=== PATIENT | female | born 1950 | race Caucasian/White ===

== ENCOUNTER 2020-10-03 07:36 | Outpatient (REF) | payer OTHER, SELFPAY ==
[2020-10-03 10:01] LABS: Free T4 (Free Thyroxine) 1.14 ng/dL (0.71-1.85); Thyroid Stimulating Hormone 9.34 uIU/mL (0.32-4.0)
== END 2020-10-03 07:37 | disposition home or self-care (01) ==
LOC: HO.LAB 07:36
PROVIDERS: PCP Internal Medicine; Visit Provider Internal Medicine Endocrinology, Diabetes & Metabolism
DX: E03.9 Hypothyroidism, unspecified (principal)
CPT/HCPCS: 84439; 84443

== ENCOUNTER → 2020-10-04 07:43 | Outpatient (BNVA) | payer OTHER, SELFPAY | PROVIDERS: PCP Internal Medicine; Referring Provider Internal Medicine; Visit Provider Internal Medicine Endocrinology, Diabetes & Metabolism | DX: Z76.89 Persons encountering health services in other specified circumstances (principal) ==

== ENCOUNTER 2020-12-05 09:28 | Outpatient (REF) | payer MEDICARE, SELFPAY ==
[2020-12-05 10:53] LABS: Free T4 (Free Thyroxine) 1.34 ng/dL (0.71-1.85); Thyroid Stimulating Hormone 0.81 uIU/mL (0.32-4.0)
== END 2020-12-05 09:29 | disposition home or self-care (01) ==
LOC: HO.LAB 09:28
PROVIDERS: PCP Internal Medicine; Visit Provider Internal Medicine Endocrinology, Diabetes & Metabolism
DX: E03.9 Hypothyroidism, unspecified (principal); E78.5 Hyperlipidemia, unspecified
CPT/HCPCS: 36415; 84439; 84443

== ENCOUNTER 2021-01-30 07:22 | Outpatient (REF) | payer MEDICARE, SELFPAY ==
[2021-01-30 09:03] LABS: Thyroid Stimulating Hormone 2.21 uIU/mL (0.32-4.0)
== END 2021-01-30 07:23 | disposition home or self-care (01) ==
LOC: HO.LAB 07:22
PROVIDERS: PCP Internal Medicine; Visit Provider Internal Medicine Endocrinology, Diabetes & Metabolism
DX: E03.9 Hypothyroidism, unspecified (principal)
CPT/HCPCS: 36415; 84439; 84443

== ENCOUNTER → 2021-02-03 07:37 | Outpatient (BNVA) | payer MEDICARE, SELFPAY | PROVIDERS: PCP Internal Medicine; Visit Provider Internal Medicine Endocrinology, Diabetes & Metabolism | DX: Z13.89 Encounter for screening for other disorder (principal) | CPT/HCPCS: Q3014 ==

== ENCOUNTER 2021-04-07 08:09 | Outpatient (REF) | payer MEDICARE, SELFPAY ==
--- NOTE | ~2021-04-07 | MM_ITS ---
EXAMINATION: MM SCREENING DIGITAL BREAST TOMOSYNTHESIS, BILATERAL CLINICAL INFORMATION: Screening. Asymptomatic. The lifetime risk of breast cancer based on the Tyrer-Cuzick Model is 6%. COMPARISON: Mammography: 03/23/2020, 10/06/2018, 09/12/2017, 03/30/2015 TECHNIQUE: Digital breast tomosynthesis is performed in both the craniocaudal and mediolateral oblique views along with computer-aided detection (CAD). Synthesized 2D images are generated from the tomosynthesis. Additional right CC view is provided. FINDINGS: There are scattered areas of fibroglandular density (ACR BI-RADS breast composition Category b). There are no significant masses, abnormal calcifications, or other abnormalities. The axilla are unremarkable. There is chronic bilateral nipple retraction, greater on right. MM/MM tomosynthesis screening BI IMPRESSION: No significant changes from prior exams. ASSESSMENT: BI-RADS 2: Benign RECOMMENDATION: Routine annual mammography screening. This patient's information was entered into a reminder system with a target due date for their next mammogram.
== END 2021-04-07 08:10 | disposition home or self-care (01) ==
LOC: HO.MAMMO 08:09
PROVIDERS: PCP Internal Medicine; Visit Provider Internal Medicine
DX: Z12.31 Encounter for screening mammogram for malignant neoplasm of breast (principal)
CPT/HCPCS: 77063; 77067

== ENCOUNTER → 2021-06-29 09:31 | Outpatient (REF) | payer MEDICARE, SELFPAY ==
--- NOTE | ~2021-06-29 | US_ITS ---
EXAMINATION: US EXTRACRANIAL CAROTID DUPLEX, BILATERAL CLINICAL INFORMATION: Bilateral carotid disease, history of left endarterectomy COMPARISON: Carotid ultrasound on 06/15/2020 TECHNIQUE: Real-time ultrasound and Doppler techniques (integrating B-mode 2-D vascular images, Doppler spectral analysis and color-flow Doppler imaging) were utilized to interrogate the extracranial carotid arteries, the vertebral arteries and proximal subclavian arteries bilaterally. The degree of stenosis is determined by criteria similar to NASCET. FINDINGS: Right Side: 1. There is calcified atherosclerotic plaque seen in the bifurcation/proximal ICA region. 2. The common carotid artery PSV proximally is 63 cm/s and distally 59 cm/s. 3. The proximal internal carotid artery velocities are 128 cm/s systolic and 52 cm/s diastolic. 4. The proximal external carotid artery PSV is 167 cm/s. 5. The vertebral artery shows antegrade flow. 6. The subclavian artery waveforms are normal. Left Side: 1. There is calcified atherosclerotic plaque seen in the bifurcation/proximal ICA region. 2. The common carotid artery PSV proximally is 107 cm/s and distally 85 cm/s. 3. The proximal internal carotid artery velocities are 47 cm/s systolic and 21 cm/s diastolic. 4. The proximal external carotid artery PSV is 105 cm/s. 5. The vertebral artery shows antegrade flow. 6. The subclavian artery waveforms are normal. Incidental note is made of bilateral normal-appearing cervical lymph nodes. US/US carotid duplex BI IMPRESSION: 1. RIGHT: Moderate, hemodynamically significant stenosis of the proximal right internal carotid artery corresponding to a 50-79% stenosis by velocity criteria. 2. LEFT: Minimal, non-hemodynamically significant stenosis of the proximal left internal carotid artery corresponding to a 0-49% stenosis by velocity criteria. 3. Mild progression of disease on the right compared to 06/15/2020.
--- NOTE | 2021-06-29 09:34 | CA_ITS ---
Transthoracic Echocardiogram Patient (Last, First, Middle): Izzy Weller T Gender: Female Date of : 1950 Age: 70 Procedure Date: 06/29/2021 Procedure Type: Transthoracic Echocardiogram Location: OP Height: 162.56 cm Weight: 120.2 kg BSA: 2.20 m2 Heart Rate: bpm BP: 110 / 70 mmHg Veterinarian: OXANA Referring MD: Efren Duggan MD Dye Line Operator: Efren Duggan MD Symptoms: I35.0 - Nonrheumatic aortic (valve) stenosis Study Quality: Fair ECG Rhythm: Sinus Conclusions: - 1. Normal LV systolic function with grade 1 diastolic dysfunction 2. Moderate to severe, more likely moderate aortic stenosis 3. Normal RV systolic pressure 4. No gross pericardial effusion Findings Left Ventricle Normal left ventricular size, thickness, and systolic function. The visually estimated ejection fraction is between 55-60%. There is no evidence of regional wall motion abnormalities. Spectral Doppler is indicative of an impaired relaxation filling pattern. E/E prime ratio is <8, consistent with normal filling pressures. Evidence suggests grade I (mild) diastolic dysfunction. Right Ventricle Normal right ventricular cavity size and systolic function. Atria The left atrium is normal in size. Interatrial shunt cannot be excluded. The right atrium is normal in size. Aortic Valve The aortic valve was not well visualized. There is moderate calcification of the aortic valve. There is moderate to severe aortic valve stenosis. The peak aortic gradient is 61 mmHg.The mean gradient is 29 mmHg. The aortic valve area is 1.00 cm2. There is mild aortic valve regurgitation. Mitral Valve The mitral valve was not well visualized. There is mild anterior mitral leaflet thickening. There is mild mitral annular calcification. There is trace mitral valve regurgitation. There is no mitral valve stenosis. Pulmonic Valve The pulmonic valve was not well visualized. Tricuspid Valve Likely normal tricuspid valve structure and function. There is trace tricuspid valve regurgitation. The right ventricular systolic pressure is normal. The right ventricular systolic pressure is 29 mmHg. Normal right atrial pressure. There is no evidence of pulmonary hypertension. Great Vessels All visible segments of the aorta are normal in size. The pulmonary artery was not well visualized. Venous The inferior vena cava is normal in size and collapses greater than 50% with inspiration. Pericardium/Pleural There is no evidence of pericardial effusion. Prior Study Comparison Changes noted compared to prior study dated: 06/15/2020. Aortic stenosis is more in the range of moderate to severe aortic stenosis, severity of aortic stenosis could be overestimated due to measured LVOT diameter Measurements 2D Linear Measurements IVSd: 1.13 0.6-0.9/0.6-1.0 cm LVIDd: 3.45 3.9-5.3/4.2-5.9 cm LVIDd Index: 1.57 2.4-3.2/2.2-3.1 cm/m2 LVIDs: 2.43 2.0-3.6 cm LVPWd: 1.01 0.7-1.1 cm Ao Root: 3.00 2.1-3.5 cm LA Diam: 3.00 2.7-3.8/3.0-4.0 cm LAIDs Index: 1.36 1.5-2.3 cm/m2 LV Mass: 138.96 67-162/88-224 g LV Mass Index: 63.16 43-95/49-115 g/m2 LVOT Diam: 1.90 3.0+(-)1.3 cm 2D Systolic Function EF 4C: 57.00 >55% EF 2C: 58.40 >55% EF BiP: 57.60 >55% Mitral Valve MV Pk E: 0.75 MV PK A: 0.93 MV Decel Time: 191.00 E/A: 0.80 E'Lateral: 8.49 E'Medial: 8.05 E/E' Med: 9.30 E/E' Lat: 8.80 PHT: 56.00 MVA PHT: 3.93 Decel Magoffin: 3.90 Aortic Valve AoV Pk Kostas: 3.92 AoV Mn Kostas: 2.47 AoV VTI: 0.67 AoV Pk Grad: 61.00 Aov Mn Grad: 29.00 SERGIO Cont.VTI: 1.00 LVOT LVOT Pk Kostas: 1.14 LVOT Mn Kostas: 0.81 LVOT VTI: 0.24 LVOT Pk Grad: 5.00 LVOT Mn Grad: 3.00 LVOT Diam: 1.90 LVOT Area: 2.84 Diastolic Function MV Pk E: 0.75 MV Pk A: 0.93 E/A: 0.80 E'Medial: 8.05 E/E' Med: 9.30 E' Laterial: 8.49 E/E' Lat: 8.80 Right Ventricle TAPSE (mm): 2.26 TVS' Kostas: 16.00 Tricuspid Valve TR Pk Kostas: 2.57 TR Pk Grad: 26.00 RA Press: 3.00 RVSP: 29.00 Great Vessels Aorta Ao Root-2D: 3.00 2.0-3.7 cm Ao Asc: 3.10 2.1-3.4 cm Ao Arch: 2.90 Updated in Other Vendor System with Status of Final Efren Duggan MD electronically signed on 06/30/2021 3:38:24 PM with status of Final
== END ==
LOC: HO.CARD 09:31
PROVIDERS: PCP Internal Medicine; Visit Provider Internal Medicine Cardiovascular Disease
DX: I65.23 Occlusion and stenosis of bilateral carotid arteries (principal); Q25.3 Supravalvular aortic stenosis; Z98.890 Other specified postprocedural states
CPT/HCPCS: 93306; 93880

== ENCOUNTER → 2021-07-03 14:18 | Outpatient (BNVA) | payer MEDICARE, SELFPAY | PROVIDERS: PCP Internal Medicine; Referring Provider Internal Medicine; Visit Provider Internal Medicine Cardiovascular Disease | DX: I35.0 Nonrheumatic aortic (valve) stenosis (principal); I65.23 Occlusion and stenosis of bilateral carotid arteries | CPT/HCPCS: 93005; 99212 ==

== ENCOUNTER 2021-08-14 09:58 | Outpatient (REF) | payer MEDICARE, SELFPAY ==
[2021-08-14 10:59] LABS: Anion Gap 12 (12-20); Blood Urea Nitrogen 14 mg/dL (9-16); Calcium 9.5 mg/dL (8.4-10.2); Carbon Dioxide 28 mmol/L (22-29); Chloride 108 mmol/L (96-108); Cholesterol 118 mg/dL; Estimated Glomerular Filt Rate > 60; Glucose Fasting 112 mg/dL (60-99); HDL Cholesterol 46 mg/dL; LDL Cholesterol Calculated 54 mg/dl; Potassium 4.4 mmol/L (3.3-5.1); Sodium 144 mmol/L (135-145); Triglycerides 91 mg/dL
[2021-08-14 11:22] LABS: Thyroid Stimulating Hormone 0.74 uIU/mL (0.32-4.0)
[2021-08-14 11:23] LABS: Free T4 (Free Thyroxine) 1.31 ng/dL (0.71-1.85)
== END 2021-08-14 09:59 | disposition home or self-care (01) ==
LOC: HO.LAB 09:58
PROVIDERS: Internal Medicine Cardiovascular Disease; Absent Provider Internal Medicine Endocrinology, Diabetes & Metabolism; PCP Internal Medicine; Visit Provider Physician Assistant
DX: I10 Essential (primary) hypertension (principal); Z78.0 Asymptomatic menopausal state; I25.10 Atherosclerotic heart disease of native coronary artery without angina pectoris; I65.23 Occlusion and stenosis of bilateral carotid arteries; E78.5 Hyperlipidemia, unspecified; E03.9 Hypothyroidism, unspecified
CPT/HCPCS: 36415; 80048; 80061; 82306; 84439; 84443; 86141

== ENCOUNTER 2021-12-21 11:00 | Outpatient (RCR) | payer MEDICARE, SELFPAY | END 2022-01-31 15:30 | disposition home or self-care (01) | LOC: HO.OT 11:00 | PROVIDERS: PCP Internal Medicine; Visit Provider Internal Medicine | DX: M25.521 Pain in right elbow (principal) | CPT/HCPCS: 97110; 97140; 97165; 97760 ==

== ENCOUNTER 2022-01-31 08:02 | Outpatient (REF) | payer MEDICARE, SELFPAY ==
--- NOTE | ~2022-01-31 | US_ITS ---
EXAMINATION: US THYROID CLINICAL INFORMATION: Nontoxic multinodular goiter. COMPARISON: Thyroid ultrasound 11/25/2019. TECHNIQUE: Linear transducer grayscale and color Doppler examination with attention to the region of the thyroid. FINDINGS: SIZE: Measurements of the thyroid lobes and nodules are given in sagittal, anteroposterior and transverse dimensions respectively. Right Thyroid Lobe: 2.7 x 0.8 x 1.4 cm, volume 1.6 mL. Previously 3.0 x 0.80 x 1.1 cm, volume 1.4 mL. Parenchyma: The gland echotexture is homogeneous. Thyroid vascularity is normal. Left Thyroid Lobe: 2.2 x 0.8 x 1.1 cm, volume 1.0 mL. Previously 2.8 x 0.90 x 1.0 cm, volume 1.3 mL. Parenchyma: The gland echotexture is homogeneous. Thyroid vascularity is normal. Isthmus: 0.2 cm in maximum AP dimension. Previously 0.20 cm. Estimated total number of nodules greater than or equal to 1 cm: 0. Operations Manager Station nodules are described as follows: 1. Location: Left mid. Size: 0.4 x 0.2 x 0.2 cm, volume 0.007 mL. Previously: 0.8 x 0.2 x 0.4 cm, volume 0.032 mL. Nodule characteristics: Composition: Solid (2). Echogenicity: Hypoechoic (2). Shape: Not taller than wide (0). Margins: Smooth (0). Echogenic Foci: None (0). ACR TI-RADS total points: 4 ACR TI-RADS category: 4 Significant change in size (>/= 20% in 2 dimensions and minimal increase of 2 mm or 50% or greater increase in volume): Change in features: Change in ACR TI-RADS risk category: Not applicable 2. Location: Right inferior. Size: 0.4 x 0.2 x 0.2 cm, volume 0.009 mL. Previously: 0.5 x 0.3 x 0.2 cm, volume 0.015 mL. Nodule characteristics: Composition: Solid (2). Echogenicity: Isoechoic (1). Shape: Not taller than wide (0). Margins: Smooth (0). Echogenic Foci: None (0). ACR TI-RADS total points: 3 ACR TI-RADS category: 3 Significant change in size (>/= 20% in 2 dimensions and minimal increase of 2 mm or 50% or greater increase in volume): Change in features: Change in ACR TI-RADS risk category: Not applicable NODES: There is a lymph node adjacent to the right lobe. This measures 1.4 x 0.8 x 8 cm sagittal AP and transverse dimension. This is normal in size and appears diffusely hypoechoic with loss of fatty hilum. This is similar to November 2019 exam. US/US thyroid IMPRESSION: Small thyroid gland. No significant change in bilateral small nodules. ACR TI-RADS RECOMMENDATION REFERENCE: Ultrasound-guided fine-needle aspiration, followup ultrasound, no further follow up. * TR1 (0 point) and TR 2 (2 points): No FNA or follow up * TR3 (3 points): FNA if more than or equal to 2.5 cm in maximum dimension, followup ultrasound in 1, 3 and 5 years if 1.5 to 2.4 cm in maximum dimension. * TR4 (4-6 points): FNA if more than or equal to 1.5 cm in maximum dimension, followup ultrasound in 1, 2, 3 and 5 years if 1 to 1.4 cm in maximum dimension. * TR5 (more than or equal to 7 points): FNA if more than or equal to 1 cm in maximum dimension, followup ultrasound every year for 5 years if 0.5 to 0.9 cm in maximum dimension. * TR3, TR4 or TR5 nodules that are below the size threshold for follow up receive no follow up.
== END 2022-01-31 08:03 | disposition home or self-care (01) ==
LOC: HO.US 08:02
PROVIDERS: PCP Internal Medicine; Visit Provider Internal Medicine Endocrinology, Diabetes & Metabolism
DX: E04.2 Nontoxic multinodular goiter (principal)
CPT/HCPCS: 76536

== ENCOUNTER → 2022-03-01 08:00 | Outpatient (BNVA) | payer MEDICARE, SELFPAY | PROVIDERS: PCP Internal Medicine; Visit Provider Internal Medicine Endocrinology, Diabetes & Metabolism | DX: E03.9 Hypothyroidism, unspecified (principal); E04.1 Nontoxic single thyroid nodule; Z79.899 Other long term (current) drug therapy | CPT/HCPCS: 99212 ==

== ENCOUNTER 2022-03-12 10:08 | Outpatient (REF) | payer MEDICARE, SELFPAY ==
[2022-03-12 11:44] LABS: C Reactive Protein 0.42 mg/dL (< or = 0.50)
[2022-03-12 12:09] LABS: Free T4 (Free Thyroxine) 1.85 ng/dL (0.71-1.85); Thyroid Stimulating Hormone 0.06 uIU/mL (0.32-4.0)
[2022-03-14 06:32] LABS: Thyroid Peroxidase Antibodies 3 IU/mL (<9)
== END 2022-03-12 10:09 | disposition home or self-care (01) ==
LOC: HO.HMGCLDS 10:08
PROVIDERS: Absent Provider Internal Medicine Cardiovascular Disease; PCP Internal Medicine; Visit Provider Internal Medicine
DX: E03.9 Hypothyroidism, unspecified (principal); R79.82 Elevated C-reactive protein (CRP)
CPT/HCPCS: 36415; 84439; 84443; 86140; 86376

== ENCOUNTER 2022-04-11 07:37 | Outpatient (REF) | payer MEDICARE, SELFPAY ==
--- NOTE | ~2022-04-11 | MM_ITS ---
EXAMINATION: MM SCREENING DIGITAL BREAST TOMOSYNTHESIS, BILATERAL CLINICAL INFORMATION: Screening. Asymptomatic. The lifetime risk of breast cancer based on the Tyrer-Cuzick Model is 18%. COMPARISON: Mammography: 04/07/2021, 01/22/2020, 10/06/2018, 09/12/2017 TECHNIQUE: Digital breast tomosynthesis is performed in both the craniocaudal and mediolateral oblique views along with computer-aided detection (CAD). Synthesized 2D images are generated from the tomosynthesis. Additional bilateral CC views are provided. FINDINGS: There are scattered areas of fibroglandular density (ACR BI-RADS breast composition Category b). There is inhomogeneous parenchymal pattern with shifting fibroglandular densities from year to year related to positioning. There is no developing density or interval significant mass or architectural abnormality. There is chronic bilateral nipple retraction. No skin thickening. Scattered ductal secretory calcifications are present on the right and some isolated scattered punctate round calcifications on left. The axilla are unremarkable. No significant changes. MM/MM tomosynthesis screening BI IMPRESSION: No significant changes from prior studies. ASSESSMENT: BI-RADS 2: Benign RECOMMENDATION: Routine annual mammography screening. This patient's information was entered into a reminder system with a target due date for their next mammogram.
== END 2022-04-11 07:38 | disposition home or self-care (01) ==
LOC: HO.MAMMO 07:37
PROVIDERS: Visit Provider Internal Medicine
DX: Z12.31 Encounter for screening mammogram for malignant neoplasm of breast (principal)
CPT/HCPCS: 77063; 77067

== ENCOUNTER → 2022-06-13 09:29 | Outpatient (REF) | payer MEDICARE, SELFPAY ==
--- NOTE | ~2022-06-13 | US_ITS ---
EXAMINATION: US EXTRACRANIAL CAROTID DUPLEX, BILATERAL CLINICAL INFORMATION: Carotid stenosis, status post left carotid endarterectomy COMPARISON: 06/29/2021 TECHNIQUE: Real-time ultrasound and Doppler techniques (integrating B-mode 2-D vascular images, Doppler spectral analysis and color-flow Doppler imaging) were utilized to interrogate the extracranial carotid arteries, the vertebral arteries and proximal subclavian arteries bilaterally. The degree of stenosis is determined by criteria similar to NASCET. FINDINGS: Right Side: 1. There is mild to moderate atherosclerotic plaque seen in the bifurcation/proximal ICA region. 2. The common carotid artery PSV proximally is 80 cm/s and distally 76 cm/s. 3. The proximal internal carotid artery velocities are 157 cm/s systolic and 39.3 cm/s diastolic. 4. The proximal external carotid artery PSV is 112 cm/s. 5. The vertebral artery shows antegrade flow. 6. The subclavian artery waveforms are normal. Left Side: 1. Postsurgical changes again seen consistent with prior carotid endarterectomy. There is no significant recurrent atherosclerotic plaque seen in the bifurcation/proximal ICA region. 2. The common carotid artery PSV proximally is 92 cm/s and distally 90 cm/s. 3. The proximal internal carotid artery velocities are 61 cm/s systolic and 20 cm/s diastolic. 4. The proximal external carotid artery PSV is 123 cm/s. 5. The vertebral artery shows antegrade flow. 6. The subclavian artery waveforms are normal. US/US carotid duplex BI IMPRESSION: 1. RIGHT: Moderate, hemodynamically significant stenosis of the proximal right internal carotid artery corresponding to a 50-79% stenosis by velocity criteria. 2. LEFT: Status post carotid endarterectomy without significant stenosis of the proximal left internal carotid artery corresponding to a 0-49% stenosis by velocity criteria. 3. There is no change in the category severity of disease when compared to the previous study dated 06/29/2021.
--- NOTE | 2022-06-13 09:32 | CA_ITS ---
Transthoracic Echocardiogram Patient (Last, First, Middle): Izzy Weller T Gender: Female Date of : 1950 Age: 71 Procedure Date: 06/13/2022 Procedure Type: Transthoracic Echocardiogram Location: OP Height: 162.56 cm Weight: 112.04 kg BSA: 2.14 m2 Heart Rate: 91 bpm BP: 120 / 80 mmHg Manager Small Business: ROSALES Referring MD: Efren Duggan MD [facility] [employer] Assembler: Efren Duggan MD Symptoms: I35.0 - Nonrheumatic aortic (valve) stenosis Study Quality: Adequate ECG Rhythm: Sinus Conclusions: - 1. Normal LV systolic function with grade 1 diastolic dysfunction 2. Severe aortic stenosis with mean gradient of 41 mmHg 3. Normal RV systolic pressure 4. No gross pericardial effusion 5. Mildly dilated ascending aorta Findings Left Ventricle Normal left ventricular size and systolic function. There is mildly increased left ventricular wall thickness. The visually estimated ejection fraction is between 55-60%. Spectral Doppler is indicative of an impaired relaxation filling pattern. E/E prime ratio is <8, consistent with normal filling pressures. Evidence suggests grade I (mild) diastolic dysfunction. Right Ventricle Normal right ventricular cavity size and systolic function. Atria The left atrium is normal in size. Interatrial shunt cannot be excluded. The right atrium is normal in size. Aortic Valve There is moderate calcification of the aortic valve. There is moderate thickening of the aortic valve. There is severe aortic valve stenosis. The peak aortic gradient is 66 mmHg.The mean gradient is 41 mmHg. There is no aortic valve regurgitation. Mitral Valve There is mild anterior and posterior mitral leaflet thickening. There is mild mitral annular calcification. There is trace mitral valve regurgitation. There is no mitral valve stenosis. Pulmonic Valve The pulmonic valve was not well visualized. Tricuspid Valve Likely normal tricuspid valve structure and function. There is trace tricuspid valve regurgitation. The right ventricular systolic pressure is normal. The right ventricular systolic pressure is 25 mmHg. Normal right atrial pressure. There is no evidence of pulmonary hypertension. Great Vessels The pulmonary artery was not well visualized. There is mild dilatation of the ascending aorta measuring 3.80 cm. Venous The inferior vena cava is normal in size and collapses greater than 50% with inspiration. Pericardium/Pleural There is no evidence of pericardial effusion. Prior Study Comparison Changes noted compared to prior study dated: 06/29/2021. Aortic stenosis has progressed Measurements 2D Linear Measurements IVSd: 1.27 0.6-0.9/0.6-1.0 cm LVIDd: 3.01 3.9-5.3/4.2-5.9 cm LVIDd Index: 1.41 2.4-3.2/2.2-3.1 cm/m2 LVIDs: 1.96 2.0-3.6 cm LVPWd: 1.13 0.7-1.1 cm LA Diam: 2.70 2.7-3.8/3.0-4.0 cm LAIDs Index: 1.26 1.5-2.3 cm/m2 LV Mass: 136.31 67-162/88-224 g LV Mass Index: 63.70 43-95/49-115 g/m2 LVOT Diam: 1.90 3.0+(-)1.3 cm 2D Systolic Function EF 4C: 53.80 >55% EF 2C: 61.00 >55% EF BiP: 57.30 >55% Mitral Valve MV Pk E: 0.66 MV PK A: 1.03 MV Decel Time: 163.00 E/A: 0.60 E'Lateral: 5.98 E/E' Lat: 11.00 PHT: 48.00 MVA PHT: 4.58 Decel Roberts: 4.02 Aortic Valve AoV Pk Kostas: 4.05 AoV Mn Kostas: 3.09 AoV VTI: 0.94 AoV Pk Grad: 66.00 Aov Mn Grad: 41.00 SERGIO Cont.VTI: 0.57 LVOT LVOT Pk Kostas: 0.96 LVOT Mn Kostas: 0.71 LVOT VTI: 0.19 LVOT Pk Grad: 4.00 LVOT Mn Grad: 3.00 LVOT Diam: 1.90 LVOT Area: 2.84 Diastolic Function MV Pk E: 0.66 MV Pk A: 1.03 E/A: 0.60 E' Laterial: 5.98 E/E' Lat: 11.00 Right Ventricle TAPSE (mm): 18.90 TVS' Kostas: 15.70 Tricuspid Valve TR Pk Kostas: 2.34 TR Pk Grad: 22.00 RA Press: 3.00 RVSP: 25.00 Great Vessels Aorta Sinus of Valsalva: 3.40 2.0-3.5 cm Ao Asc: 3.80 2.1-3.4 cm Pulmonary Valve PV Pk Kostas: 0.77 Peak PV Grad: 2.00 Updated in Other Vendor System with Status of Final Efren Duggan MD electronically signed on 06/14/2022 6:04:35 PM with status of Final
== END ==
LOC: HO.CARD 09:29
PROVIDERS: PCP Internal Medicine; Visit Provider Internal Medicine Cardiovascular Disease
DX: I35.0 Nonrheumatic aortic (valve) stenosis (principal); I65.29 Occlusion and stenosis of unspecified carotid artery
CPT/HCPCS: 93306; 93880

== ENCOUNTER → 2022-07-10 10:47 | Outpatient (BNVA) | payer MEDICARE, SELFPAY | PROVIDERS: PCP Internal Medicine; Referring Provider Internal Medicine; Visit Provider Internal Medicine Cardiovascular Disease | DX: I35.0 Nonrheumatic aortic (valve) stenosis (principal); Z79.899 Other long term (current) drug therapy | CPT/HCPCS: 93005; 99212 ==

== ENCOUNTER → 2022-07-17 09:58 | Outpatient (REF) | payer MEDICARE, SELFPAY ==
--- NOTE | 2022-07-17 10:01 | CA_ITS ---
Acquisition Time: 2022-07-17 10:15:24 Total Exercise Time: 00:02:54 Test Indications: AORTIC STENOSIS Medications: Protocol: JOEY Max HR: 151 BPM 101% of Pred: 149 BPM Max BP: 162/080 mmHG Max Work Load: 4.6 METS Exercise stress test with exercise 2 min 54 sec of Joey protocol, achieving 101% MPHR, with report of moderate shortness of breath and request to stop exercise, without chest discomfort or lightheadedness, with isolated PVC, with normotensive response to exercise, without EKG changes meeting criteria for ischemia. In recovery her sob resolved. Test reviewed with Dr Duggan Referred By: Efren Duggan Overread By: ALEX JUAN
== END ==
LOC: HO.CARD 09:58
PROVIDERS: Visit Provider Internal Medicine Cardiovascular Disease
DX: I35.0 Nonrheumatic aortic (valve) stenosis (principal)
CPT/HCPCS: 93017

== ENCOUNTER 2022-07-25 10:30 | Outpatient (REF) | payer MEDICARE, SELFPAY ==
[2022-07-25 13:53] LABS: MANUAL DIFF FLAG NO
[2022-07-25 14:00] LABS: Basophils Absolute Auto 0.1 X10*3/uL (0.0-0.2); Basophils Percent Auto 0.7 % (0-2); Eosinophils Absolute Auto 0.1 X10*3/uL (0.0-0.4); Eosinophils Percent Auto 1.9 % (0-4); Hematocrit 44.8 % (37.0-47.0); Hemoglobin 14.4 g/dl (12.0-16.0); Imm Gran Abs Auto 0.01 X10*3/uL (0.00-0.03); Imm Gran Pct Auto 0.1 % (0.0-0.4); Lymphocytes Absolute Auto 2.4 X10*3/uL (1.2-4.9); Lymphocytes Percent Auto 35.1 % (20-40); Mean Corpuscular HGB Conc 32.1 g/dl (31.0-35.0); Mean Corpuscular Hemoglobin 30.5 pg (27.0-33.0); Mean Corpuscular Volume 94.9 fL (80.0-98.0); Mean Platelet Volume 9.9 fL (9.4-12.3); Monocytes Absolute Auto 0.7 X10*3/uL (0.1-1.2); Monocytes Percent Auto 9.8 % (2-11); Neutrophils Absolute Auto 3.5 x10*3/uL (2.0-8.3); Neutrophils Percent Auto 52.4 % (45-73); Platelet Count 257 X10*3/uL (160-400); Red Blood Count 4.72 X10*6/uL (4.20-5.50); Red Cell Distribution Width 13.1 % (11.0-16.0); White Blood Count 6.8 X10*3/uL (4.8-10.8)
[2022-07-25 14:05] LABS: INTERNATIONAL NORM RATIO 0.9 (0.9-1.1); Prothrombin Time 10.7 SEC (10.0-13.1)
[2022-07-25 14:19] LABS: Anion Gap 15 (12-20); Blood Urea Nitrogen 16 mg/dL (9-16); Calcium 9.7 mg/dL (8.4-10.2); Carbon Dioxide 27 mmol/L (22-29); Chloride 103 mmol/L (96-108); Cholesterol 180 mg/dL; Estimated Glomerular Filt Rate > 60; Glucose Random 104 mg/dL (60-115); HDL Cholesterol 49 mg/dL; LDL Cholesterol Calculated 110 mg/dl; Potassium 4.2 mmol/L (3.3-5.1); Sodium 141 mmol/L (135-145); Triglycerides 109 mg/dL
== END 2022-07-25 10:31 | disposition home or self-care (01) ==
LOC: HO.HMGCLDS 10:30
PROVIDERS: PCP Internal Medicine; Visit Provider Nurse Practitioner Family
DX: I35.0 Nonrheumatic aortic (valve) stenosis (principal); R94.39 Abnormal result of other cardiovascular function study
CPT/HCPCS: 36415; 80048; 80061; 85025; 85610

== ENCOUNTER 2022-09-11 11:58 | Outpatient (REF) | payer MEDICARE, SELFPAY ==
[2022-09-11 14:55] LABS: Free T4 (Free Thyroxine) 1.73 ng/dL (0.71-1.85); Thyroid Stimulating Hormone 0.02 uIU/mL (0.32-4.0)
== END 2022-09-11 11:59 | disposition home or self-care (01) ==
LOC: HO.HMGCLDS 11:58
PROVIDERS: PCP Internal Medicine; Visit Provider Internal Medicine
DX: E03.9 Hypothyroidism, unspecified (principal)
CPT/HCPCS: 36415; 84439; 84443

== ENCOUNTER → 2022-12-06 12:47 | Outpatient (BNVA) | payer MEDICARE, SELFPAY | PROVIDERS: PCP Internal Medicine; Referring Provider Internal Medicine; Visit Provider Internal Medicine Cardiovascular Disease | DX: I65.23 Occlusion and stenosis of bilateral carotid arteries (principal); Z95.2 Presence of prosthetic heart valve | CPT/HCPCS: 99212 ==

== ENCOUNTER 2023-01-31 08:34 | Outpatient (REF) | payer MEDICARE, SELFPAY ==
--- NOTE | ~2023-01-31 | US_ITS ---
EXAMINATION: US THYROID CLINICAL INFORMATION: Nontoxic single thyroid nodule. COMPARISON: Thyroid ultrasound 01/31/2022 and 11/25/2019. TECHNIQUE: Linear transducer grayscale and color Doppler examination with attention to the region of the thyroid. FINDINGS: SIZE: Measurements of the thyroid lobes and nodules are given in sagittal, anteroposterior and transverse dimensions respectively. Right Thyroid Lobe: 4.6 x 1.1 x 1.0 cm, volume 2.9 mL. Previously 2.7 x 0.8 x 1.4 cm, volume 1.6 mL. Parenchyma: The gland echotexture is homogeneous. Thyroid vascularity is normal. Left Thyroid Lobe: 3.7 x 1.2 x 1.0 cm, volume 2.5 mL. Previously 2.2 x 0.8 x 1.1 cm, volume 1.0 mL. Parenchyma: The gland echotexture is homogeneous. Thyroid vascularity is normal. Isthmus: 0.2 cm in maximum AP dimension. Previously 0.2 cm. Estimated total number of nodules greater than or equal to 1 cm: 0. 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 Location: Left mid pole. Size: 0.6 x 0.3 x 0.4 cm, volume 0.04 mL. Previously: 0.4 x 0.2 x 0.9 cm, volume 0.007 mL. Nodule characteristics: Composition: Cystic(0). ACR TI-RADS total points: 0 ACR TI-RADS category: 1 Significant change in size (>/= 20% in 2 dimensions and minimal increase of 2 mm or 50% or greater increase in volume): None Change in features: None Change in ACR TI-RADS risk category: This nodule was visualized on the previous study but not documented. Hence no TI-RADS comparison. NODES: No lymphadenopathy is seen in the tissue surrounding the thyroid gland. US/US thyroid IMPRESSION: Unremarkable thyroid ultrasound.
== END 2023-01-31 08:35 | disposition home or self-care (01) ==
LOC: HO.HMGCX 08:34
PROVIDERS: PCP Internal Medicine; Visit Provider Internal Medicine
DX: E03.9 Hypothyroidism, unspecified (principal); E04.1 Nontoxic single thyroid nodule
CPT/HCPCS: 76536

== ENCOUNTER 2023-02-11 11:01 | Outpatient (AMB) | payer MEDICARE, SELFPAY ==
[2023-02-11 11:28] VITALS: BP 114/80; PULSE 82; O2SAT 98; BMI 46.5
--- NOTE | 2023-02-11 11:28 | MHC.PC.OV ---
Vital Signs 02/11/23 11:28 Height 5 ft 4 in Weight 271 lb 4 oz BMI 46.5 BP 114/80 Blood Pressure Location Rt brachial Position Sitting Pulse 82 Pulse Source Pulse Oximeter Pulse Oximetry (%) 98 Oxygen Delivery Method Room Air Intake Visit Reasons: PE-insurance pays for PE Intake Note: pt is here today for pe Allergies codeine [Codeine] Allergy (Mild, Verified 02/11/23 11:56) NAUSEA, nausa BANDAIDS Allergy (Mild, Uncoded 02/11/23 11:56) RASH Ibuprofen Allergy (Unknown, Uncoded 02/11/23 11:56) bleeding ulcer Latex tape Allergy (Unknown, Uncoded 02/11/23 11:56) Rash NSAIDS/ASA Allergy (Unknown, Uncoded 02/11/23 11:56) BLEEDING ULCER Medication List - Last Reconciled 02/11/23 by Radha Felix MD acetaminophen (Tylenol Extra Strength) 500 mg PO Q6H PRN alirocumab (Praluent Pen) 75 mg subcut Q2W aspirin (Adult Low Dose Aspirin) 81 mg PO DAILY cholecalciferol (vitamin D3) 2,000 units PO DAILY clopidogrel 75 mg PO DAILY coenzyme Q10 (CoQ-10) 200 mg PO DAILY colesevelam 1,875 mg (3 x 625 mg) PO BID ezetimibe 10 mg PO DAILY metoprolol tartrate 25 mg PO DAILY omeprazole 40 mg PO QAM rosuvastatin 40 mg PO DAILY Tirosint (levothyroxine) 250 mcg (2 x 125 mcg) PO DAILY 90 days NS zinc acetate 25 mg PO DAILY Tobacco use date assessed: 02/11/23 Fall risk assessment: No Falls in past year Last assessed Fall Risk: 02/11/23 HPI PE-insurance pays for PE HPI Details 72-year-old lady here today for her physical exam.She has history hypertensive heart disease, hypercholesterolemia, hypothyroidism, osteoarthritis carotid artery disease and aortic stenosis s/p TAVR 09/24/2022. She has been feeling well, but gets occasional episodes of shortness of breath on exertion. She also has been having pain in her left upper back and pain stiffness in her right elbow, which has been present now for the last several days. Takes Tylenol which does not afford any significant relief. No history of trauma or strenuous exertion. Currently followed by Cardiology for carotid artery stenosis she is continue dual antiplatelet therapy for 6 months after TAVR , and switch to low-dose aspirin therapy for life. She needs SBE prophylaxis as per ACC/[facility] guidelines. [facility] Medical History Atherosclerosis of both carotid arteries Dyslipidemia Hypertension Hypothyroidism Osteoarthritis Right elbow pain Right elbow pain Severe aortic stenosis Thyroid nodule Surgical History S/p TAVR (transcatheter aortic valve replacement), bioprosthetic History of esophagogastroduodenoscopy (EGD) History of left knee replacement Hx of endarterectomy Hx of breast biopsy Hx of tubal ligation Hx of tonsillectomy Hx of cholecystectomy Family History Father Heart valve replaced Abdominal aortic aneurysm Mother Enlarged heart Hodgkins lymphoma Cancer Social History Housing: House Alcohol intake: current Patient Tobacco Use Status: Never used Tobacco e-Cigarette/Vaping Use: Never Used service: No Current occupational status: retired Cognitive needs: No Hearing needs: No Vision needs: No Questionnaire PHQ-9 Over the last 2 weeks, how often have you been bothered by any of the following problems? 1. Little interest or pleasure in doing things: not at all 2. Feeling down, depressed, or hopeless: not at all 3. Trouble falling or staying asleep, or sleeping too much: not at all 4. Feeling tired or having little energy: not at all 5. Poor appetite or overeating: several days 6. Feeling bad about yourself - or that you are a failure or have let yourself or your family down: not at all 7. Trouble concentrating on things, such as reading the newspaper or watching television: not at all 8. Moving or speaking so slowly that other people could have noticed. Or the opposite - being so fidgety or restless that you have been moving around a lot more than usual: not at all 9. Thoughts that you would be better off or of hurting yourself in some way: not at all Total score: 1 Depression Screening Interpretation: Negative 11204 - PHQ-9 Billing: Yes Source: Developed by Drs. Rohan Bernabe, Janet Robledo, Valentin Oliveira and colleagues, with an educational boone from [employer]. Thrive Questionnaire Declines Thrive assessment: No Date Thrive assessed: 02/11/23 I am a: Patient What is your living situation today?: I have a steady place to live Within the past 12 months, did the food you bought not last and you didn't have the money to get more?: Never true Within the past 12 months, did you worry whether your food would run out before you got money to buy more?: Never true Do you have trouble paying for medicines?: No Do you have trouble getting transportation to medical appointments?: No Do you have trouble paying your heating and electricity bill?: No Do you have trouble taking care of your child, family member or friend?: No Do you have trouble with day-to-day activities such as bathing, preparing meals, shopping, managing finances, etc.?: No Are you currently unemployed and looking for a job?: No Are you interested in more education?: No AUDIT C Alcohol Use Questionnaire (AUDIT-C) 1. How often do you have a drink containing alcohol?: Never Total Score: 0 ANISHA-7 AMB Questionnaire ANISHA-7 Date ANISHA - 7 assessed: 02/11/23 Feeling nervous, anxious, or on edge: 0 = Not at all Not being able to stop or control worryin = Not at all Worrying too much about different things: 0 = Not at all Trouble relaxin = Not at all Being so restless that it is hard to sit still: 0 = Not at all Becoming easily annoyed or irritable: 0 = Not at all Feeling afraid as if something awful might happen: 0 = Not at all Total ANISHA-7 score (0-4 normal; 5-9 mild; 10-14 moderate; 15-21 severe): 0 Source: Developed by Drs. Rohan Bernabe, Janet Robledo, Valentin Oliveira and colleagues, with an educational boone from [employer]. ANISHA-7 Assessment Billing ANISHA-7 Assessment Tool: ANISHA-7 Assessment 08776 Review of Systems Const Denies fatigue, Denies fever(s), Denies frequent falls, Denies weakness and Denies weight loss Eyes Denies change in vision ENT Denies dizziness Card Denies chest pain, Denies leg edema, Denies lightheadedness, Denies palpitations and Denies orthopnea Resp Denies cough GI Denies hematochezia and Denies change in stool character Reports no additional complaints Musc Denies abnormal gait, Denies muscle weakness, Denies numbness, Denies radiating pain into limb and Denies tingling Skin/Breast Denies breast pain, Denies breast mass and Denies rash Neuro Denies abnormal gait, Denies dizziness, Denies frequent falls, Denies numbness, Denies tingling and Denies weakness Psych Reports no additional complaints Endo Denies fatigue and Denies palpitations Jesse/Lymph Reports no additional complaints Aller/Immun Reports no additional complaints Physical exam (Primary Care) Vital Signs: Last Vital Signs Pulse 82 02/11/23 11:28 BP 114/80 02/11/23 11:28 Pulse Ox 98 02/11/23 11:28 Oxygen Delivery Method Room Air 02/11/23 11:28 BMI result Body Mass Index 46.5 BMI Assessment/Plan discussion: High BMI High, discussed plan: lifestyle, weight reduction and dietary Tobacco/Smoking Status: Tobacco use Status Tobacco use date assessed 02/11/23 02/11/23 11:40 Patient Tobacco Use Status Never used Tobacco 02/11/23 11:40 e-Cigarette/Vaping Use Never Used 02/11/23 11:40 PHQ-9: PHQ-9 Score PHQ-9: Total score 1 08/04/23 17:10 Depression Screening Interpretation: Negative Thrive Assessment: Date of Thrive Assessment Date Thrive assessed 02/11/23 02/11/23 11:45 Const Other: Alert oriented x3, no acute cardiorespiratory distress noted ambulatory with normal gait Orientation/consciousness: patient oriented x3 [facility] Head: Yes normocephalic and Yes atraumatic Ears: hearing grossly normal bilaterally, TM's normal bilaterally and EAC's normal General nose exam: Normal external nose present and No nasal discharge present Face and sinus: Yes sinuses nontender and Yes face symmetric Mouth: Normal oral and palatal mucosa present and moist mucous membranes Eyes General: appearance normal, both eyes and all related structures Neck Other: Thyroid gland nonpalpable Neck: Yes full ROM, Yes no lymphadenopathy and Yes supple Carotids: bruit on the right Chest Breast/axilla palpation: normal palpation of the breasts Resp Effort & Inspection: normal respiratory effort and able to speak in complete sentences Auscultation: clear to auscultation bilaterally Cardio Other: S S1-S2 present regular rate and rhythm Heart sounds: Murmur heart sound present systolic at the base GI Other: Normal bowel sounds, soft, nontender, no mass palpated Back/Spine/Pelvis Other: Slight tenderness on palpation over right trapezius area, no gross bone deformity or joint swelling seen Skin General skin exam: no rashes or lesions noted Neuro General: patient oriented x3, gait normal, tone normal, moves all extremities, Normal light touch and pain sensation, no focal motor deficits and CN's II-XI intact bilaterally Extrem General: Yes full ROM, Yes no joint enlargement, Yes no clubbing, cyanosis or edema, Yes no calf tenderness and Yes normal gait Psych Appearance: grossly normal and well kempt Mental Status: mental status grossly normal Speech and movement: Normal speech and movement present Affect: normal affect Attitude: cooperative Assessment and Plan Assessment & Plan (1) Annual visit for general adult medical examination with abnormal findings: Code(s): Z00.01 - Encounter for general adult medical examination with abnormal findings Plan: Will check appropriate labs. Continue regular dental visit every 6 months and regular eye exams, at least every 2 years. Take adequate calcium in diet and vitamin-D 3 at 2000 IU per cap once a day, in addition to weight-bearing exercises to help maintain good muscle tone and weight control. Instructed to do self-breast exam, and continue to get yearly mammogram. Has appointment already scheduled for both mammogram and bone density April 2023. She had a normal colonoscopy [place] [address] Meyers, only showing hemorrhoids, will hold off on doing any screening colonoscopy for this year as she just had her recent TAVR and is currently on dual anti-platelet therapy . Up-to-date with her Shingrix vaccination and pneumonia vaccines, reminded to get her flu shot and her COVID booster later this year. (2) Atherosclerosis of both carotid arteries: Code(s): I65.23 - Occlusion and stenosis of bilateral carotid arteries Plan: History of endarterectomy, Continue with clopidogrel and aspirin 81 mg daily another 2, and then switch to low-dose aspirin 81 mg daily for life. Continue with rosuvastatin 40 mg with goal LDL less than 70 mg/dL, and with control of blood pressure less than 130/80, currently followed by cardiology (3) Thyroid nodule: Code(s): E04.1 - Nontoxic single thyroid nodule Plan: She has multiple subcentimeter nodules. They have been stable ultrasounds over several years. Has been evaluated by Dr. Hoffman who recommended thyroid ultrasound every 2-3 years time. (4) Hypothyroidism: Code(s): E03.9 - Hypothyroidism, unspecified Qualifiers: Hypothyroidism type: acquired Qualified Code(s): E03.9 - Hypothyroidism, unspecified Plan: Continue Tirosint 250 mcg daily (5) Strain of left trapezius muscle: Code(s): S46.812A - Strain of other muscles, fascia and tendons at shoulder and upper arm level, left arm, initial encounter Plan: Physical therapy consult obtain (6) Right elbow pain: Code(s): M25.521 - Pain in right elbow Plan: Referred for physical therapy (7) Dyslipidemia: Code(s): E78.5 - Hyperlipidemia, unspecified Plan: Followed by cardiology currently on ezetimibe and praluent with goal LDL less than 70 mg/dL. Stressed importance of adherence to low-cholesterol diet and regular exercise, at least 30 minutes 3 to 4 times a week. Advised patient to make healthy food choices, eat more fruits, vegetables, whole grains, wild caught fish and low-fat dairy. Limit amount of meat and fried or fatty food products, as well as processed foods and fast foods. (8) Hypertension: Code(s): I10 - Essential (primary) hypertension Plan: Followed by cardiology continued on metoprolol tartrate 25 mg daily (9) S/p TAVR (transcatheter aortic valve replacement), bioprosthetic: Code(s): Z95.3 - Presence of xenogenic heart valve Plan: Continued on dual anti-platelet therapy, needs SBE prophylaxis Orders: Orders PT Evaluation and Treatment 02/11/23 S46.812A - Strain of other muscles, fascia and tendons at shoulder and upper arm level, left arm, initial encounter, M25.521 - Pain in right elbow Complete Blood Count Auto Diff 02/11/23 I65.23 - Occlusion and stenosis of bilateral carotid arteries, E04.1 - Nontoxic single thyroid nodule, E03.9 - Hypothyroidism, unspecified, Z78.0 - Asymptomatic menopausal state Basic Metabolic Panel Fasting 04 I65.23 - Occlusion and stenosis of bilateral carotid arteries, E04.1 - Nontoxic single thyroid nodule, E03.9 - Hypothyroidism, unspecified, Z78.0 - Asymptomatic menopausal state Vitamin D 25-OH Total 04 I65.23 - Occlusion and stenosis of bilateral carotid arteries, E04.1 - Nontoxic single thyroid nodule, E03.9 - Hypothyroidism, unspecified, Z78.0 - Asymptomatic menopausal state Coding Level of Care Code Est Pt Prev Care >65y(05686) Diagnoses Annual visit for general adult medical examination with abnormal findings Z00.01 Atherosclerosis of both carotid arteries I65.23 Thyroid nodule E04.1 Acquired hypothyroidism E03.9 Hypothyroidism type: acquired Strain of left trapezius muscle S46.812A Right elbow pain M25.521 Dyslipidemia E78.5 Hypertension I10 S/p TAVR (transcatheter aortic valve replacement), bioprosthetic Z95.3 Additional Codes ANISHA-7 Assessment Billing - ANISHA-7 Assessment Tool: ANISHA-7 Assessment [id number] ([id number])
== END 2023-02-11 12:43 | disposition home or self-care (01) ==
LOC: HO.HMGC 11:01
PROVIDERS: PCP Internal Medicine; Visit Provider Internal Medicine
DX: Z00.01 Encounter for general adult medical examination with abnormal findings (principal); E04.1 Nontoxic single thyroid nodule; I10 Essential (primary) hypertension; E03.9 Hypothyroidism, unspecified; I65.23 Occlusion and stenosis of bilateral carotid arteries; S46.812A Strain of other muscles, fascia and tendons at shoulder and upper arm level, left arm, initial encounter; M25.521 Pain in right elbow; E78.5 Hyperlipidemia, unspecified; Z95.3 Presence of xenogenic heart valve; Z78.0 Asymptomatic menopausal state
CPT/HCPCS: 99397

== ENCOUNTER 2023-03-08 08:50 | Outpatient (REF) | payer MEDICARE, SELFPAY ==
--- NOTE | ~2023-03-08 | US_ITS ---
EXAMINATION: US ABDOMEN COMPLETE CLINICAL INFORMATION: Right upper quadrant and lower rib area pain. COMPARISON: Ultrasound abdomen complete dated 03/09/2013 and 06/19/2012. TECHNIQUE: Real-time imaging of the abdominal viscera. FINDINGS: PANCREAS: Normal. ABDOMINAL AORTA: Mild atherosclerosis. No aneurysm. INFERIOR VENA CAVA: Visualized portions are normal. LIVER: The liver is normal in size. The liver contour is normal. There is diffuse increased liver parenchymal echogenicity, consistent with hepatic steatosis. No focal hepatic lesion. There is no intrahepatic biliary duct dilatation seen. GALLBLADDER: Surgically absent. COMMON BILE DUCT: Normal in caliber measuring 0.73 cm in diameter. RIGHT KIDNEY: Normal. No hydronephrosis. No renal calculi or focal parenchymal lesions. The kidney measures 10.6 cm in maximum dimension. LEFT KIDNEY: Normal. No hydronephrosis. No renal calculi or focal parenchymal lesions. The kidney measures 10.8 cm in maximum dimension. SPLEEN: Normal. The spleen measures 8.7 cm in maximum dimension. FREE FLUID: None. US/US abdomen complete IMPRESSION: Fatty liver.
== END 2023-03-08 08:51 | disposition home or self-care (01) ==
LOC: HO.HMGCX 08:50
PROVIDERS: PCP Internal Medicine; Visit Provider Internal Medicine Gastroenterology
DX: R10.11 Right upper quadrant pain (principal)
CPT/HCPCS: 76700

== ENCOUNTER 2023-04-09 08:57 | Outpatient (RCR) | payer MEDICARE, SELFPAY ==
--- NOTE | 2023-04-09 13:52 | MHC.OT.EP ---
[address] [phone] Occupational Therapy Plan of Care Patient Name: Izzy Weller Date of Evaluation: 04/09/23 Diagnosis: Right elbow pain Pain Location: Right elbow intermittent 4/10 Best: 0/10 Worst: 7/10 stabbing Pain Score: 4 Pain Scale Used: Numeric (0 - 10) Aggravating Factors: Lifting, elbow flexion Alleviating Factors: Stretch, rest Assessment: Pt is a 72 y/o female referred to OT with right elbow pain. Pt reports feeling a sharp pain in her elbow/bicep approx a year and a half ago when she was pushing up from a chair. No x-rays obtained, although she was referred to OT and had successful course of therapy. Several months ago, pt. reports experiencing a similar pain in right forearm/bicep which has not subsided. Presents to OT for management of symptoms. AROM in right shoulder/elbow/wrist and forearm are all WNL's. A 22.7% limitation is noted per the Quick DASH assessment. Due to high co-pay, pt. is requesting to be seen 1x/wk; discussed diligence with exercise program at home. Pt would benefit from skilled OT services for pain management, education on activity modification, and strengthening program to return to pain free PLOF. Frequency and Duration: The patient will be seen 1x/wk for 4 weeks Short Term Goals: IND with joint protection and activity modification IND with thermal modalities for pain mgt Decrease pain <2/10 in right elbow Retirement Goals: IND with progression of HEP Pain free with IADL's and phone use Quick DASH <10% Treatment Plan: Therapeutic Exercise Therapeutic Activity Home Exercise Program Patient Education ADL Training Ultrasound Iontophoresis MHP Soft Tissue Mobilization Kinesiotaping Electronically Signed By: Mariajose Delgado, OTR/L Please Sign and return to therapist. Thank you once again for your referral.
== END 2023-05-08 09:34 | disposition home or self-care (01) ==
LOC: HO.OT 08:57
PROVIDERS: PCP Internal Medicine; Visit Provider Internal Medicine
DX: M25.521 Pain in right elbow (principal)
CPT/HCPCS: 97110; 97140; 97165

== ENCOUNTER 2023-04-16 07:48 | Outpatient (REF) | payer MEDICARE, SELFPAY ==
--- NOTE | ~2023-04-16 | MM_ITS ---
EXAMINATION: MM SCREENING DIGITAL BREAST TOMOSYNTHESIS, BILATERAL CLINICAL INFORMATION: Screening. Asymptomatic. The lifetime risk of breast cancer based on the Tyrer-Cuzick Model is 4%. COMPARISON: Mammography: 04/11/2022, 04/07/2021, 01/22/2020 TECHNIQUE: Digital breast tomosynthesis is performed in both the craniocaudal and mediolateral oblique views along with computer-aided detection (CAD). Synthesized 2D images are generated from the tomosynthesis. FINDINGS: There are scattered areas of fibroglandular density (ACR BI-RADS breast composition Category b). There are no significant masses, abnormal calcifications, or other abnormalities. No developing density or architectural abnormality. There is chronic bilateral nipple retraction. The axilla are unremarkable. No significant changes from prior exams. MM/MM tomosynthesis screening BI IMPRESSION: No mammographic evidence of malignancy. ASSESSMENT: BI-RADS 2: Benign RECOMMENDATION: Routine annual mammography screening. This patient's information was entered into a reminder system with a target due date for their next mammogram.
--- NOTE | ~2023-04-16 | MM_ITS ---
EXAMINATION: BONE DENSITOMETRY CLINICAL INDICATION: Menopause. COMPARISON: Previous BD dated 01/15/2020 and baseline BD dated 12/13/2006. TECHNIQUE: Using a [employer] DXA System (software version: 13.1) manufactured by [employer], dual-energy x-ray absorptiometry was performed of the lumbar spine and left hip. The images are of good technical quality. Summary results are attached. FINDINGS: AP SPINE L1-L2 (excluding L3 and L4): The data of L1-L4 has been changed to exclude the L3 and L4 vertebral bodies, because degenerative changes and curvature at these levels may cause overestimation of lumbar spine density. Current: BMD 1.507 g/cm2, Z-score 3.4, T-score 2.8, normal, 4.1% decrease from previous, 11.7% decrease from baseline (<5% change is not significant). Prior: BMD 1.572 g/cm2. Baseline: BMD 1.349 g/cm2. LEFT FEMUR, NECK: Current: BMD 1.011 g/cm2, Z-score 0.8, T-score -0.2, normal. Prior: BMD 1.152 g/cm2. Baseline: BMD 1.279 g/cm2. LEFT FEMUR, TOTAL: Current: BMD 1.164 g/cm2, Z-score 2.0, T-score 1.2, normal, 4.7% decrease from previous, 15.7% decrease from baseline (<5% change is not significant). Prior: BMD 1.222 g/cm2. Baseline: BMD 1.380 g/cm2. IDENTIFIED RISK FACTORS: Menopause, thiazide. HISTORY OF FRACTURE: None listed. MEDICATIONS: Vitamin D. MM/XR DEXA axial skeleton IMPRESSION: 1. DIAGNOSIS: Normal bone density based on the lowest T-score value of -0.2 in the femoral neck applying World Health Organization criteria. 2. 10-YEAR FRACTURE RISK PREDICTION, FRAX: According to the guidelines, FRAX calculation should only be performed on patients in the osteopenia bone density category. Therefore, FRAX was not performed on this patient. 3. Treatment Recommendations: NOF guidelines recommend consideration for treatment in postmenopausal women and men age 50 and older presenting with the following: -A hip or vertebral (clinical or morphometric) fracture. -T-score less than or equal to -2.5 at the femoral neck or spine after appropriate evaluation to exclude secondary causes. -Low bone mass at the hip or spine and a 10-year fracture probability by FRAX of greater than or equal to 3% for hip fracture or greater than or equal to 20% for major osteoporotic fracture based on the [place] adapted WHO algorithm. 4. Other Recommendations: All treatment decisions require clinical judgment and consideration of individual patient factors, including patient preferences, comorbidities, previous drug use, risk factors not captured in the FRAX model (e.g. frailty, falls, vitamin D deficiency, increased bone turnover, interval significant decline in bone density) and possible under or overestimation of fracture risk by FRAX. FUTURE SCAN RECOMMENDATION: People with diagnosed cases of osteoporosis or at high risk for fracture should have regular bone mineral density tests. For patients eligible for Medicare, routine testing is allowed once every 2 years. The testing frequency can be increased to one year for patients who have rapidly progressing disease, those who are receiving or discontinuing medical therapy to restore bone mass, or have additional risk factors.
== END 2023-04-16 07:49 | disposition home or self-care (01) ==
LOC: HO.MAMMO 07:48
PROVIDERS: PCP Internal Medicine; Visit Provider Internal Medicine
DX: Z12.31 Encounter for screening mammogram for malignant neoplasm of breast (principal); Z13.820 Encounter for screening for osteoporosis; Z78.0 Asymptomatic menopausal state
CPT/HCPCS: 77063; 77067; 77080

== ENCOUNTER 2023-05-08 11:01 | Outpatient (REF) | payer MEDICARE, SELFPAY ==
[2023-05-08 13:55] LABS: MANUAL DIFF FLAG NO
[2023-05-08 14:35] LABS: Basophils Percent Auto 0.5 % (0-2); Eosinophils Absolute Auto 0.1 X10*3/uL (0.0-0.4); Eosinophils Percent Auto 1.9 % (0-4); Hematocrit 46.2 % (37.0-47.0); Hemoglobin 14.4 g/dl (12.0-16.0); Imm Gran Abs Auto 0.01 X10*3/uL (0.00-0.03); Imm Gran Pct Auto 0.1 % (0.0-0.4); Lymphocytes Absolute Auto 2.1 X10*3/uL (1.2-4.9); Lymphocytes Percent Auto 28.6 % (20-40); Mean Corpuscular HGB Conc 31.2 g/dl (31.0-35.0); Mean Corpuscular Hemoglobin 30.1 pg (27.0-33.0); Mean Corpuscular Volume 96.5 fL (80.0-98.0); Mean Platelet Volume 9.8 fL (9.4-12.3); Monocytes Absolute Auto 0.8 X10*3/uL (0.1-1.2); Monocytes Percent Auto 11.2 % (2-11); Neutrophils Absolute Auto 4.2 x10*3/uL (2.0-8.3); Neutrophils Percent Auto 57.7 % (45-73); Platelet Count 229 X10*3/uL (160-400); Red Blood Count 4.79 X10*6/uL (4.20-5.50); Red Cell Distribution Width 13.2 % (11.0-16.0); White Blood Count 7.3 X10*3/uL (4.8-10.8)
[2023-05-08 14:40] LABS: Anion Gap 13 (12-20); Blood Urea Nitrogen 14 mg/dL (9-16); Calcium 10.1 mg/dL (8.4-10.2); Carbon Dioxide 26 mmol/L (22-29); Chloride 106 mmol/L (96-108); Estimated Glomerular Filt Rate > 60; Glucose Fasting 99 mg/dL (60-99); Potassium 4.2 mmol/L (3.3-5.1); Sodium 141 mmol/L (135-145)
[2023-05-08 14:50] LABS: Vitamin D 25-OH Total 49.8 ng/mL (>30)
== END 2023-05-08 11:02 | disposition home or self-care (01) ==
LOC: HO.HMGCLDS 11:01
PROVIDERS: PCP Internal Medicine; Visit Provider Internal Medicine
DX: I65.23 Occlusion and stenosis of bilateral carotid arteries (principal); E04.1 Nontoxic single thyroid nodule; E03.9 Hypothyroidism, unspecified; Z78.0 Asymptomatic menopausal state
CPT/HCPCS: 36415; 80048; 82306; 85025

== ENCOUNTER 2023-05-16 10:24 | Outpatient (REF) | payer MEDICARE, SELFPAY ==
--- NOTE | ~2023-05-16 | US_ITS ---
EXAMINATION: US EXTRACRANIAL CAROTID DUPLEX, BILATERAL CLINICAL INFORMATION: Extreme endarterectomy with bilateral carotid stenoses. COMPARISON: 06/13/2022. TECHNIQUE: Real-time ultrasound and Doppler techniques (integrating B-mode 2-D vascular images, Doppler spectral analysis and color-flow Doppler imaging) were utilized to interrogate the extracranial carotid arteries, the vertebral arteries and proximal subclavian arteries bilaterally. The degree of stenosis is determined by criteria similar to NASCET. The study is limited secondary to patient habitus, vessel depth and tortuosity as well as inability to follow breathing instructions. FINDINGS: Right Side: 1. There is [id number] atherosclerotic plaque seen in the bifurcation/proximal ICA region. 2. The common carotid artery PSV proximally is 99 cm/s and distally 13 cm/s. 3. The proximal internal carotid artery velocities are 179 cm/s systolic and 50 cm/s diastolic. 4. The proximal external carotid artery PSV is 135 cm/s. 5. The vertebral artery shows antegrade flow. 6. The subclavian artery waveforms are normal. Left Side: 1. There is no atherosclerotic plaque seen in the bifurcation/proximal ICA region but the ICA appears narrowed although visualization was extremely difficult. 2. The common carotid artery PSV proximally is 98 cm/s and distally 95 cm/s. 3. The proximal internal carotid artery velocities are 138 cm/s systolic and 55 cm/s diastolic. These have increased when compared to the 06/13/2020 study when velocity in the proximal ICA was 61/20 cm/s. 4. The proximal external carotid artery PSV is 116 cm/s. 5. The vertebral artery shows antegrade flow. 6. The subclavian artery waveforms are normal. US/US carotid duplex BI IMPRESSION: 1. RIGHT: Moderate, hemodynamically significant stenosis of the proximal right internal carotid artery corresponding to a 50-79% stenosis by velocity criteria. 2. LEFT: Moderate, hemodynamically significant stenosis of the proximal left internal carotid artery corresponding to a 50-79% stenosis by velocity criteria. 3. Compared with the prior study, velocities in the proximal ICA have increased from 61/20 to 138/55, increasing disease category from 0-49% to 50-79%. The ICA was extremely deep and the technologist felt that imaging was inadequate. If necessary, a CT angiogram could always be performed for evaluation.
== END 2023-05-16 10:25 | disposition home or self-care (01) ==
LOC: HO.US 10:24
PROVIDERS: PCP Internal Medicine; Visit Provider Internal Medicine Cardiovascular Disease
DX: I65.23 Occlusion and stenosis of bilateral carotid arteries (principal); Z98.890 Other specified postprocedural states
CPT/HCPCS: 93880

== ENCOUNTER 2023-06-18 10:47 | Outpatient (REF) | payer MEDICARE, SELFPAY ==
[2023-06-18 14:31] LABS: Anion Gap 10 (12-20); Blood Urea Nitrogen 15 mg/dL (9-16); Calcium 9.5 mg/dL (8.4-10.2); Carbon Dioxide 25 mmol/L (22-29); Chloride 108 mmol/L (96-108); Cholesterol 148 mg/dL; Estimated Glomerular Filt Rate > 60; Glucose Random 110 mg/dL (60-115); HDL Cholesterol 44 mg/dL; LDL Cholesterol Calculated 78 mg/dl; Potassium 4.1 mmol/L (3.3-5.1); Sodium 139 mmol/L (135-145); Triglycerides 133 mg/dL
[2023-06-18 14:51] LABS: Free T4 (Free Thyroxine) 1.48 ng/dL (0.71-1.85); Thyroid Stimulating Hormone 0.01 uIU/mL (0.32-4.0)
== END 2023-06-18 10:48 | disposition home or self-care (01) ==
LOC: HO.HMGCLDS 10:47
PROVIDERS: Absent Provider Internal Medicine Cardiovascular Disease; PCP Internal Medicine; Visit Provider Internal Medicine
DX: E03.9 Hypothyroidism, unspecified (principal); E04.1 Nontoxic single thyroid nodule; I10 Essential (primary) hypertension; E78.5 Hyperlipidemia, unspecified
CPT/HCPCS: 36415; 80048; 80061; 84439; 84443

== ENCOUNTER 2023-06-19 10:12 | Outpatient (AMB) | payer MEDICARE, SELFPAY ==
--- NOTE | 2023-06-19 10:17 | A.OFFVIS_ITS ---
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 Chief Of Field Operations: Chief Of Field Operations Present Accompanied by: Daughter Allergies codeine [Codeine] Allergy (Mild, Verified 02/11/23 11:56) NAUSEA, nausa BANDAIDS Allergy (Mild, Uncoded 02/11/23 11:56) RASH Ibuprofen Allergy (Unknown, Uncoded 02/11/23 11:56) bleeding ulcer Latex tape Allergy (Unknown, Uncoded 02/11/23 11:56) Rash NSAIDS/ASA Allergy (Unknown, Uncoded 02/11/23 11:56) BLEEDING ULCER Medication List - Last Reconciled 06/19/23 by Efren Duggan MD acetaminophen (Tylenol Extra Strength) 500 mg PO Q6H PRN alirocumab (Praluent Pen) 75 mg subcut Q2W aspirin (Adult Low Dose Aspirin) 81 mg PO DAILY cholecalciferol (vitamin D3) 2,000 units PO DAILY clopidogrel 75 mg PO DAILY coenzyme Q10 (CoQ-10) 200 mg PO DAILY colesevelam 1,875 mg (3 x 625 mg) PO BID ezetimibe 10 mg PO DAILY metoprolol tartrate 25 mg PO DAILY omeprazole 40 mg PO QAM rosuvastatin 40 mg PO DAILY Tirosint (levothyroxine) 250 mcg (2 x 125 mcg) PO DAILY 90 days NS zinc acetate 25 mg PO DAILY HPI HPI Comments History of Present Illness Details Izzy comes for follow-up. Recent LDL cholesterol is increases 78 mg/dL. She has not been able to lose much weight. Does not exercise except for supine bike. She says heart rate goes above 105 beats per minute at that time does not have any symptoms of shortness of breath or chest discomfort. With exertion she is worried about knee issues with walking. Denies any orthostatic lightheadedness or syncope. Does get intermittent feeling foggy with no clear drop in blood pressure. No prolonged palpitations irregular heartbeat. Recent carotid duplex suggest progressive disease but study was somewhat technically difficult. [facility] Medical History Atherosclerosis of both carotid arteries Dyslipidemia Hypertension Hypothyroidism Osteoarthritis Right elbow pain Right elbow pain Severe aortic stenosis Thyroid nodule Surgical History History of esophagogastroduodenoscopy (EGD) History of left knee replacement Hx of breast biopsy Hx of cholecystectomy Hx of endarterectomy Hx of tonsillectomy Hx of tubal ligation S/p TAVR (transcatheter aortic valve replacement), bioprosthetic Family History Father Heart valve replaced Abdominal aortic aneurysm Mother Enlarged heart Hodgkins lymphoma Cancer Social History Housing: House Alcohol intake: current Patient Tobacco Use Status: Never used Tobacco e-Cigarette/Vaping Use: Never Used service: No Current occupational status: retired Cognitive needs: No Hearing needs: No Vision needs: No Physical Exam Vital Signs: Last Vital Signs Pulse 93 06/19/23 10:18 BP 126/82 06/19/23 10:18 BMI result Body Mass Index 45.4 Const General: cooperative, comfortable, no acute distress, alert, awake and well groomed Nutritional Appearance: obese morbidly obese Orientation/consciousness: patient oriented x3 Limitations: no limitations Neck Neck: Yes trachea midline and Yes JVD Carotids: bruit on the right Resp Effort & Inspection: normal respiratory effort Auscultation: clear to auscultation bilaterally Cardio Jugular venous distension: no JVD Rate: regular rate Rhythm: regular rhythm Heart sounds: S1 normal heart sound present, no click, no gallops and Murmur heart sound present systolic early Peripheral pulses: Peripheral pulses 2+ throughout GI Auscultation: normal bowel sounds Skin General skin exam: no rashes or lesions noted Neuro General: patient oriented x3 and no focal motor deficits Extrem General: Yes no clubbing, cyanosis or edema Office Procedures EKG Details: EKG shows normal sinus rhythm normal EKG at 93 beats per minute [id number], Complete Assessment & Plan Assessment & Plan (1) S/p TAVR (transcatheter aortic valve replacement), bioprosthetic: Code(s): Z95.3 - Presence of xenogenic heart valve Plan: Status post transcatheter aortic valve replacement which is working well clinically. Early murmur which may suggest slightly increased gradient across aortic valve. Follow-up echocardiogram 6 months time. Continue low-dose aspirin therapy for life. Importance of aspirin therapy was discussed. SBE prophylaxis as per ACC/[facility] guidelines. Continue aggressive vascular risk factor (2) Atherosclerosis of both carotid arteries: Code(s): I65.23 - Occlusion and stenosis of bilateral carotid arteries Plan: Bilateral carotid atherosclerosis with progression noted on recent duplex. Recommendation is to follow-up with the neck CTA. Would do the same to evaluate for presence of significant stenosis that may require evaluation by vascular surgery. She requires more aggressive vascular risk factor modification. Goal LDL less than 60 mg/dL. Advised to increase Praluent and follow-up lipid panel in 3 months. There was concern about liver abnormalities with so much medications. We discussed about atherosclerotic risk events horses aggressive lipid modification, more state as suggested better risk benefit ratio with reduction LDL cholesterol. Follow-up liver panel in 3 months. Continue participate in intense lifestyle modification. Aggressive weight loss. Continue current aggressive blood pressure control which is well optimized low- salt diet was discussed. Increase activity will was recommended. Follow up in the clinic in 6 months time, sooner p.r.n.. Thank you for allowing me to partake in her care Orders: Orders CT angio neck Today I65.23 - Occlusion and stenosis of bilateral carotid arteries CA echo transthoracic complete Today Z95.3 - Presence of xenogenic heart valve Coding Level of Care Code Est Pt Level 4 (68851) Diagnoses S/p TAVR (transcatheter aortic valve replacement), bioprosthetic Z95.3 Atherosclerosis of both carotid arteries I65.23 CPT Codes EKG - CPT: 89018-[id number], Complete ([id number])
[2023-06-19 10:18] VITALS: BP 126/82; PULSE 93; BMI 45.4
== END 2023-06-19 10:55 | disposition home or self-care (01) ==
PROVIDERS: PCP Internal Medicine; Referring Provider Internal Medicine; Visit Provider Internal Medicine Cardiovascular Disease
DX: Z95.3 Presence of xenogenic heart valve (principal); I65.23 Occlusion and stenosis of bilateral carotid arteries
CPT/HCPCS: 93010; 99214

== ENCOUNTER → 2023-06-19 10:12 | Outpatient (BNVA) | payer MEDICARE, SELFPAY | PROVIDERS: PCP Internal Medicine; Referring Provider Internal Medicine; Visit Provider Internal Medicine Cardiovascular Disease | DX: I65.23 Occlusion and stenosis of bilateral carotid arteries (principal); Z95.3 Presence of xenogenic heart valve | CPT/HCPCS: 93005; 99212 ==

== ENCOUNTER 2023-06-27 13:54 | Outpatient (REF) | payer MEDICARE, SELFPAY ==
--- NOTE | ~2023-06-27 | CT_ITS ---
EXAMINATION: CT ANGIOGRAM NECK CLINICAL INFORMATION: Occlusion/stenosis of the bilateral carotid arteries. COMPARISON: Carotid ultrasound from 05/16/2023. TECHNIQUE: Initial noncontrast crop scout imaging of the neck was performed. Test bolus sequences followed by intravenous administration 70 mL of Omnipaque 350. Helical imaging was performed in the axial plane from the aortic arch to the skull base. The data was processed at the computed tomography technologist's workstation for generation of MIP sequences. Angled MIPs and volume rendered reformatted images were also generated at an offline 3D workstation. Stenoses are assessed in accordance with NASCET criteria unless otherwise indicated. This CT examination was performed using dose optimization techniques as appropriate, variously including the following: *Automated exposure control. *Adjustment of mA and/or kV according to patient size (this includes techniques or standardized protocols for targeted exams where dose is matched to indication/reason for exam; i.e. extremities or head). *Use of iterative reconstruction technique. DLP: 424 mGy-cm FINDINGS: CT Neck: Changes of prior left-sided endarterectomy. The thyroid gland and remaining cervical soft tissues are within normal limits. Reversal the normal cervical lordosis centered on C4-C5. Advanced degenerative disc disease from C3-C7. Facet and uncovertebral joint arthropathy leads to osseous encroachment on the neural foramina from C3-T3. CT Upper Chest: The visualized lung apices and upper mediastinum are within normal limits. Neck CTA: Aortic Arch: Normal contour and caliber with mild calcific atherosclerotic disease. Classic 3 vessel branching pattern of the aortic arch. Great Vessel Origins: No significant stenosis of the branch origins. Right Common Carotid Artery: Normal opacification without focal stenosis or occlusion. Cervical Right Internal Carotid Artery: Retropharyngeal course. Mixed calcific and fibrofatty atherosclerotic disease of the carotid bulb and proximal internal carotid artery causes 60% stenosis of the origin of the ICA. Left Common Carotid Artery: Normal opacification without focal stenosis or occlusion. Cervical Left Internal Carotid Artery: Changes of prior endarterectomy. Retropharyngeal course. Normal opacification without focal stenosis or occlusion. Cervical Right Vertebral Artery: Co-dominant. Normal opacification without focal stenosis or occlusion. Cervical Left Vertebral Artery: Co-dominant. Normal opacification without focal stenosis or occlusion. Limited Evaluation Of The Intracranial Arteries: Moderate calcific atherosclerotic disease of the intracranial internal carotid arteries bilaterally without flow-limiting stenosis or occlusion. CT/CT angio neck IMPRESSION: 1. Changes of prior left-sided endarterectomy. 2. Atherosclerotic disease causes 60% stenosis of the origin of the right ICA. 3. Otherwise, CTA of the neck without proximal occlusion or flow-limiting stenosis.
[2023-06-27] MEDS: iohexoL 350 MG/ML 100 ML INFUS..BTL IV (14:54)
== END 2023-06-27 13:55 | disposition home or self-care (01) ==
LOC: HO.CT 13:54
PROVIDERS: PCP Internal Medicine; Visit Provider Internal Medicine Cardiovascular Disease
DX: I65.23 Occlusion and stenosis of bilateral carotid arteries (principal)
CPT/HCPCS: 70498; Q9967

== ENCOUNTER → 2023-07-23 09:52 | Outpatient (REF) | payer MEDICARE, SELFPAY ==
--- NOTE | 2023-07-23 09:54 | CA_ITS ---
Transthoracic Echocardiogram Patient (Last, First, Middle): Izzy Weller T Gender: Female Date of : 1950 Age: 72 Procedure Date: 07/23/2023 Procedure Type: Transthoracic Echocardiogram Location: OP Height: 165.1 cm Weight: 117.94 kg BSA: 2.21 m2 Heart Rate: 85 bpm BP: 115 / 80 mmHg Dividend Deposit Entry Clerk: MARISA Referring MD: Efren Duggan MD Symptoms: Z95.3 - Presence of xenogenic heart valve Study Quality: Fair ECG Rhythm: Sinus Conclusions: - The left ventricular systolic function is normal. The calculated ejection fraction is 65% by biplane method. - There is moderate septal asymmetric hypertrophy. - A bioprosthetic aortic valve is present. The prosthetic aortic valve appears to be functioning normally. Findings Left Ventricle Normal left ventricular cavity size. The left ventricular systolic function is normal. The calculated ejection fraction is 65% by biplane method. There is no evidence of regional wall motion abnormalities. Diastolic function is normal for age. There is moderate septal asymmetric hypertrophy. Right Ventricle Normal right ventricular cavity size. There is normal right ventricular systolic function. Atria Both atria are normal in size. Aortic Valve A bioprosthetic aortic valve is present. The prosthetic aortic valve appears to be functioning normally. There is no aortic valve regurgitation. Mitral Valve There is mild anterior mitral leaflet thickening. There is no mitral valve regurgitation. There is no mitral valve stenosis. Pulmonic Valve The pulmonic valve is likely normal. Tricuspid Valve There is trace tricuspid valve regurgitation. There is no evidence of pulmonary hypertension. Great Vessels The asc aorta is normal in size. Venous The inferior vena cava is normal in size and collapses less than 50% with inspiration. Pericardium/Pleural There is no evidence of pericardial effusion. Prior Study Comparison Changes noted compared to prior study dated: 06/13/2022. s/p TAVR. Measurements 2D Linear Measurements IVSd: 1.50 0.6-0.9/0.6-1.0 cm LVIDd: 2.90 3.9-5.3/4.2-5.9 cm LVIDd Index: 1.31 2.4-3.2/2.2-3.1 cm/m2 LVIDs: 1.90 2.0-3.6 cm LVPWd: 1.00 0.7-1.1 cm LA Diam: 3.10 2.7-3.8/3.0-4.0 cm LAIDs Index: 1.40 1.5-2.3 cm/m2 LV Mass: 138.40 67-162/88-224 g LV Mass Index: 62.62 43-95/49-115 g/m2 LVOT Diam: 1.90 3.0+(-)1.3 cm 2D Systolic Function EF 4C: 68.00 >55% EF 2C: 60.00 >55% EF BiP: 64.70 >55% Mitral Valve MV Pk E: 0.66 MV PK A: 0.97 MV Decel Time: 224.00 E/A: 0.70 E'Lateral: 7.62 E'Medial: 7.18 E/E' Med: 9.20 E/E' Lat: 8.70 PHT: 66.00 MVA PHT: 3.33 Decel [place]: 2.96 Aortic Valve AoV Pk Kostas: 2.27 AoV Mn Kostas: 1.65 AoV VTI: 0.44 AoV Pk Grad: 21.00 Aov Mn Grad: 12.00 SERGIO Cont.VTI: 1.25 LVOT LVOT Pk Kostas: 0.91 LVOT Mn Kostas: 0.70 LVOT VTI: 0.20 LVOT Pk Grad: 3.00 LVOT Mn Grad: 2.00 LVOT Diam: 1.90 LVOT Area: 2.84 Diastolic Function MV Pk E: 0.66 MV Pk A: 0.97 E/A: 0.70 E'Medial: 7.18 E/E' Med: 9.20 E' Laterial: 7.62 E/E' Lat: 8.70 Right Ventricle TAPSE (mm): 17.00 TVS' Kostas: 14.10 Tricuspid Valve TR Pk Kostas: 2.25 TR Pk Grad: 20.00 Great Vessels Aorta Sinus of Valsalva: 3.10 2.0-3.5 cm Ao Asc: 3.80 2.1-3.4 cm Pulmonary Valve PV Pk Kostas: 1.03 Peak PV Grad: 4.00 Updated in Other Vendor System with Status of Final Justin Teran MD electronically signed on 07/24/2023 11:42:02 AM with status of Final
== END ==
LOC: HO.CARD 09:52
PROVIDERS: PCP Internal Medicine; Visit Provider Internal Medicine Cardiovascular Disease
DX: Z95.3 Presence of xenogenic heart valve (principal)
CPT/HCPCS: 93306

== ENCOUNTER → 2023-07-23 09:54 | Outpatient (BNV) | payer MEDICARE, SELFPAY | PROVIDERS: PCP Internal Medicine; Visit Provider Internal Medicine | DX: Z95.3 Presence of xenogenic heart valve (principal); I65.23 Occlusion and stenosis of bilateral carotid arteries | CPT/HCPCS: 93306 ==

== ENCOUNTER 2023-08-14 10:43 | Outpatient (AMB) | payer MEDICARE, SELFPAY ==
--- NOTE | 2023-08-14 11:33 | A.OFFPC_ITS ---
Vital Signs 08/14/23 11:41 Height 5 ft 4 in Weight 264 lb BMI 45.3 BP 100/70 Blood Pressure Location Lt brachial Position Sitting Pulse 92 Pulse Source Pulse Oximeter Pulse Oximetry (%) 97 Oxygen Delivery Method Room Air Intake Visit Reasons: 6m follow up thyroid Intake Note: Pt is here today for her 6mo. f/u thyroid Allergies codeine [Codeine] Allergy (Mild, Verified 08/14/23 11:50) NAUSEA, nausa BANDAIDS Allergy (Mild, Uncoded 08/14/23 11:50) RASH Ibuprofen Allergy (Unknown, Uncoded 08/14/23 11:50) bleeding ulcer Latex tape Allergy (Unknown, Uncoded 08/14/23 11:50) Rash NSAIDS/ASA Allergy (Unknown, Uncoded 08/14/23 11:50) BLEEDING ULCER Medication List - Last Reconciled 08/14/23 by Radha Felix MD acetaminophen (Tylenol Extra Strength) 500 mg PO Q6H PRN alirocumab 150 mg subcut Q2W aspirin (Adult Low Dose Aspirin) 81 mg PO DAILY cholecalciferol (vitamin D3) 2,000 units PO DAILY coenzyme Q10 (CoQ-10) 200 mg PO DAILY colesevelam 1,875 mg (3 x 625 mg) PO BID ezetimibe 10 mg PO DAILY furosemide 40 mg PO DAILY metoprolol tartrate 25 mg PO DAILY omeprazole 40 mg PO QAM rosuvastatin 40 mg PO DAILY Tirosint (levothyroxine) 250 mcg (2 x 125 mcg) PO DAILY 90 days NS zinc acetate 25 mg PO DAILY Tobacco use date assessed: 08/14/23 Fall risk assessment: No Falls in past year Last assessed Fall Risk: 08/14/23 Dental Screening Dental Screen Date: 08/14/23 Did you have a dental visit in the last 12 months?: Yes Did you have a dental problem in the last 6 months where you did not have access to dental care?: Yes Was dental information given to patient?: Patient has dentist HPI 6m follow up thyroid HPI Details 72-year-old lady with hypothyroidism cur rently on Tirosint to 50 mcg taken daily, here today for follow-up. has been complaining of feeling tired still on current dose. Has some swelling around finger nail , no discharge, slightly sensitive to palpation PFSH Medical History Right elbow pain Severe aortic stenosis Right elbow pain Atherosclerosis of both carotid arteries Osteoarthritis Dyslipidemia Hypertension Thyroid nodule Hypothyroidism Surgical History S/p TAVR (transcatheter aortic valve replacement), bioprosthetic History of esophagogastroduodenoscopy (EGD) History of left knee replacement Hx of endarterectomy Hx of breast biopsy Hx of tubal ligation Hx of tonsillectomy Hx of cholecystectomy Family History Father Heart valve replaced Abdominal aortic aneurysm Mother Enlarged heart Hodgkins lymphoma Cancer Social History Housing: House Alcohol intake: current Patient Tobacco Use Status: Never used Tobacco e-Cigarette/Vaping Use: Never Used service: No Current occupational status: retired Cognitive needs: No Hearing needs: No Vision needs: No Questionnaire Thrive Questionnaire Date Thrive assessed: 02/11/23 ANISHA-7 AMB Questionnaire ANISHA-7 Date ANISHA - 7 assessed: 02/11/23 Source: Developed by Drs. Rohan Bernabe, Janet Robledo, Valentin Oliveira and colleagues, with an educational boone from [employer]. Review of Systems Const Denies fatigue, Denies fever(s), Denies frequent falls, Denies weakness and Denies weight loss Eyes Denies change in vision ENT Denies dizziness Card Denies chest pain, Denies leg edema, Denies lightheadedness, Denies palpitations and Denies orthopnea Resp Denies cough GI Denies hematochezia and Denies change in stool character Reports no additional complaints Musc Denies abnormal gait, Denies muscle weakness, Denies numbness and Denies tingling Skin/Breast Reports as per HPI, Denies breast pain, Denies breast mass and Denies rash Neuro Denies abnormal gait, Denies dizziness, Denies frequent falls, Denies numbness, Denies tingling and Denies weakness Psych Reports no additional complaints Endo Denies fatigue and Denies palpitations Jesse/Lymph Reports no additional complaints Aller/Immun Reports no additional complaints Physical exam (Primary Care) Vital Signs: Last Vital Signs Pulse 92 08/14/23 11:41 BP 100/70 08/14/23 11:41 Pulse Ox 97 08/14/23 11:41 Oxygen Delivery Method Room Air 08/14/23 11:41 BMI result Body Mass Index 45.3 BMI Assessment/Plan discussion: High BMI High, discussed plan: lifestyle, weight reduction and dietary Tobacco/Smoking Status: Tobacco use Status Tobacco use date assessed 08/14/23 08/14/23 11:39 Patient Tobacco Use Status Never used Tobacco 08/14/23 11:39 e-Cigarette/Vaping Use Never Used 08/14/23 11:39 Thrive Assessment: Date of Thrive Assessment Date Thrive assessed 02/11/23 08/14/23 11:39 Const Other: Alert oriented x3, no acute cardiorespiratory distress noted ambulatory with normal gait Orientation/consciousness: patient oriented x3 HENMT Head: Yes normocephalic Ears: hearing grossly normal bilaterally, TM's normal bilaterally and EAC's normal General nose exam: Normal external nose present and No nasal discharge present Face and sinus: Yes face symmetric Mouth: Normal oral and palatal mucosa present and moist mucous membranes Eyes General: appearance normal, both eyes and all related structures Neck Other: Thyroid gland nonpalpable Neck: Yes full ROM, Yes no lymphadenopathy and Yes supple Carotids: bruit on the right Chest Breast/axilla palpation: normal palpation of the breasts Resp Effort & Inspection: normal respiratory effort and able to speak in complete sentences Auscultation: clear to auscultation bilaterally Cardio Other: S S1-S2 present regular rate and rhythm Heart sounds: Murmur heart sound present systolic at the base GI Other: Normal bowel sounds, soft, nontender, no mass palpated Skin Other: Slight swelling and erythema noted around finger nail -right 4th digit, area is slightly tender to palpation with no active drainage Neuro General: patient oriented x3, gait normal, tone normal, moves all extremities, Normal light touch and pain sensation, no focal motor deficits and CN's II-XI intact bilaterally Extrem General: Yes full ROM, Yes no joint enlargement, Yes no clubbing, cyanosis or edema, Yes no calf tenderness and Yes normal gait Psych Appearance: grossly normal and well kempt Mental Status: mental status grossly normal Speech and movement: Normal speech and movement present Affect: normal affect Attitude: cooperative Assessment and Plan Assessment & Plan (1) Hypothyroidism: Code(s): E03.9 - Hypothyroidism, unspecified Qualifiers: Hypothyroidism type: acquired Qualified Code(s): E03.9 - Hypothyroidism, unspecified Plan: Change Tirosintdosing to 250 mcg alternating with 125 mcg dose every other day. To repeat another TSH, free T4 and thyroid peroxidase antibody in 6 weeks. Schedule telehealth after labs done for follow-up (2) Infected nailbed of finger: Code(s): L03.019 - Cellulitis of unspecified finger Qualifiers: Laterality: right Qualified Code(s): L03.011 - Cellulitis of right finger Plan: Prescription sent for mupirocin ointment 2%, apply to affected area twice a day for 7 days. Call if after 7 days no improvement of symptoms noted Orders: Orders Thyroid Stimulating Hormone 6 Weeks E03.9 - Hypothyroidism, unspecified Free T4 (Free Thyroxine) 6 Weeks E03.9 - Hypothyroidism, unspecified Thyroid Peroxidase Antibodies 6 Weeks E03.9 - Hypothyroidism, unspecified Medications: New mupirocin 2% right ring finger 1 appl topical BID 15 grams 0RF 7 days L03.019 - Cellulitis of unspecified finger Coding Level of Care Code Est Pt Level 3 (98447) Diagnoses Acquired hypothyroidism E03.9 Hypothyroidism type: acquired Infection of nail bed of finger of right hand L03.011 Laterality: right
[2023-08-14 11:41] VITALS: BP 100/70; PULSE 92; O2SAT 97; BMI 45.3
== END 2023-08-14 12:35 | disposition home or self-care (01) ==
PROVIDERS: Visit Provider Internal Medicine
DX: E03.9 Hypothyroidism, unspecified (principal); L03.011 Cellulitis of right finger
CPT/HCPCS: 99213

== ENCOUNTER 2023-09-30 10:37 | Outpatient (REF) | payer MEDICARE, SELFPAY ==
[2023-09-30 14:12] LABS: Cholesterol 115 mg/dL (<200); HDL Cholesterol 55 mg/dL (>40); LDL Cholesterol Calculated 39 mg/dL (<100); Triglycerides 106 mg/dL (<150)
[2023-09-30 14:39] LABS: Free T4 (Free Thyroxine) 1.33 ng/dL (0.71-1.85); Thyroid Stimulating Hormone 0.14 uIU/mL (0.32-4.0)
[2023-10-01 09:04] LABS: Thyroid Peroxidase Antibodies 3 IU/mL (<9)
== END 2023-09-30 10:38 | disposition home or self-care (01) ==
LOC: HO.HMGCLDS 10:37
PROVIDERS: Absent Provider Internal Medicine Cardiovascular Disease; PCP Internal Medicine; Visit Provider Internal Medicine
DX: E03.9 Hypothyroidism, unspecified (principal); E78.5 Hyperlipidemia, unspecified; I65.23 Occlusion and stenosis of bilateral carotid arteries
CPT/HCPCS: 36415; 80061; 84439; 84443; 86376

== ENCOUNTER 2023-10-07 13:50 | Outpatient (AMB) | payer MEDICARE, SELFPAY ==
--- NOTE | 2023-10-07 13:45 | MHC.PC.OV ---
Intake Visit Reasons: 6 week fu (iphone [phone]) Intake Note: pt is following for her thyroid results Allergies codeine [Codeine] Allergy (Mild, Verified 10/07/23 14:00) NAUSEA, nausa BANDAIDS Allergy (Mild, Uncoded 10/07/23 14:00) RASH Ibuprofen Allergy (Unknown, Uncoded 10/07/23 14:00) bleeding ulcer Latex tape Allergy (Unknown, Uncoded 10/07/23 14:00) Rash NSAIDS/ASA Allergy (Unknown, Uncoded 10/07/23 14:00) BLEEDING ULCER Medication List - Last Reconciled 10/07/23 by Radha Felix MD acetaminophen (Tylenol Extra Strength) 500 mg PO Q6H PRN alirocumab 150 mg subcut Q2W aspirin (Adult Low Dose Aspirin) 81 mg PO DAILY cholecalciferol (vitamin D3) 2,000 units PO DAILY coenzyme Q10 (CoQ-10) 200 mg PO DAILY colesevelam 1,875 mg (3 x 625 mg) PO BID ezetimibe 10 mg PO DAILY furosemide 40 mg PO DAILY levothyroxine (Tirosint) Takes 250 mL mcg alternating with 125 mcg every other day Do not substitute. metoprolol tartrate 25 mg PO DAILY omeprazole 40 mg PO QAM rosuvastatin 40 mg PO DAILY zinc acetate 25 mg PO DAILY Tobacco use date assessed: 10/07/23 Fall risk assessment: No Falls in past year Last assessed Fall Risk: 10/07/23 Dental Screening Dental Screen Date: 10/07/23 Did you have a dental visit in the last 12 months?: Yes Did you have a dental problem in the last 6 months where you did not have access to dental care?: No Was dental information given to patient?: Patient has dentist HPI 6 week fu (iphone [phone]) HPI Details 72-year-old lady with hypothyroidism, here for follow-up via telehealth. She is currently taking Tirosint 250 mcg alternating with 125 mcg every other day, currently feeling well on this dose. She however saw her recent labs which showed TSH still suppressed but better than last check and free T4 now within normal limits. She also had a normal fasting lipid panel, better than last check. [facility] Medical History Right elbow pain Severe aortic stenosis Right elbow pain Atherosclerosis of both carotid arteries Osteoarthritis Dyslipidemia Hypertension Thyroid nodule Hypothyroidism Surgical History S/p TAVR (transcatheter aortic valve replacement), bioprosthetic History of esophagogastroduodenoscopy (EGD) History of left knee replacement Hx of endarterectomy Hx of breast biopsy Hx of tubal ligation Hx of tonsillectomy Hx of cholecystectomy Family History Father Heart valve replaced Abdominal aortic aneurysm Mother Enlarged heart Hodgkins lymphoma Cancer Housing: House Alcohol intake: current Patient Tobacco Use Status: Never used Tobacco e-Cigarette/Vaping Use: Never Used service: No Current occupational status: retired Cognitive needs: No Hearing needs: No Vision needs: No Questionnaire Thrive Questionnaire Date Thrive assessed: 02/11/23 ANISHA-7 AMB Questionnaire ANISHA-7 Date ANISHA - 7 assessed: 02/11/23 Source: Developed by Drs. Rohan Bernabe, Janet Robledo, Valentin Oliveira and colleagues, with an educational boone from [employer]. Review of Systems Const Denies fatigue and Denies weakness Eyes Denies change in vision ENT Denies dizziness Card Denies chest pain, Denies leg edema, Denies lightheadedness, Denies palpitations and Denies orthopnea Resp Denies cough GI Denies hematochezia and Denies change in stool character Reports no additional complaints Musc Denies abnormal gait, Denies muscle weakness, Denies numbness and Denies tingling Skin/Breast Denies rash Neuro Denies abnormal gait, Denies dizziness, Denies numbness, Denies tingling and Denies weakness Psych Reports no additional complaints Endo Denies fatigue and Denies palpitations Jesse/Lymph Reports no additional complaints Aller/Immun Reports no additional complaints Physical exam (Primary Care) Tobacco/Smoking Status: Tobacco use Status Tobacco use date assessed 10/07/23 10/07/23 13:48 Patient Tobacco Use Status Never used Tobacco 10/07/23 13:45 e-Cigarette/Vaping Use Never Used 10/07/23 13:45 Thrive Assessment: Date of Thrive Assessment Date Thrive assessed 02/11/23 10/07/23 13:45 Telehealth Telehealth Location of provider rendering services: practice address Location of patient: address on file Patient Identification confirmed using: Name, : Yes Telehealth method: video Patient verbally consented to treatment: Yes Patient verbally consented to billing insurance company: Yes Patient informed of any privacy concerns related to visit: Yes Minutes spent on Phone/Video with Pt.: 15 Results Reviewed Results Reviewed: ENTERED: 09/30/23-[address]: Efren Duggan MD ORDERED: Lipid Panel, Free T4, TSH Test Result Flag Reference Site Triglyceride 106 <150 mg/dL Desirable Triglyceride: less than 150 mg/dL Borderline High Triglyceride 150-199 mg/dL High Triglyceride: 200-499 mg/dL Very High Triglyceride: greater than or equal to 5OO mg/dL Cholesterol 115 <200 mg/dL Desirable Cholesterol: less than 200 mg/dL Borderline High Cholesterol: 200-239 mg/dL High Cholesterol: greater than 239 mg/dL LDL Calculated 39 <100 mg/dL Desirable LDL: less than 100 mg/dL Near Optimal/Above Optimal LDL: 110-129 mg/dL Borderline High LDL: 130-159 mg/dL High LDL: 160-189 mg/dL Very High LDL: greater than or equal to 190 mg/dL HDL 55 >40 mg/dL Desirable HDL: greater than 40 mg/dL Note: This HDL assay may give artificially low results in patients with liver disease. Free T4 1.33 0.71-1.85 ng/dL TSH 3rd Gen. 0.14 L 0.32-4.0 uIU/mL TSH 3rd Generation ([facility]) Assessment and Plan Assessment & Plan (1) Hypothyroidism: Code(s): E03.9 - Hypothyroidism, unspecified Qualifiers: Hypothyroidism type: acquired Qualified Code(s): E03.9 - Hypothyroidism, unspecified Plan: Decreased dose of Tirosint to 125 mcg per tablet to take once a day in a.m. an hour before breakfast, and only take with glass of water. Repeat another TSH and free T4 in 6 weeks. Orders: Orders Thyroid Stimulating Hormone 6 Weeks E03.9 - Hypothyroidism, unspecified Free T4 (Free Thyroxine) 6 Weeks E03.9 - Hypothyroidism, unspecified Medications: Changed From Tirosint (levothyroxine) Dispense as written, brand medically necessary. Do not substitute. 250 mcg (2 x 125 mcg) PO DAILY 90 days 180 caps 0RF NS E03.9 - Hypothyroidism, unspecified To levothyroxine (Tirosint) Takes 250 mL mcg alternating with 125 mcg every other day Do not substitute. E03.9 - Hypothyroidism, unspecified Coding Level of Care Code Tele Est Pt Level 3 (79738) Diagnoses Acquired hypothyroidism E03.9 Hypothyroidism type: acquired
== END 2023-10-07 15:17 | disposition home or self-care (01) ==
LOC: HO.HMGC 13:50
PROVIDERS: PCP Internal Medicine; Visit Provider Internal Medicine
DX: E03.9 Hypothyroidism, unspecified (principal)
CPT/HCPCS: 99213

== ENCOUNTER 2023-12-03 09:04 | Outpatient (AMB) | payer MEDICARE, SELFPAY ==
[2023-12-03 09:04] VITALS: BP 116/78; PULSE 95; O2SAT 98; BMI 45.7
--- NOTE | 2023-12-03 09:04 | MHC.OFFWIV ---
Intake Vital Signs 12/03/23 09:04 Height 5 ft 4 in Weight 266 lb BMI 45.7 BP 116/78 Blood Pressure Location Rt brachial Position Sitting Pulse 95 Pulse Source Pulse Oximeter Pulse Oximetry (%) 98 Oxygen Delivery Method Room Air Intake Visit Reasons: EP ?Infection ears from piercing Intake Note: patient here because she believes right ear id infected, she recently got her ears pierced and thinks it may be related. she has a hx of valve replacement and doesnt want to take any chances Patient Tobacco Use Status: Never used Tobacco Allergies codeine [Codeine] Allergy (Mild, Verified 12/03/23 09:08) NAUSEA, nausa BANDAIDS Allergy (Mild, Uncoded 12/03/23 09:08) RASH Ibuprofen Allergy (Unknown, Uncoded 12/03/23 09:08) bleeding ulcer Latex tape Allergy (Unknown, Uncoded 12/03/23 09:08) Rash NSAIDS/ASA Allergy (Unknown, Uncoded 12/03/23 09:08) BLEEDING ULCER Medication List - Last Reconciled 12/03/23 by Jose F Kay MD acetaminophen (Tylenol Extra Strength) 500 mg PO Q6H PRN alirocumab 150 mg subcut Q2W aspirin (Adult Low Dose Aspirin) 81 mg PO DAILY cholecalciferol (vitamin D3) 2,000 units PO DAILY coenzyme Q10 (CoQ-10) 200 mg PO DAILY colesevelam 1,875 mg (3 x 625 mg) PO BID ezetimibe 10 mg PO DAILY furosemide 40 mg PO DAILY levothyroxine (Tirosint) Takes 250 mL mcg alternating with 125 mcg every other day Do not substitute. metoprolol tartrate 25 mg PO DAILY omeprazole 40 mg PO QAM rosuvastatin 40 mg PO DAILY zinc acetate 25 mg PO DAILY Do you need a note to return to daycare/school/sports/work: No HPI EP ?Infection ears from piercing HPI Details Patient is a 73-year-old female who had ear piercing 2 weeks ago Noticed puffiness of her right ear 2 days ago, she has been cleaning with saline Patient says that she was told to start using hydrogen peroxide after 2 weeks and she has started using it by dipping a Q-tip and cleaning around the piercing On examination her right ear is puffy compared to left 1, I did not see any active discharge There is no redness I am treating her with Augmentin for 5 days, patient need to be re-evaluated after finishing antibiotic If she continued to have worsening of puffiness or discharge starts patient is to take the piercing out. [facility] Medical History Right elbow pain Severe aortic stenosis Right elbow pain Atherosclerosis of both carotid arteries Osteoarthritis Dyslipidemia Hypertension Thyroid nodule Hypothyroidism Surgical History S/p TAVR (transcatheter aortic valve replacement), bioprosthetic History of esophagogastroduodenoscopy (EGD) History of left knee replacement Hx of endarterectomy Hx of breast biopsy Hx of tubal ligation Hx of tonsillectomy Hx of cholecystectomy Family History Father Heart valve replaced Abdominal aortic aneurysm Mother Enlarged heart Hodgkins lymphoma Cancer Social History Housing: House Alcohol intake: current Patient Tobacco Use Status: Never used Tobacco e-Cigarette/Vaping Use: Never Used service: No Current occupational status: retired Cognitive needs: No Hearing needs: No Vision needs: No Review of Systems Const All systems reviewed & are unremarkable except as noted in HPI and below Physical Exam Vital Signs: Last Vital Signs Pulse 95 12/03/23 09:04 BP 116/78 12/03/23 09:04 Pulse Ox 98 12/03/23 09:04 Oxygen Delivery Method Room Air 12/03/23 09:04 BMI result Body Mass Index 45.7 Const General: no acute distress Orientation/consciousness: patient oriented x3 Eyes General: appearance normal, both eyes and all related structures Resp Effort & Inspection: normal respiratory effort and able to speak in complete sentences Auscultation: clear to auscultation bilaterally Cardio Other: S1 S2 Skin Other: Right ear but fewer than left 1, no active discharge noticed no erythema noticed Neuro General: patient oriented x3 Psych Mental Status: mental status grossly normal Assessment & Plan Assessment & Plan (1) Acute ear infection: Code(s): H66.90 - Otitis media, unspecified, unspecified ear Qualifiers: Laterality: right Qualified Code(s): H66.91 - Otitis media, unspecified, right ear Plan Patient is a 73-year-old female who had ear piercing 2 weeks ago Noticed puffiness of her right ear 2 days ago, she has been cleaning with saline Patient says that she was told to start using hydrogen peroxide after 2 weeks and she has started using it by dipping a Q-tip and cleaning around the piercing On examination her right ear is puffy compared to left 1, I did not see any active discharge There is no redness I am treating her with Augmentin for 5 days, patient need to be re-evaluated after finishing antibiotic If she continued to have worsening of puffiness or discharge starts patient is to take the piercing out. Medications: New amoxicillin-pot clavulanate 875-125 mg 1 tab PO BID 5 days 10 tabs 0RF Coding Level of Care Code Est Pt Level 3 (78495) Diagnoses Acute infection of right ear H66.91 Laterality: right
== END 2023-12-03 10:31 | disposition home or self-care (01) ==
PROVIDERS: PCP Internal Medicine; Visit Provider Internal Medicine
DX: H66.91 Otitis media, unspecified, right ear (principal)
CPT/HCPCS: 99213

== ENCOUNTER 2023-12-09 08:38 | Outpatient (REF) | payer MEDICARE, SELFPAY ==
[2023-12-09 12:28] LABS: Anion Gap 12 (12-20); Blood Urea Nitrogen 15 mg/dL (9-16); Calcium 9.6 mg/dL (8.4-10.2); Carbon Dioxide 27 mmol/L (22-29); Chloride 106 mmol/L (96-108); Estimated Glomerular Filt Rate > 60; Glucose Random 116 mg/dL (60-115); Sodium 141 mmol/L (135-145)
[2023-12-09 13:11] LABS: Free T4 (Free Thyroxine) 0.84 ng/dL (0.71-1.85); Thyroid Stimulating Hormone 30.58 uIU/mL (0.32-4.0)
== END 2023-12-09 08:39 | disposition home or self-care (01) ==
LOC: HO.HMGCLDS 08:38
PROVIDERS: PCP Internal Medicine; Referring Provider Internal Medicine Cardiovascular Disease; Visit Provider Internal Medicine
DX: I10 Essential (primary) hypertension (principal); E03.9 Hypothyroidism, unspecified
CPT/HCPCS: 36415; 80048; 84439; 84443

== ENCOUNTER 2023-12-10 14:38 | Outpatient (AMB) | payer MEDICARE, SELFPAY ==
--- NOTE | 2023-12-10 14:33 | A.OFFPC_ITS ---
Intake Visit Reasons: [facility] week [phone] Intake Note: Pt is having a telehealth visit 6 wks f/u to discuss lab results thyroid Allergies codeine [Codeine] Allergy (Mild, Verified 12/10/23 16:34) NAUSEA, nausa BANDAIDS Allergy (Mild, Uncoded 12/10/23 16:34) RASH Ibuprofen Allergy (Unknown, Uncoded 12/10/23 16:34) bleeding ulcer Latex tape Allergy (Unknown, Uncoded 12/10/23 16:34) Rash NSAIDS/ASA Allergy (Unknown, Uncoded 12/10/23 16:34) BLEEDING ULCER Medication List - Last Reconciled 12/10/23 by Radha Felix MD acetaminophen (Tylenol Extra Strength) 500 mg PO Q6H PRN alirocumab 150 mg subcut Q2W amoxicillin-pot clavulanate 875-125 mg 1 tab PO BID 5 days aspirin (Adult Low Dose Aspirin) 81 mg PO DAILY cholecalciferol (vitamin D3) 2,000 units PO DAILY coenzyme Q10 (CoQ-10) 200 mg PO DAILY colesevelam 1,875 mg (3 x 625 mg) PO BID ezetimibe 10 mg PO DAILY furosemide 40 mg PO DAILY levothyroxine (Tirosint) 125 mcg orally metoprolol tartrate 25 mg PO DAILY omeprazole 40 mg PO QAM rosuvastatin 40 mg PO DAILY zinc acetate 25 mg PO DAILY Tobacco use date assessed: 12/10/23 Fall risk assessment: No Falls in past year Last assessed Fall Risk: 12/10/23 Dental Screening Dental Screen Date: 12/10/23 Did you have a dental visit in the last 12 months?: Yes Did you have a dental problem in the last 6 months where you did not have access to dental care?: Yes Was dental information given to patient?: Patient has dentist H[phone] HPI Details 73 year old Lady with history [place] C ity stenosis status post TAVR year ago, dyslipidemia, hypertension, osteoarthritis here today for follow-up on her hypothyroidism. She is currently taking Tirosint 125 mcg capsules once a day. States that she feels fine on current dose, denies any fatigue, no swelling in lower extremities, no change in bowel movements. Latest TSH was elevated but free T4 was in the low normal.range. [facility] Medical History Right elbow pain Severe aortic stenosis Right elbow pain Atherosclerosis of both carotid arteries Osteoarthritis Dyslipidemia Hypertension Thyroid nodule Hypothyroidism Surgical History S/p TAVR (transcatheter aortic valve replacement), bioprosthetic History of esophagogastroduodenoscopy (EGD) History of left knee replacement Hx of endarterectomy Hx of breast biopsy Hx of tubal ligation Hx of tonsillectomy Hx of cholecystectomy Family History Father Heart valve replaced Abdominal aortic aneurysm Mother Enlarged heart Hodgkins lymphoma Cancer Social History Housing: House Alcohol intake: current Patient Tobacco Use Status: Never used Tobacco e-Cigarette/Vaping Use: Never Used service: No Current occupational status: retired Cognitive needs: No Hearing needs: No Vision needs: No Questionnaire PHQ-9 Over the last 2 weeks, how often have you been bothered by any of the following problems? 1. Little interest or pleasure in doing things: not at all 2. Feeling down, depressed, or hopeless: not at all 3. Trouble falling or staying asleep, or sleeping too much: not at all 4. Feeling tired or having little energy: not at all 5. Poor appetite or overeating: not at all 6. Feeling bad about yourself - or that you are a failure or have let yourself or your family down: not at all 7. Trouble concentrating on things, such as reading the newspaper or watching television: not at all 8. Moving or speaking so slowly that other people could have noticed. Or the opposite - being so fidgety or restless that you have been moving around a lot more than usual: not at all 9. Thoughts that you would be better off or of hurting yourself in some way: not at all Total score: 0 Depression Screening Interpretation: Negative Depression Screening Done: Yes 30334 - PHQ-9 Billing: Yes Source: Developed by Drs. Rohan Bernabe, B.WValentin Gonzalez and colleagues, with an educational boone from [employer] Thrive Questionnaire Date Thrive assessed: 12/10/23 I am a: Patient What is your living situation today?: I have a steady place to live Within the past 12 months, did the food you bought not last and you didn't have the money to get more?: Never true Within the past 12 months, did you worry whether your food would run out before you got money to buy more?: Never true Do you have trouble paying for medicines?: No Do you have trouble getting transportation to medical appointments?: No Do you have trouble paying your heating and electricity bill?: No Do you have trouble taking care of your child, family member or friend?: No Do you have trouble with day-to-day activities such as bathing, preparing meals, shopping, managing finances, etc.?: No Are you currently unemployed and looking for a job?: No Are you interested in more education?: No THRIVE Score: 0 AUDIT C Alcohol Use Questionnaire (AUDIT-C) 1. How often do you have a drink containing alcohol?: Never Total Score: 0 ANISHA-7 AMB Questionnaire ANISHA-7 Date ANISHA - 7 assessed: 12/10/23 Feeling nervous, anxious, or on edge: 0 = Not at all Not being able to stop or control worryin = Not at all Worrying too much about different things: 0 = Not at all Trouble relaxin = Not at all Being so restless that it is hard to sit still: 0 = Not at all Becoming easily annoyed or irritable: 0 = Not at all Feeling afraid as if something awful might happen: 0 = Not at all Total ANISHA-7 score (0-4 normal; 5-9 mild; 10-14 moderate; 15-21 severe): 0 Source: Developed by Drs. Rohan Bernabe, Valentin Li and colleagues, with an educational boone from [employer] ANISHA-7 Assessment Billing ANISHA-7 Assessment Tool: ANISHA-7 Assessment 08497 Review of Systems Const Denies fatigue and Denies weakness Eyes Denies change in vision ENT Denies dizziness Card Denies chest pain, Denies leg edema, Denies lightheadedness, Denies palpitations and Denies orthopnea Resp Denies cough GI Denies change in stool character Reports no additional complaints Musc Denies abnormal gait, Denies muscle weakness, Denies numbness and Denies tingling Skin/Breast Denies dry skin and Denies rash Neuro Denies abnormal gait, Denies dizziness, Denies numbness, Denies tingling and Denies weakness Psych Reports no additional complaints Endo Denies fatigue and Denies palpitations Jesse/Lymph Reports no additional complaints Aller/Immun Reports no additional complaints Physical exam (Primary Care) Tobacco/Smoking Status: Tobacco use Status Tobacco use date assessed 12/10/23 12/10/23 14:38 Patient Tobacco Use Status Never used Tobacco 12/10/23 14:38 e-Cigarette/Vaping Use Never Used 12/10/23 14:38 PHQ-9: PHQ-9 Score PHQ-9: Total score 0 12/10/23 15:19 Depression Screening Interpretation: Negative Thrive Assessment: Date of Thrive Assessment Date Thrive assessed 12/10/23 12/10/23 14:38 Telehealth Telehealth Location of provider rendering services: practice address Location of patient: address on file Patient Identification confirmed using: Name, : Yes Telehealth method: video Patient verbally consented to treatment: Yes Patient verbally consented to billing insurance company: Yes Patient informed of any privacy concerns related to visit: Yes Minutes spent on Phone/Video with Pt.: 15 Results Reviewed Results Reviewed: ENTERED: 12/09/[address]: Efren Duggan MD ORDERED: BMP, Free T4, TSH Test Result Flag Reference Sodium 141 135-145 mmol/L Potassium 4.0 3.3-5.1 mmol/L CL 106 96-108 mmol/L CO2 27 22-29 mmol/L Gap 12 12-20 BUN 15 9-16 mg/dL Creat 0.80 0.5-1.4 mg/dL EGFR > 60 NOTE: For -Burm[place] individuals, multiply the result by 1.210. Chronic Kidney Disease: Estimated GFR < 60 mL/min/1.73m2 Severe Kidney Disease: Estimated GFR < 15 mL/min/1.73m2 Glucose, Random 116 H 60-115 mg/dL CA 9.6 8.4-10.2 mg/dL Free T4 0.84 0.71-1.85 ng/dL TSH 3rd Gen. 30.58 H 0.32-4.0 uIU/mL Note: A sustained TSH level above 2.5 uIU/mL may warrant further investigation. TSH 3rd Generation ([facility]) Assessment and Plan Assessment & Plan (1) Hypothyroidism: Code(s): E03.9 - Hypothyroidism, unspecified Qualifiers: Hypothyroidism type: acquired Qualified Code(s): E03.9 - Hypothyroidism, unspecified Plan: Discussed results of recent fasting labs with patient. Has been feeling well on present dose of levothyroxine at 125 mcg daily. Will repeat another TSH and free T4 in 6 weeks and see her back for a telehealth visit after labs done Orders: Orders Free T4 (Free Thyroxine) 6 Weeks E03.9 - Hypothyroidism, unspecified Thyroid Stimulating Hormone 6 Weeks E03.9 - Hypothyroidism, unspecified Coding Level of Care Code Tele Est Pt Level 3 (89000) Diagnoses Acquired hypothyroidism E03.9 Hypothyroidism type: acquired Additional Codes ANISHA-7 Assessment Billing - ANISHA-7 Assessment Tool: ANISHA-7 Assessment 64735 ([id number])
== END 2023-12-10 17:25 | disposition home or self-care (01) ==
LOC: HO.HMGC 14:38
PROVIDERS: PCP Internal Medicine; Visit Provider Internal Medicine
DX: E03.9 Hypothyroidism, unspecified (principal)
CPT/HCPCS: 99213

== ENCOUNTER 2023-12-23 10:44 | Outpatient (AMB) | payer MEDICARE, SELFPAY ==
[2023-12-23 10:47] VITALS: BP 130/68; PULSE 85; BMI 44.6
--- NOTE | 2023-12-23 10:47 | MHC.OFFVIS ---
Intake Vital Signs 12/23/23 10:47 Height 5 ft 4 in Weight 260 lb 2.327 oz BMI 44.6 BP 130/68 Blood Pressure Location Lt brachial Position Sitting Pulse 85 Intake Visit Reasons: 6 mth s/p echo Intake Note: 6 month follow-up with echo feeling good Glass Blower Helper Required: No Allergies codeine [Codeine] Allergy (Mild, Verified 12/10/23 16:34) NAUSEA, nausa BANDAIDS Allergy (Mild, Uncoded 12/10/23 16:34) RASH Ibuprofen Allergy (Unknown, Uncoded 12/10/23 16:34) bleeding ulcer Latex tape Allergy (Unknown, Uncoded 12/10/23 16:34) Rash NSAIDS/ASA Allergy (Unknown, Uncoded 12/10/23 16:34) BLEEDING ULCER Medication List - Last Reconciled 12/23/23 by Efren Duggan MD acetaminophen (Tylenol Extra Strength) 500 mg PO Q6H PRN alirocumab (Praluent Pen) 150 mg subcut Q2W aspirin (Adult Low Dose Aspirin) 81 mg PO DAILY cholecalciferol (vitamin D3) 2,000 units PO DAILY coenzyme Q10 (CoQ-10) 200 mg PO DAILY colesevelam 1,875 mg (3 x 625 mg) PO BID ezetimibe 10 mg PO DAILY furosemide 40 mg PO DAILY levothyroxine (Tirosint) 125 mcg orally metoprolol tartrate 25 mg PO DAILY omeprazole 40 mg PO QAM rosuvastatin 40 mg PO DAILY zinc acetate 25 mg PO DAILY HPI HPI Comments History of Present Illness Details Izzy comes for follow-up. She has been doing very well from cardiac perspective. She has recently started exercising gently and is doing well. No exertional chest pain or shortness of breath. Recent echocardiogram done at [facility], 1 year post TAVR follow-up showed normally functioning aortic valve with mean gradient of 10 mm Hg with normal LV systolic function. She denies any shortness of breath, chest pain. Neck CTA showed 60% stenosis in the right internal carotid artery. Her LDL was 39 mg/dL. She denies any prolonged palpitation irregular heartbeat. Blood pressure is generally been well controlled. [facility] Medical History Right elbow pain Severe aortic stenosis Right elbow pain Atherosclerosis of both carotid arteries Osteoarthritis Dyslipidemia Hypertension Thyroid nodule Hypothyroidism Surgical History S/p TAVR (transcatheter aortic valve replacement), bioprosthetic History of esophagogastroduodenoscopy (EGD) History of left knee replacement Hx of endarterectomy Hx of breast biopsy Hx of tubal ligation Hx of tonsillectomy Hx of cholecystectomy Family History Father Heart valve replaced Abdominal aortic aneurysm Mother Enlarged heart Hodgkins lymphoma Cancer Social History Housing: House Alcohol intake: current Patient Tobacco Use Status: Never used Tobacco e-Cigarette/Vaping Use: Never Used service: No Current occupational status: retired Cognitive needs: No Hearing needs: No Vision needs: No Review of Systems Const Denies chills, Denies fatigue, Denies fever(s), Denies frequent falls, Denies weakness, Denies weight gain and Denies weight loss ENT Denies dizziness Card Denies chest pain, Denies leg edema, Denies lightheadedness, Denies palpitations, Denies dyspnea, Denies dyspnea on exertion, Denies orthopnea and Denies other (loss of consciousness) Resp Denies cough, Denies dyspnea and Denies dyspnea on exertion GI Denies hematochezia and Denies change in stool character Musc Denies abnormal gait, Denies muscle weakness, Denies numbness, Denies radiating pain into limb and Denies tingling Neuro Denies abnormal gait, Denies dizziness, Denies frequent falls, Denies numbness, Denies tingling and Denies weakness Endo Denies fatigue and Denies palpitations Physical Exam Vital Signs: Last Vital Signs Pulse 85 12/23/23 10:47 BP 130/68 12/23/23 10:47 BMI result Body Mass Index 44.6 Const General: cooperative, comfortable, no acute distress, alert, awake and well groomed Nutritional Appearance: obese morbidly obese Orientation/consciousness: patient oriented x3 Limitations: no limitations Neck Neck: Yes trachea midline and Yes JVD Carotids: bruit on the right Resp Effort & Inspection: normal respiratory effort Auscultation: clear to auscultation bilaterally Cardio Jugular venous distension: no JVD Rate: regular rate Rhythm: regular rhythm Heart sounds: S1 normal heart sound present, no click, no gallops and Murmur heart sound present systolic early Peripheral pulses: Peripheral pulses 2+ throughout GI Auscultation: normal bowel sounds Skin General skin exam: no rashes or lesions noted Neuro General: patient oriented x3 and no focal motor deficits Extrem General: Yes no clubbing, cyanosis or edema Assessment & Plan Assessment & Plan (1) S/p TAVR (transcatheter aortic valve replacement), bioprosthetic: Code(s): Z95.3 - Presence of xenogenic heart valve Plan: Status post aortic valve replacement with bioprosthetic aortic valve for severe aortic stenosis with symptoms. Doing well from that perspective. Mean gradient of 10 mm Hg which is within normal limits. Follow-up echocardiogram in 1 year's time. Continue low-dose aspirin therapy. Continue aggressive vascular risk factor modification, see below. SBE prophylaxis as per ACC/aha guidelines. (2) Atherosclerosis of both carotid arteries: Code(s): I65.23 - Occlusion and stenosis of bilateral carotid arteries Plan: Bilateral carotid artery disease status post left carotid endarterectomy. Last neck CTA showed 60% stenosis in the right internal carotid artery. Continue aggressive medical therapy. LDL is extremely well optimized on current therapy. Continue low-dose aspirin therapy for life. Continue aggressive blood pressure control which is currently well optimized. Target goal blood pressure less than 130/84. Encouraged to continue to participate in heart healthy lifestyle with aggressive weight loss program as regular physical activity. Follow up in the clinic in 1 year's time, sooner p.r.n.. Thank you for allowing me to partake in her care Coding Level of Care Code Est Pt Level 4 (02076) Diagnoses S/p TAVR (transcatheter aortic valve replacement), bioprosthetic Z95.3 Atherosclerosis of both carotid arteries I65.23
== END 2023-12-23 11:07 | disposition home or self-care (01) ==
PROVIDERS: PCP Internal Medicine; Visit Provider Internal Medicine Cardiovascular Disease
DX: Z95.3 Presence of xenogenic heart valve (principal); I65.23 Occlusion and stenosis of bilateral carotid arteries
CPT/HCPCS: 99214

== ENCOUNTER → 2023-12-23 10:44 | Outpatient (BNVA) | payer MEDICARE, SELFPAY | PROVIDERS: PCP Internal Medicine; Visit Provider Internal Medicine Cardiovascular Disease | DX: I65.23 Occlusion and stenosis of bilateral carotid arteries (principal); Z95.3 Presence of xenogenic heart valve | CPT/HCPCS: 99212 ==

== ENCOUNTER 2024-02-11 10:35 | Outpatient (REF) | payer MEDICARE, SELFPAY ==
[2024-02-11 13:52] LABS: Cholesterol 138 mg/dL (<200); HDL Cholesterol 56 mg/dL (>40); LDL Cholesterol Calculated 57 mg/dL (<100); Triglycerides 126 mg/dL (<150)
[2024-02-11 13:55] LABS: Free T4 (Free Thyroxine) 0.88 ng/dL (0.71-1.85); Thyroid Stimulating Hormone 25.27 uIU/mL (0.32-4.0)
== END 2024-02-11 10:36 | disposition home or self-care (01) ==
LOC: HO.HMGCLDS 10:35
PROVIDERS: PCP Internal Medicine; Referring Provider Internal Medicine Cardiovascular Disease; Visit Provider Internal Medicine
DX: E03.9 Hypothyroidism, unspecified (principal); I25.10 Atherosclerotic heart disease of native coronary artery without angina pectoris; I10 Essential (primary) hypertension; Z95.3 Presence of xenogenic heart valve
CPT/HCPCS: 36415; 80061; 84439; 84443

== ENCOUNTER 2024-02-12 10:59 | Outpatient (AMB) | payer MEDICARE, SELFPAY ==
--- NOTE | 2024-02-12 11:15 | A.OFFPC_ITS ---
Vital Signs 02/12/24 11:19 Height 5 ft 4 in Weight 273 lb BMI 46.9 BP 124/68 Blood Pressure Location Rt brachial Position Sitting Pulse 80 Pulse Source Pulse Oximeter Pulse Oximetry (%) 98 Oxygen Delivery Method Room Air Intake Visit Reasons: PE Intake Note: Pt is here today forher PE: last mammogram 04/16/23, bone density scan 04/16/23, colonoscopy 09/14/11 Allergies codeine [Codeine] Allergy (Mild, Verified 02/12/24 14:11) NAUSEA, nausa BANDAIDS Allergy (Mild, Uncoded 02/12/24 14:11) RASH Ibuprofen Allergy (Unknown, Uncoded 02/12/24 14:11) bleeding ulcer Latex tape Allergy (Unknown, Uncoded 02/12/24 14:11) Rash NSAIDS/ASA Allergy (Unknown, Uncoded 02/12/24 14:11) BLEEDING ULCER Medication List - Last Reconciled 02/12/24 by Radha Felix MD acetaminophen (Tylenol Extra Strength) 500 mg PO Q6H PRN alirocumab (Praluent Pen) 150 mg subcut Q2W aspirin (Adult Low Dose Aspirin) 81 mg PO DAILY cholecalciferol (vitamin D3) 2,000 units PO DAILY coenzyme Q10 (CoQ-10) 200 mg PO DAILY colesevelam 1,875 mg (3 x 625 mg) PO BID ezetimibe 10 mg PO DAILY furosemide 40 mg PO DAILY levothyroxine (Tirosint) 137 mcg PO DAILY metoprolol tartrate 25 mg PO DAILY omeprazole 40 mg PO QAM rosuvastatin 40 mg PO DAILY zinc acetate 25 mg PO DAILY Tobacco use date assessed: 02/12/24 Fall risk assessment: No Falls in past year Last assessed Fall Risk: 02/12/24 Dental Screening Dental Screen Date: 12/18/23 Did you have a dental visit in the last 12 months?: Yes Did you have a dental problem in the last 6 months where you did not have access to dental care?: Yes Was dental information given to patient?: Patient has dentist HPI PE HPI Details 73-year-old lady here today for her phys ical exam. She is up-to-date with her screening mammogram , last done 04/16/23; a bone density scan 04/16/23 showed normal bone density in lumbar spine and left hip and femur; up-to-date with her colon cancer screening, had a Cologuard test done in 2021 came back with negative results, due again in 2024. She is up-to-date with all her vaccines She has hypothyroidism, with latest TSH markedly elevated and free T4 at 0.88. Patient has been complaining of feeling more tired than usual and noticing that her skin is getting more dry and hair is starting to thin out a lot. She is currently taking Tirosint 125 mcg daily. She has history of severe aortic stenosis with symptoms, s/p aortic valve replacement with bioprosthetic aortic valve, doing well she is currently being followed by cardiology, with a follow-up echocardiogram to be done in 1 year's time. Continued on low-dose aspirin therapy. Needs SBE prophylaxis as per ACC/aha guidelines. She has also bilateral carotid artery stenosis, s/p left carotid endarterectomy. Last neck CTA showed 60% stenosis in the right internal carotid artery. Continued with aggressive medical therapy. Recent labs showed LDL cholesterol and blood pressure is at goal on current therapy. Encouraged to continue to participate in heart healthy lifestyle with aggressive weight loss program as regular physical activity. [facility] Medical History Annual visit for general adult medical examination with abnormal findings Right elbow pain Severe aortic stenosis Right elbow pain Atherosclerosis of both carotid arteries Osteoarthritis Dyslipidemia Hypertension Thyroid nodule Hypothyroidism Surgical History S/p TAVR (transcatheter aortic valve replacement), bioprosthetic History of esophagogastroduodenoscopy (EGD) History of left knee replacement Hx of endarterectomy Hx of breast biopsy Hx of tubal ligation Hx of tonsillectomy Hx of cholecystectomy Family History Father Heart valve replaced Abdominal aortic aneurysm Mother Enlarged heart Hodgkins lymphoma Cancer Social History Housing: House Alcohol intake: current Patient Tobacco Use Status: Never used Tobacco e-Cigarette/Vaping Use: Never Used service: No Current occupational status: retired Cognitive needs: No Hearing needs: No Vision needs: No Questionnaire PHQ-9 Over the last 2 weeks, how often have you been bothered by any of the following problems? 1. Little interest or pleasure in doing things: not at all 2. Feeling down, depressed, or hopeless: not at all 3. Trouble falling or staying asleep, or sleeping too much: not at all 4. Feeling tired or having little energy: not at all 5. Poor appetite or overeating: several days 6. Feeling bad about yourself - or that you are a failure or have let yourself or your family down: not at all 7. Trouble concentrating on things, such as reading the newspaper or watching television: not at all 8. Moving or speaking so slowly that other people could have noticed. Or the opposite - being so fidgety or restless that you have been moving around a lot more than usual: not at all 9. Thoughts that you would be better off or of hurting yourself in some way: not at all Total score: 1 Depression Screening Interpretation: Negative Depression Screening Done: Yes 72136 - PHQ-9 Billing: Yes Source: Developed by Drs. Rohan Bernabe, Janet Robledo, Valentni Oliveira and colleagues, with an educational boone from [employer]. Thrive Questionnaire Date Thrive assessed: 02/12/24 I am a: Patient What is your living situation today?: I have a steady place to live Within the past 12 months, did the food you bought not last and you didn't have the money to get more?: Never true Within the past 12 months, did you worry whether your food would run out before you got money to buy more?: Never true Do you have trouble paying for medicines?: No Do you have trouble getting transportation to medical appointments?: No Do you have trouble paying your heating and electricity bill?: No Do you have trouble taking care of your child, family member or friend?: No Do you have trouble with day-to-day activities such as bathing, preparing meals, shopping, managing finances, etc.?: No Are you currently unemployed and looking for a job?: No Are you interested in more education?: No THRIVE Score: 0 AUDIT C Alcohol Use Questionnaire (AUDIT-C) 1. How often do you have a drink containing alcohol?: Monthly or less 2. How many drinks containing alcohol do you have on a typical day when you are drinking?: 1 or 2 3. How often do you have six or more drinks on one occasion?: Never Total Score: 1 ANISHA-7 AMB Questionnaire ANISHA-7 Date ANISHA - 7 assessed: 02/12/24 Feeling nervous, anxious, or on edge: 0 = Not at all Not being able to stop or control worryin = Not at all Worrying too much about different things: 0 = Not at all Trouble relaxin = Not at all Being so restless that it is hard to sit still: 0 = Not at all Becoming easily annoyed or irritable: 0 = Not at all Feeling afraid as if something awful might happen: 0 = Not at all Total ANISHA-7 score (0-4 normal; 5-9 mild; 10-14 moderate; 15-21 severe): 0 Source: Developed by Drs. Rohan Bernabe, Janet Robledo, Valentin Oliveira and colleagues, with an educational boone from [employer]. ANISHA-7 Assessment Billing ANISHA-7 Assessment Tool: ANISHA-7 Assessment 07519 Review of Systems Const Reports fatigue, Denies headache(s), Denies weakness and Reports weight gain Eyes Denies change in vision ENT Denies change in voice, Denies dizziness, Denies dry mouth, Denies headache(s), Denies hoarseness, Denies nasal congestion, Denies disequilibrium, Denies post nasal drip, Denies tinnitus and Denies sore throat Card Denies chest pain, Denies leg edema, Denies lightheadedness, Denies palpitations and Denies orthopnea Resp Denies cough GI Denies abdominal pain, Denies melena, Denies hematochezia, Denies change in bowel habits, Denies change in stool character and Denies heartburn Reports no additional complaints Musc Denies abnormal gait, Denies muscle weakness, Denies numbness and Denies tingling Skin/Breast Reports as per HPI, Denies breast pain, Denies breast mass and Denies rash Neuro Denies abnormal gait, Denies dizziness, Denies headache(s), Denies numbness, Denies tingling, Denies disequilibrium and Denies weakness Psych Reports no additional complaints Endo Reports fatigue and Denies palpitations Jesse/Lymph Reports no additional complaints Aller/Immun Reports no additional complaints Physical exam (Primary Care) Vital Signs: Last Vital Signs Pulse 80 02/12/24 11:19 BP 124/68 02/12/24 11:19 Pulse Ox 98 02/12/24 11:19 Oxygen Delivery Method Room Air 02/12/24 11:19 BMI result Body Mass Index 46.9 BMI Assessment/Plan discussion: High BMI High, discussed plan: lifestyle, weight reduction and dietary Tobacco/Smoking Status: Tobacco use Status Tobacco use date assessed 02/12/24 02/12/24 11:22 Patient Tobacco Use Status Never used Tobacco 02/12/24 11:22 e-Cigarette/Vaping Use Never Used 02/12/24 11:22 PHQ-9: PHQ-9 Score PHQ-9: Total score 1 02/12/24 14:14 Depression Screening Interpretation: Negative Thrive Assessment: Date of Thrive Assessment Date Thrive assessed 02/12/24 02/12/24 11:22 Const Other: Alert oriented x3, no acute cardiorespiratory distress noted ambulatory with normal gait Orientation/consciousness: patient oriented x3 HENMT Head: Yes normocephalic Ears: hearing grossly normal bilaterally, TM's normal bilaterally and EAC's normal General nose exam: Normal external nose present and No nasal discharge present Face and sinus: Yes face symmetric Mouth: Normal oral and palatal mucosa present and moist mucous membranes Eyes General: appearance normal, both eyes and all related structures Neck Other: Thyroid gland nonpalpable Neck: Yes full ROM, Yes no lymphadenopathy and Yes supple Carotids: bruit on the right Chest Breast/axilla palpation: normal palpation of the breasts Resp Effort & Inspection: normal respiratory effort and able to speak in complete sentences Auscultation: clear to auscultation bilaterally Cardio Other: S S1-S2 present regular rate and rhythm Heart sounds: Murmur heart sound present systolic at the base GI Other: Normal bowel sounds, soft, nontender, no mass palpated General: Yes no CVA tenderness Back/Spine/Pelvis Back: no CVA tenderness and No back tenderness Skin General skin exam: no rashes or lesions noted and dry skin Neuro General: patient oriented x3, gait normal, tone normal, moves all extremities, Normal light touch and pain sensation, no focal motor deficits and CN's II-XI intact bilaterally Extrem General: Yes full ROM, Yes no joint enlargement, Yes no clubbing, cyanosis or edema, Yes no calf tenderness and Yes normal gait Psych Appearance: grossly normal and well kempt Mental Status: mental status grossly normal Speech and movement: Normal speech and movement present Affect: normal affect Attitude: cooperative Results Reviewed Results Reviewed: Name: Izzy Weller Age/Sex: 73/F : 1950 Unit#: [id number] Attend Dr: Radha Felix MD Re02/11/24 Status: DEP [facility] Dis[facility]: SPEC : [id number] ELIJAH: 02/11/24-1040 STATUS: COMP REQ : [id number] RECD: 02/11/24-[address]: Radha Felix MD COMP: 02/11/24-1354 ENTERED: 02/11/24-[address]: Efren Duggan MD ORDERED: Lipid Panel, Free T4, TSH Test Result Flag Reference Triglyceride 126 <150 mg/dL Desirable Triglyceride: less than 150 mg/dL Borderline High Triglyceride 150-199 mg/dL High Triglyceride: 200-499 mg/dL Very High Triglyceride: greater than or equal to 5OO mg/dL Cholesterol 138 <200 mg/dL Desirable Cholesterol: less than 200 mg/dL Borderline High Cholesterol: 200-239 mg/dL High Cholesterol: greater than 239 mg/dL LDL Calculated 57 <100 mg/dL Desirable LDL: less than 100 mg/dL Near Optimal/Above Optimal LDL: 110-129 mg/dL Borderline High LDL: 130-159 mg/dL High LDL: 160-189 mg/dL Very High LDL: greater than or equal to 190 mg/dL HDL 56 >40 mg/dL Desirable HDL: greater than 40 mg/dL Note: This HDL assay may give artificially low results in patients with liver disease. Free T4 0.88 0.71-1.85 ng/dL TSH 3rd Gen. 25.27 H 0.32-4.0 uIU/mL Note: A sustained TSH level above 2.5 uIU/mL may warrant further investigation. TSH 3rd Generation ([facility]) Assessment and Plan Assessment & Plan (1) Annual visit for general adult medical examination with abnormal findings: Code(s): Z00.01 - Encounter for general adult medical examination with abnormal findings Plan: Reviewed recent fasting labs with patient. continue with regular dental exam every 6 months and regular eye exams, at least every 2 years. Take adequate calcium in diet and vitamin-D 3 at 2000 IU per cap once a day, in addition to weight-bearing exercises to help maintain good muscle tone and weight control. Instructed to do self-breast exam, and continue with yearly mammogram, s up-to-date with her bone density scan, which came back within normal limits. She is up-to-date with all her vaccinations, Cologuard testing was done in 2021, came back negative repeat again in 2024 (2) Hypothyroidism: Code(s): E03.9 - Hypothyroidism, unspecified Qualifiers: Hypothyroidism type: acquired Qualified Code(s): E03.9 - Hypothyroidism, unspecified Plan: Currently with low free T4 and elevated TSH, with patient experiencing more fatigue, dry skin. Ordered thyroid peroxidase antibody check. Will increase dose of Tirosint to 137 mcg daily to take 1 hour before breakfast. Repeat another TSH, free T4, free T3 and reverse T3 as well as thyroid peroxidase antibodies in 6 weeks (3) Atherosclerosis of both carotid arteries: Code(s): I65.23 - Occlusion and stenosis of bilateral carotid arteries Plan: Continue aspirin 81 mg daily, Encouraged to continue to participate in heart healthy lifestyle with aggressive weight loss program as regular physical activity. Goal blood pressure is less than 130/80 and goal LDL is less than 70 mg per dL (4) Hypertension: Code(s): I10 - Essential (primary) hypertension Plan: Blood pressure at goal of less than 130/80. Continue with current medication. Reinforced importance of following a low sodium diet, getting regular exercise, and lowering stress levels. (5) S/p TAVR (transcatheter aortic valve replacement), bioprosthetic: Code(s): Z95.3 - Presence of xenogenic heart valve Plan: Needs SBE prophylaxis, continue aspirin 81 mg daily, followed by cardiology (6) Dyslipidemia: Code(s): E78.5 - Hyperlipidemia, unspecified Plan: Reviewed recent fasting lipid profile with patient with levels at goal . Continue with rosuvastatin 40 mg daily and ezetimibe 10 mg daily , and Praluent. Advised strict adherence to low-cholesterol diet and regular exercise, at least 30 minutes 3 to 4 times a week. Advised patient to make healthy food choices, eat more fruits, vegetables, whole grains, wild caught fish and low- fat dairy. Limit amount of meat and fried or fatty food products, as well as processed foods and fast foods. Orders: Orders Thyroid Peroxidase Antibodies 03/30/24 E03.9 - Hypothyroidism, unspecified Thyroid Stimulating Hormone 03/30/24 E03.9 - Hypothyroidism, unspecified Free T4 (Free Thyroxine) 03/30/24 E03.9 - Hypothyroidism, unspecified Triiodothyronine T3 Free 03/30/24 E03.9 - Hypothyroidism, unspecified Thyroid Peroxidase Antibodies Today E03.9 - Hypothyroidism, unspecified Triiodothyronine T3 Reverse 03/30/24 E03.9 - Hypothyroidism, unspecified Medications: New levothyroxine (Tirosint) 137 mcg PO DAILY 30 caps 1RF Coding Level of Care Code Est Pt Prev Care >65y(38819) Diagnoses Annual visit for general adult medical examination with abnormal findings Z00.01 Acquired hypothyroidism E03.9 Hypothyroidism type: acquired Atherosclerosis of both carotid arteries I65.23 Hypertension I10 S/p TAVR (transcatheter aortic valve replacement), bioprosthetic Z95.3 Dyslipidemia E78.5 Additional Codes ANISHA-7 Assessment Billing - ANISHA-7 Assessment Tool: ANISHA-7 Assessment [id number] ([id number])
[2024-02-12 11:19] VITALS: BP 124/68; PULSE 80; O2SAT 98; BMI 46.9
== END 2024-02-12 12:44 | disposition home or self-care (01) ==
PROVIDERS: Visit Provider Internal Medicine
DX: Z00.00 Encounter for general adult medical examination without abnormal findings (principal); E03.9 Hypothyroidism, unspecified; I65.23 Occlusion and stenosis of bilateral carotid arteries; I10 Essential (primary) hypertension; Z95.3 Presence of xenogenic heart valve; E78.5 Hyperlipidemia, unspecified
CPT/HCPCS: 99397

== ENCOUNTER 2024-02-12 12:20 | Outpatient (REF) | payer MEDICARE, SELFPAY ==
[2024-02-13 11:53] LABS: Thyroid Peroxidase Antibodies 4 IU/mL (<9)
== END 2024-02-12 12:21 | disposition home or self-care (01) ==
LOC: HO.HMGCLDS 12:20
PROVIDERS: PCP Internal Medicine; Visit Provider Internal Medicine
DX: E03.9 Hypothyroidism, unspecified (principal)
CPT/HCPCS: 36415; 86376

== ENCOUNTER 2024-02-25 11:32 | Outpatient (REF) | payer MEDICARE, SELFPAY ==
--- NOTE | ~2024-02-25 | US_ITS ---
EXAMINATION: US THYROID CLINICAL INFORMATION: Nontoxic single thyroid nodule. COMPARISON: Thyroid ultrasound 01/31/2023 and 01/31/2022. TECHNIQUE: Linear transducer don-scale and color Doppler examination with attention to the region of the thyroid. FINDINGS: SIZE: Measurements of the thyroid lobes and nodules are given in sagittal, anteroposterior and transverse dimensions respectively. Thyroid gland is markedly atrophic and barely discernible. No focal thyroid nodule is seen. NODES: No lymphadenopathy is seen in the tissue surrounding the thyroid gland. US/US thyroid IMPRESSION: Thyroid gland is markedly atrophic and barely discernible. No focal thyroid nodule is seen. ACR TI-RADS RECOMMENDATION REFERENCE: Ultrasound-guided fine-needle aspiration, follow up ultrasound, no further followup. * TR1 (0 point) and TR2 (2 points): No FNA or followup * TR3 (3 points): FNA if more than or equal to 2.5 cm in maximum dimension, follow up ultrasound in 1, 3 and 5 years if 1.5 to 2.4 cm in maximum dimension. * TR4 (4-6 points): FNA if more than or equal to 1.5 cm in maximum dimension, follow up ultrasound in 1, 2, 3 and 5 years if 1 to 1.4 cm in maximum dimension. * TR5 (more than or equal to 7 points): FNA if more than or equal to 1 cm in maximum dimension, follow up ultrasound every year for 5 years if 0.5 to 0.9 cm in maximum dimension. * TR3, TR4 or TR5 nodules that are below the size threshold for follow up receive no followup.
== END 2024-02-25 11:33 | disposition home or self-care (01) ==
LOC: HO.HMGCX 11:32
PROVIDERS: PCP Internal Medicine; Visit Provider Internal Medicine
DX: E04.1 Nontoxic single thyroid nodule (principal); E03.9 Hypothyroidism, unspecified
CPT/HCPCS: 76536

== ENCOUNTER 2024-03-03 09:55 | Outpatient (AMB) | payer MEDICARE, SELFPAY ==
[2024-03-03 09:55] VITALS: BP 112/84; PULSE 100; BMI 46.7
--- NOTE | 2024-03-03 09:55 | MHC.OFFVIS ---
Vital Signs 03/03/24 09:55 Height 5 ft 4 in Weight 271 lb 13.279 oz BMI 46.7 BP 112/84 Blood Pressure Location Lt brachial Position Sitting Pulse 100 Pulse Source Pulse Oximeter Intake Visit Reasons: hypothyroidism and thyroid nodules Intake Note: Patient presents today for Hypothyroidism and Thyroid Nodules. Hospice Administrator Required: No Accompanied by: Self / Same As Patient Allergies codeine [Codeine] Allergy (Mild, Verified 03/03/24 09:59) NAUSEA, nausa BANDAIDS Allergy (Mild, Uncoded 03/03/24 09:59) RASH Ibuprofen Allergy (Unknown, Uncoded 03/03/24 09:59) bleeding ulcer Latex tape Allergy (Unknown, Uncoded 03/03/24 09:59) Rash NSAIDS/ASA Allergy (Unknown, Uncoded 03/03/24 09:59) BLEEDING ULCER Medication List - Last Reconciled 03/03/24 by Rohan Hoffman MD acetaminophen (Tylenol Extra Strength) 500 mg PO Q6H PRN alirocumab (Praluent Pen) 150 mg subcut Q2W aspirin (Adult Low Dose Aspirin) 81 mg PO DAILY cholecalciferol (vitamin D3) 2,000 units PO DAILY coenzyme Q10 (CoQ-10) 200 mg PO DAILY colesevelam 1,875 mg (3 x 625 mg) PO BID ezetimibe 10 mg PO DAILY furosemide 40 mg PO DAILY metoprolol tartrate 25 mg PO DAILY omeprazole 40 mg PO QAM rosuvastatin 40 mg PO DAILY Tirosint (levothyroxine) 175 mcg PO DAILY NS zinc acetate 25 mg PO DAILY HPI Comments Details: 73 yo female today for follow-up visit, she was last seen on 02/03/21 for hypothyroidism management by Dr. Rosa . Previously, she was seen by me many years ago She is feeling well. Patient reports that after was changed the preparation to Tirosint 250 mcg daily she is doing very well. She notes that she has more energy, she is sleeping better. Her skin feels better. Patient was diagnosed with hypothyroidism and 1996. She does have extensive family history of thyroid disease her mother has hypothyroidism in her daughter has Graves disease. She has had fluctuation in thyroid hormones level. She denies cold or heat intolerance, she has gained some weight in the last 3 months. She denies diarrhea, constipation, imsomnia, fatigue, dry skin, dysphagia, dyspnea, dysphonia, palpitations, irritability, anxiety. She denies recent excess iodine or IV contrast exposure, denies radiation to head or neck, denies thyroid surgery or biopsy, denies herbal or OTC medications. 11/25/2019 Right Thyroid Lobe: 3.0 x 0.8 x 1.1 cm, volume 1.4 mL. Parenchyma: The gland echotexture is homogeneous. Thyroid vascularity is normal. Left Thyroid Lobe: 2.8 x 0.9 x 1.0 cm, volume 1.3 mL. Parenchyma: The gland echotexture is homogeneous. Thyroid vascularity is normal. Isthmus: 0.2 cm in maximum AP dimension. RIGHT THYROID LOBE: There is 1 nodule seen. 1. Location: Inferior. Size: 0.5 x 0.3 x 0.2 cm. Nodule characteristics: Hypoechoic, smoothly marginated with no intranodular flow. ISTHMUS: No nodules. LEFT THYROID LOBE: There is 1 nodule seen. 1. Location: Middle. Size: 0.8 x 0.2 x 0.4 cm. Nodule characteristics: Hypoechoic, smoothly marginated with no intranodular flow. Likely simple cyst. NODES: A 1.1 cm largest lymph node in transverse axis, right neck. It appears benign. Laboratory Tests 01/19/20 08/02/20 01/30/21 08:30 08:00 07:33 Free T3 3.3 TSH 2.21 Free T4 1.20 TSH 3rd Generation 3.76 Laboratory Tests 01/19/20 05/31/20 08/02/20 08:30 08:41 08:00 25-OH Vitamin D Total 32.0 TSH Free T4 Free T3 3.3 TSH 3rd Generation 3.76 IgA Endomysial IgA Ab Titer Endomysial IgA Ab Tiss Transglutamin IgG Tiss Transglutamin IgA Thyroid Peroxidase Ab 6 Anti-Gliadin IgG Ab Anti-Gliadin IgA Ab 08/02/20 10/03/20 08:00 07:44 25-OH Vitamin D Total TSH 9.34 H Free T4 1.14 Free T3 TSH 3rd Generation IgA 417 H Endomysial IgA Ab Titer TNP Endomysial IgA Ab Negative Tiss Transglutamin IgG 3 Tiss Transglutamin IgA 1 Thyroid Peroxidase Ab Anti-Gliadin IgG Ab 7 Anti-Gliadin IgA Ab 13 Currently on Tirosint 137 ug . [facility] Medical History Annual visit for general adult medical examination with abnormal findings Right elbow pain Severe aortic stenosis Right elbow pain Atherosclerosis of both carotid arteries Osteoarthritis Dyslipidemia Hypertension Thyroid nodule Hypothyroidism Surgical History S/p TAVR (transcatheter aortic valve replacement), bioprosthetic History of esophagogastroduodenoscopy (EGD) History of left knee replacement Hx of endarterectomy Hx of breast biopsy Hx of tubal ligation Hx of tonsillectomy Hx of cholecystectomy Family History Father Heart valve replaced Abdominal aortic aneurysm Mother Enlarged heart Hodgkins lymphoma Cancer Social History Housing: House Alcohol intake: current Patient Tobacco Use Status: Never used Tobacco e-Cigarette/Vaping Use: Never Used service: No Current occupational status: retired Cognitive needs: No Hearing needs: No Vision needs: No Physical Exam Vital Signs: Last Vital Signs Pulse 100 03/03/24 09:55 BP 112/84 03/03/24 09:55 BMI result Body Mass Index 46.7 Const Other: Thyroid gland is of normal size weighs by 15 g . There are no thyroid nodules palpated. Reflexes 2+ DTR. Assessment & Plan Assessment & Plan (1) Hypothyroidism: Code(s): E03.9 - Hypothyroidism, unspecified Category: Medical Qualifiers: Hypothyroidism type: acquired Qualified Code(s): E03.9 - Hypothyroidism, unspecified Plan: This 71-year-old white female with a history of longstanding hypothyroidism being replaced with Tirosint 137 ug . She appears to be clinically and biochemically hypothyroid with elevated TSH Plan is to c increase the Tirosint to 175 mcg and recheck TSH and free T4 in 6 weeks time. Further titration will take place at that point Orders: Orders Free T4 (Free Thyroxine) 6 Weeks E03.9 - Hypothyroidism, unspecified Thyroid Stimulating Hormone 6 Weeks E03.9 - Hypothyroidism, unspecified Medications: New Tirosint (levothyroxine) 175 mcg PO DAILY 30 caps 5RF NS Discontinued levothyroxine (Tirosint) Discontinued Reason: Doctor's Order 137 mcg PO DAILY 30 caps 1RF
== END 2024-03-03 10:26 | disposition home or self-care (01) ==
PROVIDERS: PCP Internal Medicine; Visit Provider Internal Medicine Endocrinology, Diabetes & Metabolism
DX: E03.9 Hypothyroidism, unspecified (principal)
CPT/HCPCS: 99213

== ENCOUNTER → 2024-03-03 09:55 | Outpatient (BNVA) | payer MEDICARE, SELFPAY | PROVIDERS: PCP Internal Medicine; Visit Provider Internal Medicine Endocrinology, Diabetes & Metabolism | DX: E03.9 Hypothyroidism, unspecified (principal) | CPT/HCPCS: 99212 ==

== ENCOUNTER 2024-04-01 10:35 | Outpatient (REF) | payer MEDICARE, SELFPAY ==
[2024-04-02 14:44] LABS: CRP High Sensitivity 1.2 mg/L
== END 2024-04-01 10:36 | disposition home or self-care (01) ==
LOC: HO.HMGCLDS 10:35
PROVIDERS: PCP Internal Medicine; Visit Provider Internal Medicine Cardiovascular Disease
DX: E03.9 Hypothyroidism, unspecified (principal); I65.23 Occlusion and stenosis of bilateral carotid arteries
CPT/HCPCS: 36415; 86141

== ENCOUNTER 2024-04-14 10:12 | Outpatient (REF) | payer MEDICARE, SELFPAY ==
[2024-04-14 14:17] LABS: Free T4 (Free Thyroxine) 1.09 ng/dL (0.71-1.85); Thyroid Stimulating Hormone 2.76 uIU/mL (0.32-4.0)
== END 2024-04-14 10:13 | disposition home or self-care (01) ==
LOC: HO.HMGCLDS 10:12
PROVIDERS: PCP Internal Medicine; Visit Provider Internal Medicine Endocrinology, Diabetes & Metabolism
DX: E03.9 Hypothyroidism, unspecified (principal)
CPT/HCPCS: 36415; 84439; 84443

== ENCOUNTER 2024-04-21 07:43 | Outpatient (REF) | payer MEDICARE, SELFPAY | END 2024-04-21 07:44 | disposition home or self-care (01) | LOC: HO.MAMMO 07:43 | PROVIDERS: PCP Internal Medicine; Visit Provider Internal Medicine | DX: Z12.31 Encounter for screening mammogram for malignant neoplasm of breast (principal) | CPT/HCPCS: 77063; 77067 ==

== ENCOUNTER → 2024-04-21 07:45 | Outpatient (BNV) | payer MEDICARE, SELFPAY | PROVIDERS: PCP Internal Medicine; Visit Provider Radiology Diagnostic Radiology | DX: Z12.31 Encounter for screening mammogram for malignant neoplasm of breast (principal) | CPT/HCPCS: 77063; 77067 ==

== ENCOUNTER 2024-06-02 09:48 | Outpatient (AMB) | payer MEDICARE, SELFPAY ==
[2024-06-02 09:56] VITALS: BP 108/76; PULSE 85; BMI 46.8
--- NOTE | 2024-06-02 09:56 | A.OFFVIS_ITS ---
Vital Signs 06/02/24 09:56 Height 5 ft 4 in Weight 272 lb 7.861 oz BMI 46.8 BP 108/76 Blood Pressure Location Rt brachial Position Sitting Pulse 85 Pulse Source Pulse Oximeter Intake Visit Reasons: f/u hypothyroidism-confirmed Intake Note: Patient present today for Hypothyroidism follow up visit. Silk Weaver Required: No Accompanied by: Self / Same As Patient Allergies codeine [Codeine] Allergy (Mild, Verified 06/02/24 10:01) NAUSEA, nausa BANDAIDS Allergy (Mild, Uncoded 06/02/24 10:01) RASH Ibuprofen Allergy (Unknown, Uncoded 06/02/24 10:01) bleeding ulcer Latex tape Allergy (Unknown, Uncoded 06/02/24 10:01) Rash NSAIDS/ASA Allergy (Unknown, Uncoded 06/02/24 10:01) BLEEDING ULCER HPI Comments Details: 73 yo female today for follow-up visit, she was last seen on 02/03/21 for hypothyroidism management by Dr. Rosa . Previously, she was seen by me many years ago She is feeling well. Patient reports that after was changed the preparation to Tirosint 250 mcg daily she is doing very well. She notes that she has more energy, she is sleeping better. Her skin feels better. Patient was diagnosed with hypothyroidism and 1995. She does have extensive family history of thyroid disease her mother has hypothyroidism in her daughter has Graves disease. She has had fluctuation in thyroid hormones level. She denies cold or heat intolerance, she has gained some weight in the last 3 months. She denies diarrhea, constipation, imsomnia, fatigue, dry skin, dysphagia, dyspnea, dysphonia, palpitations, irritability, anxiety. She denies recent excess iodine or IV contrast exposure, denies radiation to head or neck, denies thyroid surgery or biopsy, denies herbal or OTC medications. 11/25/2019 Right Thyroid Lobe: 3.0 x 0.8 x 1.1 cm, volume 1.4 mL. Parenchyma: The gland echotexture is homogeneous. Thyroid vascularity is normal. Left Thyroid Lobe: 2.8 x 0.9 x 1.0 cm, volume 1.3 mL. Parenchyma: The gland echotexture is homogeneous. Thyroid vascularity is normal. Isthmus: 0.2 cm in maximum AP dimension. RIGHT THYROID LOBE: There is 1 nodule seen. 1. Location: Inferior. Size: 0.5 x 0.3 x 0.2 cm. Nodule characteristics: Hypoechoic, smoothly marginated with no intranodular flow. ISTHMUS: No nodules. LEFT THYROID LOBE: There is 1 nodule seen. 1. Location: Middle. Size: 0.8 x 0.2 x 0.4 cm. Nodule characteristics: Hypoechoic, smoothly marginated with no intranodular flow. Likely simple cyst. NODES: A 1.1 cm largest lymph node in transverse axis, right neck. It appears benign. Laboratory Tests 01/19/20 08/02/20 01/30/21 08:30 08:00 07:33 Free T3 3.3 TSH 2.21 Free T4 1.20 TSH 3rd Generation 3.76 Laboratory Tests 01/19/20 05/31/20 08/02/20 08:30 08:41 08:00 25-OH Vitamin D Total 32.0 TSH Free T4 Free T3 3.3 TSH 3rd Generation 3.76 IgA Endomysial IgA Ab Titer Endomysial IgA Ab Tiss Transglutamin IgG Tiss Transglutamin IgA Thyroid Peroxidase Ab 6 Anti-Gliadin IgG Ab Anti-Gliadin IgA Ab 08/02/20 10/03/20 08:00 07:44 25-OH Vitamin D Total TSH 9.34 H Free T4 1.14 Free T3 TSH 3rd Generation IgA 417 H Endomysial IgA Ab Titer TNP Endomysial IgA Ab Negative Tiss Transglutamin IgG 3 Tiss Transglutamin IgA 1 Thyroid Peroxidase Ab Anti-Gliadin IgG Ab 7 Anti-Gliadin IgA Ab 13 Currently on Tirosint 175 ug . [facility] Medical History (Updated 05/08/24 @ 03:54 by Radha Felix MD) Morbid obesity with BMI of 45.0-49.9, adult Annual visit for general adult medical examination with abnormal findings Right elbow pain Severe aortic stenosis Right elbow pain Atherosclerosis of both carotid arteries Osteoarthritis Dyslipidemia Hypertension Thyroid nodule Hypothyroidism Surgical History S/p TAVR (transcatheter aortic valve replacement), bioprosthetic History of esophagogastroduodenoscopy (EGD) History of left knee replacement Hx of endarterectomy Hx of breast biopsy Hx of tubal ligation Hx of tonsillectomy Hx of cholecystectomy Family History Father Heart valve replaced Abdominal aortic aneurysm Mother Enlarged heart Hodgkins lymphoma Cancer Social History Housing: House Alcohol intake: current Patient Tobacco Use Status: Never used Tobacco e-Cigarette/Vaping Use: Never Used service: No Current occupational status: retired Cognitive needs: No Hearing needs: No Vision needs: No Physical Exam Const Other: Thyroid gland is of normal size weighs by 15 g . There are no thyroid nodules palpated. Reflexes 2+ DTR. Assessment & Plan Assessment & Plan (1) Hypothyroidism: Code(s): E03.9 - Hypothyroidism, unspecified Category: Medical Qualifiers: Hypothyroidism type: acquired Qualified Code(s): E03.9 - Hypothyroidism, unspecified Plan: This 71-year-old white female with a history of longstanding hypothyroidism being replaced with Tirosint 137 ug . She appears to be clinically and biochemically euthyroid Plan is to continue the current therapy Coding Level of Care Code Est Pt Level 3 (45339) Diagnoses Acquired hypothyroidism E03.9 Hypothyroidism type: acquired
== END 2024-06-02 10:35 | disposition home or self-care (01) ==
PROVIDERS: PCP Internal Medicine; Visit Provider Internal Medicine Endocrinology, Diabetes & Metabolism
DX: E03.9 Hypothyroidism, unspecified (principal)
CPT/HCPCS: 99213

== ENCOUNTER → 2024-06-02 09:48 | Outpatient (BNVA) | payer MEDICARE, SELFPAY | PROVIDERS: PCP Internal Medicine; Visit Provider Internal Medicine Endocrinology, Diabetes & Metabolism | DX: E03.9 Hypothyroidism, unspecified (principal) | CPT/HCPCS: 99212 ==

== ENCOUNTER 2024-10-05 08:59 | Outpatient (REF) | payer MEDICARE, SELFPAY ==
--- NOTE | ~2024-10-05 | US_ITS ---
EXAMINATION: US EXTRACRANIAL CAROTID DUPLEX, BILATERAL CLINICAL INFORMATION: Occlusion and stenosis of bilateral carotid arteries. COMPARISON: 05/16/2023 TECHNIQUE: Real-time ultrasound and Doppler techniques (integrating B-mode 2-D vascular images, Doppler spectral analysis and color-flow Doppler imaging) were utilized to interrogate the extracranial carotid arteries, the vertebral arteries and proximal subclavian arteries bilaterally. The degree of stenosis is determined by criteria similar to NASCET. FINDINGS: Right Side: 1. There is moderate atherosclerotic plaque seen in the bifurcation/proximal ICA region. 2. The common carotid artery PSV proximally is 121 cm/s and distally 75 cm/s. 3. The proximal internal carotid artery velocities are 172 cm/s systolic and 53 cm/s diastolic. 4. The proximal external carotid artery PSV is 141 cm/s. 5. The vertebral artery shows antegrade flow. 6. The subclavian artery waveforms are normal. Left Side: 1. There is minimal atherosclerotic plaque seen in the bifurcation/proximal ICA region. 2. The common carotid artery PSV proximally is 111 cm/s and distally 93 cm/s. This has decreased when compared to the prior study from 05/16/2023 when peak systolic velocity was 138 which had placed that in the 50-79% category previously. There is a history of left carotid endarterectomy. 3. The proximal internal carotid artery velocities are 70 cm/s systolic and 32 cm/s diastolic. 4. The proximal external carotid artery PSV is 94 cm/s. 5. The vertebral artery shows antegrade flow. 6. The subclavian artery waveforms are normal. US/US carotid duplex BI IMPRESSION: 1. Right: Moderate, hemodynamically significant stenosis of the proximal right internal carotid artery corresponding to a 50-79% stenosis by velocity criteria. 2. Left: Minimal, non-hemodynamically significant stenosis of the proximal left internal carotid artery corresponding to a 0-49% stenosis by velocity criteria, improved since prior. 3. Compared with 05/16/2023, velocities on the left have improved but findings on the right remain similar. Electronically signed by: Chris Karimi MD 10/08/2024 11:53 AM EST
== END 2024-10-05 09:00 | disposition home or self-care (01) ==
LOC: HO.US 08:59
PROVIDERS: PCP Internal Medicine; Visit Provider Internal Medicine Cardiovascular Disease
DX: I65.23 Occlusion and stenosis of bilateral carotid arteries (principal)
CPT/HCPCS: 93880

== ENCOUNTER → 2024-12-09 08:58 | Outpatient (REF) | payer MEDICARE, SELFPAY ==
--- OUTSIDE RECORDS SUMMARY | 2024-12-09 10:10 | XMS_ITS ---
Author Organization [facility] Address [address] [place] [address] Care Team Providers Care Assistant Fitness Manager Name Role Phone Isidro ANDRADE, Radha Primary Care Provider Romeo Broussard Jr Unavailable [phone] ALLERGIES Allergen (clinical drug ingredient) Drug/Non Drug Allergy documented on EMR Reaction Allergy Type Onset Date Status ibuprofen Ibuprofen sesitivity to stomach Drug Allergy Active REASON FOR VISIT Patient presents today for abdominal pain. MEDICATIONS Medication SIG (Take, Route, Frequency, Duration) Notes Start Date End Date Status Ezetimibe 10 MG TAKE 1 TABLET BY AUSTEN TH DAILY Oral for 90 Active Zinc Active Vitamin D3 Active Tylenol Arthritis Pain Active Omeprazole 40 MG 1 capsule 30 minutes before morning meal Orally Once a day for 90 days 02/28/2023 Active Tirosint 125 MCG Oral for 60 A ctive Colesevelam HCl 625 MG TAKE 3 TABLETS BY MOUTH TWICE DAILY Oral for 90 Active Rosuvastatin Calcium 40 MG TAKE 1 TABLET BY MOUTH DAILY Oral for 90 Active Clopidogrel Bisulfate 75 MG Oral for 90 Active Metoprolol Tartrate 25 MG Oral for 90 Active Welchol 625mg Active Aspirin 81mg Active Zetia 10mg Active Omeprazole 40 MG TAKE 1 CAPSULE BY MO UTH EVERY DAY 30 MINUTES BEFORE BREAKFAST for 90 days Active Praluent 75 MG/ML INJECT 75MG SUBCUTAN EOUSLY EVERY 2 WEEKS Subcutaneous for 28 Active Hydralazine-HCTZ 25 mg Active IMMUNIZATIONS Vaccine Route Administration Date Status Comme nts Influenza Unknown 09/28/2024 Refused PROBLEMS Problem Type ICD Code Onset Dates Problem Status W/U Status Risk SNOMED Code Notes Problem Fatty liver (K76.0) Active confirmed 19 [id number] Problem Gastroesophageal reflux disease without esophagitis (K21.9) Active confirmed 030644873 VITAL SIGNS BMI 45.69 kg/m2 09/28/2024 Blood pressure systolic 000 mm Hg 09/28/20 24 Blood pressure diastolic 00 mm Hg 024 Height 64.5 in 09/28/2024 Temperature 97.3 degrees Fahrenheit 09/28/20 24 Weight 270 lb 6 oz lbs 09/28/2024 Encounters Encounter Location Date Provider Diagnosis [facility] [address] [place] [address] 09/28/2024 Romeo Meyers Jr Fatty liver K76.0 and Gastroesophageal reflux disease without esophagitis K21.9 ASSESSMENTS Encounter Date Diagnosis Assessment Notes Treatment Notes Treatment Clinical Notes 09/28/2024 Fatty liver (ICD-10 - K76.0) Fatty liver - nonalcoholic material was printed 09/28/2024 Gastroesophageal reflux disease without esophagitis (ICD-10 - K21.9) PLAN OF TREATMENT Treatment Notes Assessment Notes Fatty liver Fatty liver - nonalc oholic material was printed Pending Test Test Name Order Date LIVER PROFILE 09/28/2024 CBC w/o DIFF 09/28/2024 Liver Fibrosis Pnl 09/28/2024 Next Appt Details Follow Up: 1 Year, Reason: Provider Name:Romeo cooper Jr, 09/29/2025 09:20:00 AM, [address], [address], [place], [address],
--- OUTSIDE RECORDS SUMMARY | 2024-12-09 10:10 | XMS_ITS ---
Author Organization [facility] Address [address] [place] [address] Care Team Providers Care Customer Account Executive Name Role Phone Isidro ANDRADE, Radha Primary Care Provider Paul Meyers Jr, Romeo Meade REASON FOR VISIT Patient presents today for abdominal pain Encounters Encounter Location Date Provider Diagnosis [facility] [address] [place] [address] 03/04/2024 Romeo Meyers Jr PLAN OF TREATMENT Next Appt Details Provider Name:Romeo cooper Jr, 09/29/2025 09:20:00 AM, [address] [place] [address], [address], [place], [address],
--- OUTSIDE RECORDS SUMMARY | 2024-12-09 10:10 | XMS_ITS | Patient Health Record ---
Author Organization [facility] Address [address] [place] [address] Care Team Providers Care Life Cycle Assessment Analyst Name Role Phone Isidro ANDRADE, Radha Primary Care Provider Romeo Broussard Jr ALLERGIES Allergen (clinical drug ingredient) Drug/Non Drug Allergy documented on EMR Reaction Allergy Type Onset Date Status ibuprofen Ibuprofen sesitivity to stomach Drug Allergy Active REASON FOR REFERRAL No Information MEDICATIONS Medication SIG (Take, Route, Frequency, Duration) Notes Start Date End Date Status Rosuvastatin Calcium 40 MG TAKE 1 TABLET BY MOUTH DAILY Oral for 90 Active Ezetimibe 10 MG TAKE 1 TABLET BY AUSTEN TH DAILY Oral for 90 Active Zinc Active Clopidogrel Bisulfate 75 MG Oral for 90 Active Metoprolol Tartrate 25 MG Oral for 90 Active Omeprazole 40 MG 1 capsule 30 minutes before morning meal Orally Once a day for 90 days 02/28/2023 Active Welchol 625mg Active Aspirin 81mg Active Hydralazine-HCTZ 25 mg Active Zetia 10mg Active Tirosint 125 MCG Oral for 60 A ctive Colesevelam HCl 625 MG TAKE 3 TABLETS BY MOUTH TWICE DAILY Oral for 90 Active Omeprazole 40 MG TAKE 1 CAPSULE BY MO UTH EVERY DAY 30 MINUTES BEFORE BREAKFAST for 90 days Active Praluent 75 MG/ML INJECT 75MG SUBCUTAN EOUSLY EVERY 2 WEEKS Subcutaneous for 28 Active Vitamin D3 Active Tylenol Arthritis Pain Active IMMUNIZATIONS Vaccine Route Administration Date Status Comme nts Influenza Unknown 09/28/2024 Refused SOCIAL HISTORY Sex Assigned At : Social History Observation Description Sex Assigned At Unknown PROBLEMS Problem Type ICD Code Onset Dates Problem Status W/U Status Risk SNOMED Code Notes Problem Colon cancer screening (Z12.11) Active confirmed 852688836 Problem Gastroesophageal reflux disease without esophagitis (K21.9) Active confirmed 747684977 Problem Fatty liver (K76.0) Active confirmed 19 4037751 Problem Peptic ulcer disease (K27.9) Active confirmed 86962708 Problem RUQ pain (R10.11) Active confirmed 3017 35994 VITAL SIGNS Temperature 97.3 degrees Fahrenheit 09/28/2024 Blood pressure diastolic 00 mm Hg 09/28/2024 Height 64.5 in 09/28/2024 Blood pressure systolic 000 mm Hg 09/28/2024 Weight 270 lb 6 oz lbs 09/28/2024 BMI 45.69 kg/m2 09/28/2024 Encounters Encounter Location Date Provider Diagnosis [facility] [address] [place] [address] 03/04/2024 Romeo Meyers Jr [facility] [address] [place] [address] 05/29/2024 Romeo Meyers Jr [facility] [address] [place] [address] 09/28/2024 Romeo Meyers Jr Fatty liver K76.0 and Gastroesophageal reflux disease without esophagitis K21.9 [facility] [address] [place] [phone] 02/28/2024 Romeo Meyers Jr ASSESSMENTS Encounter Date Diagnosis Assessment Notes Treatment Notes Treatment Clinical Notes 09/28/2024 Gastroesophageal reflux disease without esophagitis (ICD-10 - K21.9) 09/28/2024 Fatty liver (ICD-10 - K76.0) Fatty liver - nonalcoholic material was printed PLAN OF TREATMENT Pending Test Test Name Order Date LIVER PROFILE 09/28/2024 CBC w/o DIFF 09/28/2024 CBC w/o DIFF 09/03/2019 US ABD 02/28/2023 TSH REFLEX FREE T4 09/03/2019 Liver Fibrosis Pnl 09/28/2024 Future Test Test Name Order Date COLONOSCOPY VIA STOMA CONTROL OF BLEEDIN G ANY METHOD 09/11/2011 Next Appt Details Provider Name:Romeo cooper Jr, 09/29/2025 09:20:00 AM, [address], [address], [place], [address], Insurance Providers Payer Name Payer Address Payer Phone Subscriber Number Group Number Insured Name Patient Relationship to Insured Coverage Start Date Coverage End Date [facility] [address] [facility] [place]ES [phone] [id number] MANDY VERONICA Self - patient is the insured MEDICAL (GENERAL) HISTORY Medical History History ICD Code hypercholesterolemia hypertension degenerative joint disease Hypothyroidism Aortic stenosis Thyroid nodule Peptic ulcer disease, EGD antral and duodenal ulcers, followup EGD 11/30 healing, H. pylori negative. Colonoscopy 09/21, normal, t en-year followup. Screening with stool DNA testing 09/01 negative, (patient preference) Surgical History Surgery Date(Month/Year) cholecystectomy tonsillectomy tubal ligation appendectomy left knee replacement Left carotid endarterectomy 2012 TAVR 09/2022
--- OUTSIDE RECORDS SUMMARY | 2024-12-09 10:10 | XMS_ITS ---
Author Organization [facility] Address [address] [place] [address] Care Team Providers Care Steam Boiler Fireman Name Role Phone Isidro ANDRADE, Radha Primary Care Provider Paul Meyers Jr, Romeo Meade [phone] REASON FOR VISIT Patient presents today for abdominal pain Encounters Encounter Location Date Provider Diagnosis [facility] [address] [place] [address] 05/29/2024 Romeo Meyers Jr PLAN OF TREATMENT Next Appt Details Provider Name:Romeo cooper Jr, 09/29/2025 09:20:00 AM, [address] [place] [address], [address], [place], [address],
== END ==
LOC: HO.CARD 08:58
PROVIDERS: PCP Internal Medicine; Visit Provider Internal Medicine Cardiovascular Disease
DX: Z95.3 Presence of xenogenic heart valve (principal)
CPT/HCPCS: 93306; Q9957

== ENCOUNTER 2024-12-25 10:26 | Outpatient (REF) | payer MEDICARE, SELFPAY ==
[2024-12-25 13:39] LABS: Cholesterol 96 mg/dL (<200); HDL Cholesterol 44 mg/dL (>40); LDL Cholesterol Calculated 35 mg/dL (<100); Triglycerides 88 mg/dL (<150)
== END 2024-12-25 10:27 | disposition home or self-care (01) ==
LOC: HO.HMGCLDS 10:26
PROVIDERS: PCP Internal Medicine; Visit Provider Internal Medicine Cardiovascular Disease
DX: E78.5 Hyperlipidemia, unspecified (principal); E66.01 Morbid (severe) obesity due to excess calories; Z68.42 Body mass index [BMI] 45.0-49.9, adult
CPT/HCPCS: 36415; 80061

== ENCOUNTER 2024-12-29 10:26 | Outpatient (AMB) | payer MEDICARE, SELFPAY ==
[2024-12-29 10:28] VITALS: BP 120/74; PULSE 97; BMI 45.0
--- NOTE | 2024-12-29 10:28 | A.OFFVIS_ITS ---
Vital Signs 12/29/24 10:28 Height 5 ft 4 in Weight 262 lb 5.601 oz BMI 45.0 BP 120/74 Blood Pressure Location Lt brachial Position Sitting Pulse 97 Intake Visit Reasons: 1 yr f/up s/p carotids/ echo Intake Note: 1 year follow-up with ekg after carotid u/s and echo c/o fogginess at times Data Integrity Consultant Required: No Allergies codeine [Codeine] Allergy (Mild, Verified 06/02/24 10:01) NAUSEA, nausa BANDAIDS Allergy (Mild, Uncoded 06/02/24 10:01) RASH Ibuprofen Allergy (Unknown, Uncoded 06/02/24 10:01) bleeding ulcer Latex tape Allergy (Unknown, Uncoded 06/02/24 10:01) Rash NSAIDS/ASA Allergy (Unknown, Uncoded 06/02/24 10:01) BLEEDING ULCER Medication List - Last Reconciled 12/29/24 by Efren Duggan MD acetaminophen (Tylenol Extra Strength) 500 mg PO Q6H PRN alirocumab (Praluent Pen) 150 mg subcut Q2W aspirin (Adult Low Dose Aspirin) 81 mg PO DAILY cholecalciferol (vitamin D3) 2,000 units PO DAILY coenzyme Q10 (CoQ-10) 200 mg PO DAILY colesevelam 1,875 mg (3 x 625 mg) PO BID ezetimibe 10 mg PO DAILY furosemide 40 mg PO DAILY metoprolol tartrate 12.5 mg PO BID omeprazole 40 mg PO QAM rosuvastatin 40 mg PO DAILY Tirosint (levothyroxine) 175 mcg PO DAILY NS zinc acetate 25 mg PO DAILY HPI Comments Details: Izzy comes for follow-up. She has been doing well from cardiac perspective. Her carotid ultrasound September showed moderately severe stenosis in the right side which is stable. Left-sided shows mild disease. Echocardiogram shows normally functioning bioprosthetic aortic valve. She says she has not been able to exercise much due to the weather. Otherwise she has been doing regular exercise before that. Denies any exertional chest pain or shortness of breath. No prolonged palpitation irregular heartbeat. Takes all her medications. Last LDL on quadruple therapy at 35 mg/dL of LDL. [facility] Medical History Morbid obesity with BMI of 45.0-49.9, adult Annual visit for general adult medical examination with abnormal findings Right elbow pain Severe aortic stenosis Right elbow pain Atherosclerosis of both carotid arteries Osteoarthritis Dyslipidemia Hypertension Thyroid nodule Hypothyroidism Surgical History S/p TAVR (transcatheter aortic valve replacement), bioprosthetic History of esophagogastroduodenoscopy (EGD) History of left knee replacement Hx of endarterectomy Hx of breast biopsy Hx of tubal ligation Hx of tonsillectomy Hx of cholecystectomy Family History Father Heart valve replaced Abdominal aortic aneurysm Mother Enlarged heart Hodgkins lymphoma Cancer Social History Housing: House Alcohol intake: current Patient Tobacco Use Status: Never used Tobacco e-Cigarette/Vaping Use: Never Used service: No Current occupational status: retired Cognitive needs: No Hearing needs: No Vision needs: No Review of Systems Const Denies chills, Denies fatigue, Denies fever(s), Denies frequent falls, Denies weakness, Denies weight gain and Denies weight loss ENT Denies dizziness Card Denies chest pain, Denies leg edema, Denies lightheadedness, Denies palpitations, Denies dyspnea, Denies dyspnea on exertion, Denies orthopnea and Denies other (loss of consciousness) Resp Denies cough, Denies dyspnea and Denies dyspnea on exertion GI Denies hematochezia and Denies change in stool character Musc Denies abnormal gait, Denies muscle weakness, Denies numbness, Denies radiating pain into limb and Denies tingling Neuro Denies abnormal gait, Denies dizziness, Denies frequent falls, Denies numbness, Denies tingling and Denies weakness Endo Denies fatigue and Denies palpitations Physical Exam Vital Signs: Last Vital Signs Pulse 97 12/29/24 10:28 BP 120/74 12/29/24 10:28 BMI result Body Mass Index 45.0 Const General: cooperative, comfortable, no acute distress, alert, awake and well groomed Nutritional Appearance: obese morbidly obese Orientation/consciousness: patient oriented x3 Limitations: no limitations Neck Neck: Yes trachea midline and Yes JVD Carotids: bruit on the right Resp Effort & Inspection: normal respiratory effort Auscultation: clear to auscultation bilaterally Cardio Jugular venous distension: no JVD Rate: regular rate Rhythm: regular rhythm Heart sounds: S1 normal heart sound present, no click, no gallops and Murmur heart sound present systolic early Peripheral pulses: Peripheral pulses 2+ throughout GI Auscultation: normal bowel sounds Skin General skin exam: no rashes or lesions noted Neuro General: patient oriented x3 and no focal motor deficits Extrem General: Yes no clubbing, cyanosis or edema Office Procedures EKG Details: EKG shows normal sinus rhythm with left axis deviation otherwise no abnormalities 52324-[id number], Complete Assessment & Plan Assessment & Plan (1) S/p TAVR (transcatheter aortic valve replacement), bioprosthetic: Code(s): Z95.3 - Presence of xenogenic heart valve Category: Surgical Plan: Status post transcatheter aortic valve replacement which is working well. Continue low-dose aspirin therapy for life. SBE prophylaxis as per ACC/aha guidelines. Continue aggressive vascular risk factor modification, see below. Follow-up echocardiogram in 1 year's time. (2) Atherosclerosis of both carotid arteries: Code(s): I65.23 - Occlusion and stenosis of bilateral carotid arteries Category: Medical Plan: Bilateral carotid disease right greater than left. Clinically doing well with no progressive disease and no symptoms. Advised to call me with any new neurologic symptoms. Continue aggressive risk factor modification. Low-dose aspirin therapy for life. Her LDL is very well optimized and will stop Welchol. Follow-up lipid panel in 3 months. Continue aggressive blood pressure control which is currently well optimized. Follow-up carotid duplex in 1 year's time. Encouraged to maintain activity level as tolerated and participate in aggressive weight loss program. Will follow up in the clinic in 1 year's time, sooner p.r.n.. Thank you for allowing me to partake in her care Orders: Orders US carotid duplex BI 1 Year I65.23 - Occlusion and stenosis of bilateral carotid arteries CA echo transthoracic complete 1 Year Z95.3 - Presence of xenogenic heart valve Lipid Panel 3 Months I65.23 - Occlusion and stenosis of bilateral carotid arteries Medications: Discontinued colesevelam Discontinued Reason: No Longer Medically Relevant 1,875 mg (3 x 625 mg) PO BID 540 tabs 1RF Coding Level of Care Code Est Pt Level 4 (87254) Complex EM visit Add On G2211 Diagnoses S/p TAVR (transcatheter aortic valve replacement), bioprosthetic Z95.3 Atherosclerosis of both carotid arteries I65.23 CPT Codes EKG - CPT: 30284-[id number], Complete ([id number])
--- OUTSIDE RECORDS SUMMARY | 2024-12-29 11:24 | XMS_ITS | Patient Health Record ---
Author Organization [facility] Address [address] [place] [address] Care Team Providers Care Home Theater Experience Expert Name Role Phone Isidro ANDRADE, Radha Primary Care Provider Romeo Broussard Jr [phone] ALLERGIES Allergen (clinical drug ingredient) Drug/Non Drug [...] Problem Colon cancer screening (Z12.11) Active confirmed 247021876 Problem Gastroesophageal reflux disease without esophagitis (K21.9) Active confirmed 603247880 Problem Fatty liver (K76.0) Active confirmed 19 7837602 Problem Peptic ulcer disease (K27.9) Active confirmed 96995905 Problem RUQ pain (R10.11) Active confirmed 3017 14714 VITAL SIGNS Temperature 97.3 degrees Fahrenheit 09/28/2024 Blood pressure diastolic 00 mm Hg 09/28/2024 Height 64.5 in 09/28/2024 Blood pressure systolic 000 mm Hg 09/28/2024 Weight 270 lb 6 oz lbs 09/28/2024 BMI 45.69 kg/m2 09/28/2024 Encounters Encounter Location Date Provider Diagnosis [facility] [address] [place] [address] 03/04/2024 Romeo Meyers Jr [facility] [address] [facility] [address] [facility] [address] [place] [address] 05/29/2024 Romeo Meyers Jr [facility] [address] [facility] [address] [place] [address] 09/28/2024 Romeo Meyers Jr Fatty liver K76.0 and Gastroesophageal reflux disease without esophagitis K21.9 [facility] [address] [facility] [address] [place] [address] 02/28/2024 Romeo Meyers Jr ASSESSMENTS Encounter Date [...] Name:Romeo cooper Jr, 09/29/2025 09:20:00 AM, [address] [facility] [address] [facility], [address], [place], [address], Insurance Providers Payer Name Payer Address Payer Phone Subscriber Number Group Number Insured Name Patient Relationship to Insured Coverage Start Date Coverage End Date [facility] [address] [facility] SARAH QUINONES [phone] [id number] MANDY VERONICA Self - patient is the [...]
--- OUTSIDE RECORDS SUMMARY | 2024-12-29 11:25 | XMS_ITS ---
Author Organization [facility] Address [address] [place] [address] Care Team Providers Care Keymodule Assembly Supervisor Name Role Phone Isidro ANDRADE, Radha Primary Care Provider Paul Meyers Jr, Romeo Meade REASON FOR VISIT Patient presents today for abdominal pain Encounters Encounter Location Date Provider Diagnosis [facility] [address] [place] [address] 03/04/2024 Romeo Meyers Jr PLAN OF TREATMENT Next Appt Details Provider Name:Romeo cooper Jr, 09/29/2025 09:20:00 AM, [address] [place] [address], [address], [place], [address],
--- OUTSIDE RECORDS SUMMARY | 2024-12-29 11:25 | XMS_ITS ---
Author Organization [facility] Address [address] [place] [address] Care Team Providers Care Day Haul Youth Supervisor Name Role Phone Isidro ANDRADE, Radha Primary Care Provider Paul Meyers Jr, Romeo Meade REASON FOR VISIT Patient presents today for abdominal pain Encounters Encounter Location Date Provider Diagnosis [facility] [address] [facility] [place] [address] 05/29/2024 Romeo Meyers Jr PLAN OF TREATMENT Next Appt Details Provider Name:Romeo cooper Jr, 09/29/2025 09:20:00 AM, [address] [place] [address], [address], [place], [address],
--- OUTSIDE RECORDS SUMMARY | 2024-12-29 11:25 | XMS_ITS ---
Author Organization [facility] Address [address] [place] [address] Care Team Providers Care Print Shop Helper Name Role Phone Isidro ANDRADE, Radha Primary Care Provider Romeo Broussard Jr Unavailable ALLERGIES Allergen (clinical drug ingredient) Drug/Non Drug [...] Problem Fatty liver (K76.0) Active confirmed 19 8890522 Problem Gastroesophageal reflux disease without esophagitis (K21.9) Active confirmed 363443015 VITAL SIGNS BMI 45.69 kg/m2 09/28/2024 Blood pressure systolic 000 mm Hg 09/28/20 24 Blood pressure diastolic 00 mm Hg 024 Height 64.5 in 09/28/2024 Temperature 97.3 degrees Fahrenheit 09/28/20 24 Weight 270 lb 6 oz lbs 09/28/2024 Encounters Encounter Location Date Provider Diagnosis [facility] [address] [place] [address] 09/28/2024 Romeo Meyers Jr Fatty liver K76.0 [...] Name:Romeo cooper Jr, 09/29/2025 09:20:00 AM, [address], [address], [place], [address],
== END 2024-12-29 11:04 | disposition home or self-care (01) ==
PROVIDERS: PCP Internal Medicine; Visit Provider Internal Medicine Cardiovascular Disease
DX: Z95.3 Presence of xenogenic heart valve (principal); I65.23 Occlusion and stenosis of bilateral carotid arteries
CPT/HCPCS: 93010; 99214; G2211

== ENCOUNTER → 2024-12-29 10:26 | Outpatient (BNVA) | payer MEDICARE, SELFPAY | PROVIDERS: PCP Internal Medicine; Visit Provider Internal Medicine Cardiovascular Disease | DX: I65.23 Occlusion and stenosis of bilateral carotid arteries (principal); Z95.3 Presence of xenogenic heart valve | CPT/HCPCS: 93005; 99212 ==

== ENCOUNTER 2025-01-20 10:59 | Outpatient (REF) | payer MEDICARE, SELFPAY ==
--- OUTSIDE RECORDS SUMMARY | 2025-01-20 12:52 | XMS_ITS ---
Author Organization [facility] Address [address] [place] [address] Care Team Providers Care Instant Print Operator Name Role Phone Isidro ANDRADE, Radha Primary Care Provider Romeo Broussard Jr Unavailable [phone] Allergies Allergen (clinical drug ingredient) Drug/Non Drug Allergy documented on EMR Reaction Allergy Type Onset Date Status ibuprofen Ibuprofen sesitivity to stomach Drug Allergy Active REASON FOR VISIT Patient presents today for abdominal pain. Medications Medication SIG (Take, Route, Frequency, Duration) Notes [...] for 28 Active Hydralazine-HCTZ 25 mg Active Immunizations Vaccine Route Administration Date Status Comme nts Influenza Unknown 09/28/2024 Refused Problems Problem Type SNOMED Code ICD Code Onset Dates Problem Status W/U Status Risk Notes Problem Fatty liver (K76.0) Active confirmed Problem [id number] Gastroesophageal reflux disease without esophagitis (K21.9) Active confirmed Vital Signs Temperature 97.3 degrees Fahrenheit 09/28/20 24 Blood pressure systolic 000 mm Hg 09/28/20 24 Blood pressure diastolic 00 mm Hg 024 Height 64.5 in 09/28/2024 Weight 270 lb 6 oz lbs 09/28/2024 BMI 45.69 kg/m2 09/28/2024 Encounters Encounter Location Date Provider Diagnosis [facility] [address] [place] [address] 09/28/2024 Romeo Meyers Jr Fatty liver K76.0 and Gastroesophageal reflux disease without esophagitis K21.9 Assessments Encounter Date Diagnosis (ICD Code) Assessment Notes Treatment Notes Treatment Clinical Notes Section Notes 09/28/2024 Fatty liver (ICD-10 - K76.0) Fatty liver - nonalcoholic material was printed We discussed fatty liver today. We discussed diet, lifestyle modifications , and weight management as well as treatment of underlying conditions including diabetes and cholesterol. She will have followup laboratory studies including liver function tests and fibrosis testing. Reflux symptoms are under good control on her present regimen and she will continue to use omeprazole for reflux. Followup in one year. 09/28/2024 Gastroesophageal reflux disease without esophagitis (ICD-10 - K21.9) We discussed fatty liver today. We discussed diet, lifestyle modifications , and weight management as well as treatment of underlying conditions including diabetes and cholesterol. She will have followup laboratory studies including liver function tests and fibrosis testing. Reflux symptoms are under good control on her present regimen and she will continue to use omeprazole for reflux. Followup in one year. Plan Of Treatment Treatment Notes Assessment Notes Fatty liver Fatty liver - nonalc oholic material was printed Pending Test Test Name Order Date LIVER PROFILE 09/28/2024 CBC w/o DIFF 09/28/2024 Liver Fibrosis Pnl 09/28/2024 Next Appt Details Follow Up: 1 Year, Reason: Provider Name:Romeo cooper Jr, 09/29/2025 09:20:00 AM, [address], [address], [place], [address], Progress Notes * IZZY GALVAN TDOB: [birth year] (73 yo F)Acc No.[id number]:09/28/2024 Progress Notes Patient:?IZZY GALVAN Provider:?Romeo Meyers MD :1950???Age:73 Y???Sex:Female D ate:09/28/2024 Address:[address] [place], [place] [address] Pcp:Radha Felix MD Subjective: * Chief Complaints: * ???1. Patient presents today for abdominal pain.. * HPI: ???New symptom(s):? Izzy is a pleasant 73-year-old woman seen today in followup of gastroesophageal reflux disease. Since we saw her last, she's been doing well. She has no complaints of dysphagia, hematemesis, or melena. Weight and appetite have been stable. ?She was seen last in February 2023. At that time, she had some right upper quadrant pain and imaging was done which showed fatty liver. We reviewed this today. She has no complaints of jaundice, pruritus, or fatigue. She has no history of liver disease and does not drink alcohol excessively. Liver function tests were last obtained several years ago and were normal. They should be updated. * Medical History:?Hypercholes terolemia, Hypertension, Degenerative joint disease, Hypothyroidism, Aortic stenosis, Thyroid nodule, Peptic ulcer disease, EGD 08/29 antral and duodenal ulcers, followup EGD 11/30 healing, H. pylori negative., Colonoscopy 09/21, normal, ten-year followup. Screening with stool DNA testing 09/01 negative, (patient preference). * Surgical History:?cholecyste ctomy , tonsillectomy , tubal ligation , appendectomy , left knee replacement , Left carotid endarterectomy 2012, TAVR 09/2022. * Family History:?Father: dece ased.?Mother: .? Negative for colon cancer or polyps. No family history of liver cancer. * Social History:?Tobacco Use:?Tobacco Use/Smoking?Are you a: nonsmoker.?Drugs/Alcohol:?Alcohol Screen?Points: 2, Interpretation: Negative.?Miscellaneous:?Marital status: . Occupation: retired. ???occasional alcohol, no tobacco. * Medications:?Taking Zinc , T aking Vitamin D3 , Taking Tylenol Arthritis Pain , Taking Hydralazine-HCTZ 25 mg , Taking Zetia 10mg , Taking Welchol 625mg , Taking Aspirin 81mg , Taking Omeprazole 40 MG Capsule Delayed Release TAKE 1 CAPSULE BY MOUTH EVERY DAY 30 MINUTES BEFORE BREAKFAST , Taking Praluent 75 MG/ML Solution Auto- injector INJECT 75MG SUBCUTANEOUSLY EVERY 2 WEEKS Subcutaneous , Taking Tirosint 125 MCG Capsule Oral , Taking Colesevelam HCl 625 MG Tablet TAKE 3 TABLETS BY MOUTH TWICE DAILY Oral , Taking Clopidogrel Bisulfate 75 MG Tablet Oral , Taking Metoprolol Tartrate 25 MG Tablet Oral , Taking Rosuvastatin Calcium 40 MG Tablet TAKE 1 TABLET BY MOUTH DAILY Oral , Taking Ezetimibe 10 MG Tablet TAKE 1 TABLET BY MOUTH DAILY Oral , Taking Omeprazole 40 MG Capsule Delayed Release 1 capsule 30 minutes before morning meal Orally Once a day, Medication List reviewed and reconciled with the patient * Allergies:?Ibuprofen: sesiti vity to stomach. Objective: * Vitals:?Wt: 270 lb 6 oz, Ht: 64.5 in, BMI:45.69 Index, BP: 000/00 mm Hg, Temp: 97.3. * Examination: ???General Examination: ???On examination today, she appears well. Skin is anicteric. Assessment: * Assessment: 1.?Fatty liver - K76.0 (Prim bharat)?2.?Gastroesophageal reflux disease without esophagitis - K21.9? We discussed fatty liver tod ay. We discussed diet, lifestyle modifications, and weight management as well as treatment of underlying conditions including diabetes and cholesterol. She will have followup laboratory studies including liver function tests and fibrosis testing. Reflux symptoms are under good control on her present regimen and she will continue to use omeprazole for reflux. Followup in one year. Plan: * Treatment: * Immunizations:? Influenza (Not administered - Refused: Patient decision) * Procedure Codes:?3017F COLOR ECTAL CA SCREEN DOC REV, G9903 Pt scrn tbco id as non user, G9744 PATIENT NOT ELIG D/T ACTIVE DX HTN * Preventive Medicine:? ??Counseling:?Care goal follow-up plan:?Above Normal BMI Follow-up?Giving encouragement to exercise,?BMI management provided?Yes.? ??Urinary Incontinence:?Urinary Incontinence?Assessment:?Absent,?Plan of care documented:?No, reason not specified.? ??Screenings:?Fall Risk Screening?Fall Risk Assessment:?No falls in the past year,?Screening:?No falls in the past year,?Assessment:?Not performed, no reason specified,?Plan of Care:?Not documented, no reason specified.? * Follow Up:?1 Year * * Sign off status: Completed true * Provider:?Romeo Meyers MD Date:?1 11/28/2023 Generated for Carla payton/Edward/Marylu on:?01/20/2025 12:52 PM EDT History and Physical Notes * HPI (History of Present Illness) Category Sub-Category Detail Notes Category Not es New symptom(s) Izzy is a pleasant 73-year-old woman seen today in followup of gastroesophageal reflux disease. Since we saw her last, she's been doing well. She has no complaints of dysphagia, hematemesis, or melena. Weight and appetite have been stable. She was seen last in February 2023. At that time, she had some right upper quadrant pain and imaging was done which showed fatty liver. We reviewed this today. She has no complaints of jaundice, pruritus, or fatigue. She has no history of liver disease and does not drink alcohol excessively. Liver function tests were last obtained several years ago and were normal. They should be updated. Examination Category Sub-Category Detail Notes Category Not es General Examination On exami nation today, she appears well. Skin is anicteric.
--- OUTSIDE RECORDS SUMMARY | 2025-01-20 12:52 | XMS_ITS ---
Author Organization [facility] Address [address] [place] [address] Care Team Providers Care Utility Worker Film Processing Name Role Phone Isidro ANDRADE, Radha Primary Care Provider Paul Meyers Jr, Romeo Meade REASON FOR VISIT Patient presents today for abdominal pain Encounters Encounter Location Date Provider Diagnosis [facility] [address] [place] [address] 05/29/2024 Romeo Meyers Jr Plan Of Treatment Next Appt Details Provider Name:Romeo cooper Jr, 09/29/2025 09:20:00 AM, [address], [address], [place], [address], Progress Notes * VERONICA GALVAN TDOB: [birth year] (74 yo F)Acc No.[id number]:05/29/2024 Progress Notes Patient:?VERONICA GALVAN Provider:?Romeo Meyers MD :1950???Age:73 Y???Sex:Female D ate:05/29/2024 Address:[address] [place] [address] Gregg Hernandez [id number] Pcp:Radha Felix MD Subjective: * Chief Complaints: * ???1. Patient presents today for abdominal pain. * Medical History:? Objective: * Vitals:? Assessment: Plan: * Treatment: * * The named appointment provid er may or may not be the originator of this progress note, and it is not deemed complete until electronically signed by the appointment provider. Sign off status: Pending * Provider:?Romeo Myeers MD Date:?0 05/29/2024 Generated for Carla payton/Edward/Ghanshyamitting on:?01/20/2025 12:52 PM EDT
--- OUTSIDE RECORDS SUMMARY | 2025-01-20 12:52 | XMS_ITS ---
Author Organization [facility] Address [address] [place] [address] Care Team Providers Care Wire Coating Operator Metal Name Role Phone Isidro ANDRADE, Radha Primary Care Provider Paul Meyers Jr, Romeo Meade REASON FOR VISIT Patient presents today for abdominal pain Encounters Encounter Location Date Provider Diagnosis [facility] [address] [place] [address] 03/04/2024 Romeo Meyers Jr Plan Of Treatment Next Appt Details Provider Name:Romeo cooper Jr, 09/29/2025 09:20:00 AM, [address], [address], [place], [address], Progress Notes * VERONICA GALVAN TDOB: [birth year] (74 yo F)Acc No.[id number]:03/04/2024 Progress Notes Patient:?VERONICA GALVAN Provider:?Romeo Meyers MD :1950???Age:73 Y???Sex:Female D ate:03/04/2024 Address:[address] [place] [address] Gre[place] Hernandez [id number] Pcp:Radha Felix MD Subjective: * Chief Complaints: * ???1. Patient presents today for abdominal pain. * Medical History:? Objective: * Vitals:? Assessment: Plan: * Treatment: * * The named appointment provid er may or may not be the originator of this progress note, and it is not deemed complete until electronically signed by the appointment provider. Sign off status: Pending * Provider:?Romeo Meyers MD Date:?0 03/04/2024 Generated for Carla payton/Edward/Ghanshyamitting on:?01/20/2025 12:52 PM EDT
--- OUTSIDE RECORDS SUMMARY | 2025-01-20 12:52 | XMS_ITS | Patient Health Record ---
Author Organization [facility] Address [address] [place] [address] Care Team Providers Care Corrugator Name Role Phone Isidro ANDRADE, Radha Primary Care Provider Romeo Broussard Jr Allergies Allergen (clinical drug ingredient) Drug/Non Drug Allergy documented on EMR Reaction Allergy Type Onset Date Status ibuprofen Ibuprofen sesitivity to stomach Drug Allergy Active Reason For Referral No Information Medications Medication SIG (Take, Route, Frequency, Duration) [...] Vitamin D3 Active Tylenol Arthritis Pain Active Immunizations Vaccine Route Administration Date Status Comme nts Influenza Unknown 09/28/2024 Refused Problems Problem Type SNOMED Code ICD Code Onset Dates Problem Status W/U Status Risk Notes Problem 653402207 Colon cancer screening (Z12.11) Active confirmed Problem 640928784 Gastroesophageal reflux disease without esophagitis (K21.9) Active confirmed Problem 367921478 Fatty liver (K76.0) Active confirmed Problem 62272934 Peptic ulcer dis ease (K27.9) Active confirmed Problem 755752917 RUQ pain (R10.11) Active confirmed Vital Signs Temperature 97.3 degrees Fahrenheit 09/28/2024 Blood pressure diastolic 00 mm Hg 09/28/2024 Height 64.5 in 09/28/2024 Blood pressure systolic 000 mm Hg 09/28/2024 Weight 270 lb 6 oz lbs 09/28/2024 BMI 45.69 kg/m2 09/28/2024 Encounters Encounter Location Date Provider Diagnosis [facility] [address] [place] [address] 09/28/2024 Romeo Meyers Jr Fatty liver K76.0 and Gastroesophageal reflux disease without esophagitis K21.9 [facility] [address] [place] [address] 02/28/2024 Romeo Meyers Jr Assessments Encounter Date Diagnosis (ICD Code) Assessment Notes Treatment Notes Treatment Clinical Notes Section Notes 09/28/2024 Gastroesophageal reflux disease without esophagitis [...] for reflux. Followup in one year. 09/28/2024 Fatty liver (ICD-10 - K76.0) Fatty [...] Followup in one year. Plan Of Treatment Pending Test Test Name Order Date LIVER PROFILE 09/28/2024 CBC w/o DIFF 09/28/2024 CBC w/o DIFF 09/03/2019 US ABD 02/28/2023 TSH REFLEX FREE T4 09/03/2019 Liver Fibrosis Pnl 09/28/2024 Future Test Test Name Order Date COLONOSCOPY VIA STOMA CONTROL OF BLEEDIN G ANY METHOD 09/11/2011 Next Appt Details Provider Name:Romeojuli cooper Jr, 09/29/2025 09:20:00 AM, [address] [facility], [address], [place], [address], Insurance Providers Payer Name Payer Address Payer Phone Subscriber Number Group Number Insured Name Patient Relationship to Insured Coverage Start Date Coverage End Date [facility] [address] [place] [phone] [id number] VERONICA GALVAN Self - patient is the insured Medical (General) History Medical History History ICD Code hypercholesterolemia hypertension [...]
[2025-01-20 14:21] LABS: Free T4 (Free Thyroxine) 1.38 ng/dL (0.71-1.85); Thyroid Stimulating Hormone 0.83 uIU/mL (0.32-4.0)
== END 2025-01-20 11:00 | disposition home or self-care (01) ==
LOC: HO.HMGCLDS 10:59
PROVIDERS: PCP Internal Medicine; Visit Provider Internal Medicine Endocrinology, Diabetes & Metabolism
DX: E03.9 Hypothyroidism, unspecified (principal)
CPT/HCPCS: 36415; 84439; 84443

== ENCOUNTER 2025-02-17 10:17 | Outpatient (REF) | payer MEDICARE, SELFPAY ==
--- OUTSIDE RECORDS SUMMARY | 2025-02-17 11:37 | XMS_ITS | Patient Health Record ---
Author Organization [facility] Address [address] [place] [address] Care Team Providers Care Quality Improvement Manager Name Role Phone Isidro ANDRADE, Radha [...] Problem Status W/U Status Risk Notes Problem [id number] Colon cancer screening (Z12.11) Active confirmed Problem 852843174 Gastroesophageal reflux disease without esophagitis (K21.9) Active confirmed Problem 415930346 Fatty liver (K76.0) Active confirmed Problem 38856840 Peptic ulcer dis ease (K27.9) Active confirmed Problem 557839159 RUQ pain (R10.11) Active confirmed Vital Signs Temperature 97.3 degrees Fahrenheit 09/28/2024 Blood pressure diastolic 00 mm Hg 09/28/2024 Height 64.5 in 09/28/2024 Blood pressure systolic 000 mm Hg 09/28/2024 Weight 270 lb 6 oz lbs 09/28/2024 BMI 45.69 kg/m2 09/28/2024 Encounters Encounter Location Date Provider Diagnosis [facility] [address] [place] [address] 09/28/2024 Romeo Meyers Jr Fatty liver K76.0 and Gastroesophageal reflux disease without esophagitis K21.9 [facility] [address] [place] [address] 02/28/2024 Romeo Meyers Jr Assessments Encounter Date [...] Date LIVER PROFILE 09/28/2024 CBC w/o DIFF 09/03/2019 CBC w/o DIFF 09/28/2024 US ABD 02/28/2023 TSH REFLEX FREE T4 09/03/2019 Liver Fibrosis Pnl 09/28/2024 Future Test Test Name Order Date COLONOSCOPY VIA STOMA CONTROL OF BLEEDIN G ANY METHOD 09/11/2011 Next Appt Details Provider Name:Romeojuli cooper Jr, 09/29/2025 09:20:00 AM, [address] [facility], [address], [place], [address], Insurance Providers Payer Name Payer Address Payer Phone Subscriber Number Group Number Insured Name Patient Relationship to Insured Coverage Start Date Coverage End Date [facility] [address] [place] [phone] [id number] VERONICA GALVAN Self - patient is the [...]
--- OUTSIDE RECORDS SUMMARY | 2025-02-17 11:37 | XMS_ITS ---
Author Organization [facility] Address [address] [facility] [address] [place] [address] Care Team Providers Care Wood Router Hand Name Role Phone Isidro ANDRADE, Radha Primary Care Provider Paul Meyers Jr, Romeo Meade REASON FOR VISIT Patient presents today for abdominal pain Encounters Encounter Location Date Provider Diagnosis [facility] [address] [place] [address] 03/04/2024 Romeo Meyers Jr Plan Of Treatment Next Appt Details Provider Name:Romeo cooper Jr, 09/29/2025 09:20:00 AM, [address] [facility], [address], [place], [address], Progress Notes * VERONICA GALVAN TDOB: [birth year] (74 yo F)Acc No.[id number]:03/04/2024 Progress Notes Patient:?VERONICA GALVAN Provider:?Romeo Meyers MD :1950???Age:73 Y???Sex:Female D ate:03/04/2024 Address:[address] [place] [address] Gregg Hernandez [id number] Pcp:Radha Felix MD Subjective: * Chief Complaints: [...] Meyers MD Date:?0 03/04/2024 Generated for Carla payton/Edward/Marylu on:?02/17/2025 11:37 AM EDT
--- OUTSIDE RECORDS SUMMARY | 2025-02-17 11:38 | XMS_ITS ---
Author Organization [facility] Address [address] [place] [address] Care Team Providers Care Design Tech Name Role Phone Isidro ANDRADE, Radha Primary Care Provider Romeo Broussard Jr Unavailable [phone] Allergies Allergen (clinical drug ingredient) Drug/Non Drug [...] Problem Fatty liver (K76.0) Active confirmed Problem 157114074 Gastroesophageal reflux disease without esophagitis (K21.9) Active confirmed Vital Signs Temperature 97.3 degrees Fahrenheit 09/28/20 24 Blood pressure systolic 000 mm Hg 09/28/20 24 Blood pressure diastolic 00 mm Hg 024 Height 64.5 in 09/28/2024 Weight 270 lb 6 oz lbs 09/28/2024 BMI 45.69 kg/m2 09/28/2024 Encounters Encounter Location Date Provider Diagnosis [facility] [address] [place] [address] 09/28/2024 Romeo Meyers Jr Fatty liver K76.0 [...] Name:Romeo cooper Jr, 09/29/2025 09:20:00 AM, [address], [address], [place], [address], Progress Notes * IZZY GALVAN TDOB: [birth year] (73 yo F)Acc No.[id number]:09/28/2024 Progress Notes Patient:?IZZY GALVAN Provider:?Romeo Meyers MD :1950???Age:73 Y???Sex:Female D ate:09/28/2024 Address:[address] [place], [place] [address] Pcp:Radha Felix MD Subjective: * Chief Complaints: [...] MD Date:?1 11/28/2023 Generated for Carla payton/Edward/Marylu on:?02/17/2025 11:37 AM EDT History and Physical Notes * HPI [...]
--- OUTSIDE RECORDS SUMMARY | 2025-02-17 11:38 | XMS_ITS ---
Author Organization [facility] Address [address] [facility] [address] [place] [address] Care Team Providers Care Lawyers Name Role Phone Isidro ANDRADE, Radha Primary Care Provider Paul Meyers Jr, Romeo Meade REASON FOR VISIT Patient presents today for abdominal pain Encounters Encounter Location Date Provider Diagnosis [facility] [address] [facility] [address] [place] [address] 05/29/2024 Romeo Meyers Jr Plan Of Treatment Next Appt Details Provider Name:Romeo cooper Jr, 09/29/2025 09:20:00 AM, [address] [facility], [address], [place], [address], Progress Notes * VERONICA GALVAN TDOB: [birth year] (74 yo F)Acc No.[id number]:05/29/2024 Progress Notes Patient:?VERONICA GALVAN Provider:?Romeo Meyers MD :1950???Age:73 Y???Sex:Female D ate:05/29/2024 Address:[address] [place] [address] Gregg Hernandez [phone] Pcp:Radha Felix MD Subjective: * Chief Complaints: [...] status: Pending * Provider:?Romeo Meyers MD Date:?0 05/29/2024 Generated for Carla payton/Edward/Marylu on:?02/17/2025 11:37 AM EDT
[2025-02-17 14:02] LABS: Alanine Aminotransferase 18 U/L (0-31); Anion Gap 8 (12-20); Aspartate Amino Transferase 34 U/L (5-31); Blood Urea Nitrogen 17 mg/dL (9-16); Calcium 9.4 mg/dL (8.4-10.2); Carbon Dioxide 29 mmol/L (22-29); Chloride 108 mmol/L (96-108); Estimated Glomerular Filt Rate > 60; Glucose Fasting 113 mg/dL (60-99); Potassium 3.9 mmol/L (3.3-5.1); Sodium 141 mmol/L (135-145)
== END 2025-02-17 10:18 | disposition home or self-care (01) ==
LOC: HO.HMGCLDS 10:17
PROVIDERS: PCP Internal Medicine; Visit Provider Internal Medicine
DX: E78.5 Hyperlipidemia, unspecified (principal); I10 Essential (primary) hypertension; Z78.0 Asymptomatic menopausal state
CPT/HCPCS: 36415; 80048; 82306; 84450; 84460

== ENCOUNTER 2025-03-08 13:49 | Outpatient (AMB) | payer MEDICARE, SELFPAY ==
[2025-03-08 14:20] VITALS: BP 126/80; PULSE 80; O2SAT 97; BMI 45.3
--- NOTE | 2025-03-08 14:20 | MHC.OFFWIV ---
Intake Vital Signs 03/08/25 14:20 Height 5 ft 4 in Weight 264 lb BMI 45.3 BP 126/80 Blood Pressure Location Rt brachial Position Sitting Pulse 80 Pulse Source Pulse Oximeter Pulse Oximetry (%) 97 Oxygen Delivery Method Room Air Intake Visit Reasons: EP Toe irritation, swelling Intake Note: Patient here for toe irritation/rash on 2nd toe of right foot. Patient Tobacco Use Status: Never used Tobacco Allergies codeine [Codeine] Allergy (Mild, Verified 03/08/25 14:21) NAUSEA, nausa BANDAIDS Allergy (Mild, Uncoded 03/08/25 14:21) RASH Ibuprofen Allergy (Unknown, Uncoded 03/08/25 14:21) bleeding ulcer Latex tape Allergy (Unknown, Uncoded 03/08/25 14:21) Rash NSAIDS/ASA Allergy (Unknown, Uncoded 03/08/25 14:21) BLEEDING ULCER Do you need a note to return to daycare/school/sports/work: No HPI HPI Comments History of Present Illness Details History of Present Illness - The patient is a 74-year-old female presenting with a rash and significant itching between her first 2 toes on the right foot. - The condition began following the use of corn removers on the second toe due to its overlap with the big toe. - The corn developed and was treated with removal pads until it detached, leading to some skin peeling. - She noted persistent itching that escalated and spread, resembling a rash in the area where the corn was removed. - The affected site is swollen but shows no infectious signs like warmth or discharge. - Hydrocortisone cream offered minimal relief. - The patient used Band-Aids, which might have aggravated the condition. Physical Exam General: Cooperative, healthy appearing, comfortable, no acute distress and well developed Orientation: Patient oriented x3 Limitations: No limitations Head: Normal to inspection Ears: Hearing grossly normal bilaterally Nose: Normal External nose present Face and sinus: Normal facial exam Eyes: Appearance normal, both eyes and all related structures Neck: Normal visual inspection and Yes full ROM Respiratory: Normal respiratory effort and able to speak in complete sentences. Skin: right foot, 1nd and 2nd digit have slightly raised erythematous rash with no warmth or drainage. Neuro: Patient oriented x3 Extremities: as above, otherwise normal [facility] Medical History Morbid obesity with BMI of 45.0-49.9, adult Annual visit for general adult medical examination with abnormal findings Right elbow pain Severe aortic stenosis Right elbow pain Atherosclerosis of both carotid arteries Osteoarthritis Dyslipidemia Hypertension Thyroid nodule Hypothyroidism Surgical History S/p TAVR (transcatheter aortic valve replacement), bioprosthetic History of esophagogastroduodenoscopy (EGD) History of left knee replacement Hx of endarterectomy Hx of breast biopsy Hx of tubal ligation Hx of tonsillectomy Hx of cholecystectomy Family History Father Heart valve replaced Abdominal aortic aneurysm Mother Enlarged heart Hodgkins lymphoma Cancer Social History Housing: House Alcohol intake: current Patient Tobacco Use Status: Never used Tobacco e-Cigarette/Vaping Use: Never Used service: No Current occupational status: retired Cognitive needs: No Hearing needs: No Vision needs: No Review of Systems Const All systems reviewed & are unremarkable except as noted in HPI and below Physical Exam Vital Signs: Last Vital Signs Pulse 80 03/08/25 14:20 BP 126/80 03/08/25 14:20 Pulse Ox 97 03/08/25 14:20 Oxygen Delivery Method Room Air 03/08/25 14:20 BMI result Body Mass Index 45.3 Assessment & Plan Assessment & Plan (1) Contact dermatitis: Code(s): L25.9 - Unspecified contact dermatitis, unspecified cause Qualifiers: Contact dermatitis type: irritant Contact dermatitis trigger: drugs in contact with skin Qualified Code(s): L24.4 - Irritant contact dermatitis due to drugs in contact with skin Plan: I recommend the application of triamcinolone cream, a mid-potency topical steroid, to address the inflammatory rash and alleviate itching in the affected area on the patient's toes. The cream should be applied twice daily for at least one week without covering the area further to avoid irritation, as likely seen with prior Band-Aid use. This treatment will help manage the allergic reaction or dermatitis caused by previous use of corn remover pads. The patient is scheduled to follow up with a tool design drafter for further evaluation of potential fungal issues with her toenails and she has a PCP appt in 7 days if no improvement, she can follow up with her PCP. Patient was informed and verbally consented to the use of an ambient scribe for clinic note documentation during this visit. Medications: New triamcinolone acetonide 0.1% 1 appl topical BID 30 grams 0RF Coding Level of Care Code Est Pt Level 3 (90523) Diagnoses Irritant contact dermatitis due to drug in contact with skin L24.4 Contact dermatitis type: irritant Contact dermatitis trigger: drugs in contact with skin
--- OUTSIDE RECORDS SUMMARY | 2025-03-08 16:34 | XMS_ITS | Patient Health Record ---
[facility] Address [address] [facility] [place] [address] Care Team Providers Care Ocean Rescue Lieutenant Name Role Phone Isidro ANDRADE, Radha Thomas Primary Care Provider Un available Candy Trinidad Unavailable [phone] Benedict Last Unavailable [phone] Allergies Allergen (clinical drug ingredient) Drug/Non Drug Allergy documented on EMR Reaction Allergy Type Onset Date Status Adhesive tape (uncoded) severe rash Allergy Active codeine Codeine Sulfate nausea Drug Allergy A ctive Reason For Referral No Information Medications Medication SIG (Take, Route, Frequency, Duration) Notes Start Date End Date Status Omeprazole 40 MG (Prior Auth#:[id number]) Oral for 30 Active Ezetimibe 10 MG (Prior Auth#:[id number]) Oral for 90 Active hydroCHLOROthiazide 25 MG (Prior Auth#:[id number]) Oral for 90 Active Praluent 75 MG/ML (Prior Auth#:[id number]) Subcutaneous for 28 Active Synthroid 200 MCG (Prior Auth#:[id number]) Oral for 30 Active Rosuvastatin Calcium 40 MG (Prior Auth#:[id number]) Oral for 90 Active Welchol 625 MG (Prior Auth#:[id number]) Oral for 90 Active Social History Tobacco Use: Social History Observation Description Date Details (start date - stop date) Never Smoker NA - NA Tobacco Use/Smoking Question Answer Notes Are you a: nonsmoker Additional Findings: Tobacco Non-User Current no n-smoker Alcohol Screen Question Answer Notes Did you have a drink containing alcohol in the p ast year? Yes Points 0 Interpretation Negative Tobacco use other than smoking: Question Answer Notes Are you an other tobacco user? No Problems Problem Type SNOMED Code ICD Code Onset Dates Problem Status W/U Status Risk Notes Problem Acquired hammer toe of right foot (4745282853056 105) Other hammer toe(s) (acquired), right foot (M20.41) Active confirmed Problem Acquired hammer toe of left foot (5524427291202 103) Other hammer toe(s) (acquired), left foot (M20.42) Active confirmed Encounters Encounter Location Date Provider Diagnosis [facility] [address] [place] [address] 03/08/2025 Benedict Last Plan Of Treatment Next Appt Details Provider Name:Candy Cruz alison, 04/27/2025 10:30:00 AM, [address] [facility], [address], [place], [address], Insurance Providers Payer Name Payer Address Payer Phone Subscriber Number Group Number Insured Name Patient Relationship to Insured Coverage Start Date Coverage End Date [employer] [place] [employer] [facility] [address] [place] [address] Izzy Weller Self - patient is the insured Medical (General) History Medical History History ICD Code Arthritis gall bladder Chicken pox Joint implants/screws thyroid Surgical History Surgery Date(Month/Year) endarterectomy 03/2013 knee replacement 05/2010 appendectomy 08/1999 cholecystectomy 04/1991 tonsillectomy 11/1957 Hospitalization History Reason Date(Month/Year) Follow up for upper endoscopy 11/2019
--- OUTSIDE RECORDS SUMMARY | 2025-03-08 16:34 | XMS_ITS ---
Author Organization [facility] [place] Address [address] [place] [address] Care Team Providers Care K 12 Principal Name Role Phone Isidro ANDRADE, Radha Thomas Primary Care Provider Un available Candy Trinidad Unavailable [phone] Benedict Last Unavailable [phone] REASON FOR VISIT ON Encounters Encounter Location Date Provider Diagnosis [facility] [address] [address] 03/08/2025 Benedict Last Plan Of Treatment Next Appt Details Provider Name:Candy rosas, 04/27/2025 10:30:00 AM, [address], [address], Progress Notes * Izzy GALVAN TDOB: [birth year] (74 yo F)Acc No.[id number]:03/08/2025 Patient:?Izzy GALVAN :1950???Age:74 Y???Sex:Female Address:[address] [place] [address] [place] [address] * true * Date:? Generated for Printi ng/Fadesmondg/eTransmitting on:?03/08/2025 04:33 PM EDT
== END 2025-03-08 14:55 | disposition home or self-care (01) ==
PROVIDERS: PCP Internal Medicine; Visit Provider Physician Assistant
DX: L24.4 Irritant contact dermatitis due to drugs in contact with skin (principal)

== ENCOUNTER → 2025-03-08 13:49 | Outpatient (BNVA) | payer MEDICARE, SELFPAY | PROVIDERS: PCP Internal Medicine; Visit Provider Physician Assistant | DX: L24.4 Irritant contact dermatitis due to drugs in contact with skin (principal) | CPT/HCPCS: 99212 ==

== ENCOUNTER 2025-03-15 12:02 | Outpatient (AMB) | payer MEDICARE, SELFPAY ==
[2025-03-15 12:40] VITALS: BP 128/78; PULSE 86; RESP 17; TEMP 36.6; O2SAT 96; BMI 45.2
--- NOTE | 2025-03-15 12:40 | MHC.PC.OV ---
Vital Signs 03/15/25 12:40 Height 5 ft 4 in Weight 263 lb 6 oz BMI 45.2 BP 128/78 Blood Pressure Location Rt brachial Position Sitting Respiration 17 Pulse 86 Pulse Source Pulse Oximeter Temp 97.9 F Temp Source Oral Pulse Oximetry (%) 96 Oxygen Delivery Method Room Air Intake Visit Reasons: PE Intake Note: Pt is here today for an annual physical. Last mammogram 04/21/24 Last bone density 04/16/23 Last colonoscopy 08/14/11. Allergies codeine [Codeine] Allergy (Mild, Verified 03/15/25 12:52) NAUSEA, nausa BANDAIDS Allergy (Mild, Uncoded 03/15/25 12:52) RASH Ibuprofen Allergy (Unknown, Uncoded 03/15/25 12:52) bleeding ulcer Latex tape Allergy (Unknown, Uncoded 03/15/25 12:52) Rash NSAIDS/ASA Allergy (Unknown, Uncoded 03/15/25 12:52) BLEEDING ULCER Medication List - Last Reconciled 03/15/25 by Radha Felix MD acetaminophen (Tylenol Extra Strength) 500 mg PO Q6H PRN alirocumab (Praluent Pen) 150 mg subcut Q2W aspirin (Adult Low Dose Aspirin) 81 mg PO DAILY cholecalciferol (vitamin D3) 2,000 units PO DAILY coenzyme Q10 (CoQ-10) 200 mg PO DAILY ezetimibe 10 mg PO DAILY furosemide 40 mg PO DAILY metoprolol tartrate 12.5 mg PO BID omeprazole 40 mg PO QAM rosuvastatin 40 mg PO DAILY Tirosint (levothyroxine) 175 mcg PO DAILY NS zinc acetate 25 mg PO DAILY Tobacco use date assessed: 03/15/25 Fall risk assessment: No Falls in past year Last assessed Fall Risk: 03/15/25 Dental Screening Dental Screen Date: 03/15/25 Did you have a dental visit in the last 12 months?: Yes Did you have a dental problem in the last 6 months where you did not have access to dental care?: No Was dental information given to patient?: Patient has dentist HPI PE HPI Details 74 year-old lady here today for her physical exam. She is up-to-date with her screening mammogram , last done 04/21/2024; a bone density scan 04/16/23 showed normal bone density in lumbar spine and left hip and femur; up-to-date with her colon cancer screening, had a Cologuard test done in 2021 came back with negative results, due again in 2024. She is up-to-date with all her vaccines She has hypothyroidism, with latest TSH with now within normal limits. Continued on Tirosint 175 mcg daily She has history of severe aortic stenosis with symptoms, s/p aortic valve replacement with bioprosthetic aortic valve, doing well she is currently being followed by cardiology, with a follow-up echocardiogram to be done in 1 year's time. Continued on low-dose aspirin therapy. Needs SBE prophylaxis as per ACC/[place] guidelines. She has also bilateral carotid artery stenosis, s/p left carotid endarterectomy. Last neck CTA showed 60% stenosis in the right internal carotid artery. Continued with aggressive medical therapy. Recent labs showed LDL cholesterol and blood pressure is at goal on current therapy. Encouraged to continue to participate in heart healthy lifestyle with aggressive weight loss program as regular physical activity. Complains of pain over lateral aspect of right elbow, worse when she does repetitive motion with her right forearm. Also has been having intermittent episodes of numbness and tingling a tips of fingers of both hands. Denies any loss of strength, no history of trauma. [facility] Medical History (Updated 03/22/25 @ 03:53 by Radha Felix MD) Impacted cerumen, left ear Numbness of fingers Golfers elbow of right upper extremity Morbid obesity with BMI of 45.0-49.9, adult Annual visit for general adult medical examination with abnormal findings Right elbow pain Severe aortic stenosis Right elbow pain Atherosclerosis of both carotid arteries Osteoarthritis Dyslipidemia Hypertension Thyroid nodule Hypothyroidism Surgical History S/p TAVR (transcatheter aortic valve replacement), bioprosthetic History of esophagogastroduodenoscopy (EGD) History of left knee replacement Hx of endarterectomy Hx of breast biopsy Hx of tubal ligation Hx of tonsillectomy Hx of cholecystectomy Family History Father Heart valve replaced Abdominal aortic aneurysm Mother Enlarged heart Hodgkins lymphoma Cancer Social History Housing: House Alcohol intake: current Patient Tobacco Use Status: Never used Tobacco e-Cigarette/Vaping Use: Never Used service: No Current occupational status: retired Cognitive needs: No Hearing needs: No Vision needs: No Questionnaire PHQ-9 Over the last 2 weeks, how often have you been bothered by any of the following problems? 1. Little interest or pleasure in doing things: not at all 2. Feeling down, depressed, or hopeless: not at all 3. Trouble falling or staying asleep, or sleeping too much: not at all 4. Feeling tired or having little energy: not at all 5. Poor appetite or overeating: not at all 6. Feeling bad about yourself - or that you are a failure or have let yourself or your family down: not at all 7. Trouble concentrating on things, such as reading the newspaper or watching television: not at all 8. Moving or speaking so slowly that other people could have noticed. Or the opposite - being so fidgety or restless that you have been moving around a lot more than usual: not at all 9. Thoughts that you would be better off or of hurting yourself in some way: not at all Total score: 0 Depression Screening Interpretation: Negative Depression Screening Done: Yes 77444 - PHQ-9 Billing: Yes Source: Developed by Drs. Rohan Bernabe, Janet Robledo, Valentin Oliveira and colleagues, with an educational boone from [employer]. Thrive Questionnaire Date Thrive assessed: 03/15/25 I am a: Patient What is your living situation today?: I have a steady place to live Within the past 12 months, did the food you bought not last and you didn't have the money to get more?: Never true Within the past 12 months, did you worry whether your food would run out before you got money to buy more?: Never true Do you have trouble paying for medicines?: No Do you have trouble getting transportation to medical appointments?: No Do you have trouble paying your heating and electricity bill?: No Do you have trouble taking care of your child, family member or friend?: No Do you have trouble with day-to-day activities such as bathing, preparing meals, shopping, managing finances, etc.?: No Are you currently unemployed and looking for a job?: No Are you interested in more education?: No Please select the resources that you would like help with: None Currently or been in a relationship where the following occur: No concerns reported THRIVE Score: 0 AUDIT C Alcohol Use Questionnaire (AUDIT-C) 1. How often do you have a drink containing alcohol?: Monthly or less 2. How many drinks containing alcohol do you have on a typical day when you are drinking?: 1 or 2 3. How often do you have six or more drinks on one occasion?: Never Total Score: 1 Score Reviewed/Action Taken: Yes ANISHA-7 AMB Questionnaire ANISHA-7 Date ANISHA - 7 assessed: 03/15/25 Feeling nervous, anxious, or on edge: 0 = Not at all Not being able to stop or control worryin = Not at all Worrying too much about different things: 0 = Not at all Trouble relaxin = Not at all Being so restless that it is hard to sit still: 0 = Not at all Becoming easily annoyed or irritable: 0 = Not at all Feeling afraid as if something awful might happen: 0 = Not at all Total ANISHA-7 score (0-4 normal; 5-9 mild; 10-14 moderate; 15-21 severe): 0 Source: Developed by Drs. Rohan Bernabe, Janet Robledo, Valentin Oliveira and colleagues, with an educational boone from [employer]. ANISHA-7 Assessment Billing ANISHA-7 Assessment Tool: ANISHA-7 Assessment 99796 Review of Systems Const Denies chills, Denies fatigue, Denies fever(s), Denies frequent falls, Denies weakness, Denies weight gain and Denies weight loss Eyes Denies change in vision ENT Denies dizziness Card Denies chest pain, Denies leg edema, Denies lightheadedness, Denies palpitations, Denies dyspnea, Denies dyspnea on exertion, Denies orthopnea and Denies other (loss of consciousness) Resp Denies cough, Denies dyspnea and Denies dyspnea on exertion GI Denies hematochezia and Denies change in stool character Reports no additional complaints Musc Denies abnormal gait, Denies muscle weakness, Denies numbness, Denies radiating pain into limb and Denies tingling Skin/Breast Denies breast pain, Denies breast mass and Denies lesions Neuro Denies abnormal gait, Denies dizziness, Denies frequent falls, Denies numbness, Denies tingling and Denies weakness Psych Reports no additional complaints Endo Denies fatigue and Denies palpitations Jesse/Lymph Reports no additional complaints Physical exam (Primary Care) Vital Signs: Last Vital Signs Temp 97.9 F 03/15/25 12:40 Pulse 86 03/15/25 12:40 Resp 17 03/15/25 12:40 BP 128/78 03/15/25 12:40 Pulse Ox 96 03/15/25 12:40 Oxygen Delivery Method Room Air 03/15/25 12:40 BMI result Body Mass Index 45.2 BMI Assessment/Plan discussion: High BMI High, discussed plan: lifestyle, weight reduction and dietary Tobacco/Smoking Status: Tobacco use Status Tobacco use date assessed 03/15/25 03/15/25 12:42 Patient Tobacco Use Status Never used Tobacco 03/15/25 12:42 e-Cigarette/Vaping Use Never Used 03/15/25 12:42 PHQ-9: PHQ-9 Score PHQ-9: Total score 0 03/15/25 13:25 Depression Screening Interpretation: Negative Thrive Assessment: Date of Thrive Assessment Date Thrive assessed 03/15/25 03/15/25 12:50 Currently or been in a relationship where the following occur: No concerns reported Const Other: Alert oriented x3, no acute cardiorespiratory distress noted ambulatory with normal gait Orientation/consciousness: patient oriented x3 HENMT Head: Yes normocephalic Ears: hearing grossly normal bilaterally, TM's normal bilaterally and EAC's normal General nose exam: Normal external nose present and No nasal discharge present Face and sinus: Yes face symmetric Mouth: Normal oral and palatal mucosa present and moist mucous membranes Eyes General: appearance normal, both eyes and all related structures Neck Other: Thyroid gland nonpalpable Neck: Yes full ROM, Yes no lymphadenopathy and Yes supple Carotids: bruit on the right Chest Breast/axilla palpation: normal palpation of the breasts Resp Effort & Inspection: normal respiratory effort and able to speak in complete sentences Auscultation: clear to auscultation bilaterally Cardio Other: S S1-S2 present regular rate and rhythm Heart sounds: Murmur heart sound present systolic at the base GI Other: Normal bowel sounds, soft, nontender, no mass palpated General: Yes no CVA tenderness Back/Spine/Pelvis Back: no CVA tenderness and No back tenderness Skin General skin exam: no rashes or lesions noted and dry skin Neuro General: patient oriented x3, gait normal, tone normal, moves all extremities, Normal light touch and pain sensation, no focal motor deficits and CN's II-XI intact bilaterally Extrem General: Yes full ROM, Yes no joint enlargement, Yes no clubbing, cyanosis or edema, Yes no calf tenderness and Yes normal gait Psych Appearance: grossly normal and well kempt Mental Status: mental status grossly normal Speech and movement: Normal speech and movement present Affect: normal affect Attitude: cooperative Results Reviewed Results Reviewed: lauren: Izzy Weller Age/Sex: 74/F : 1950 Unit#: [id number] Attend Dr: Radha Felix MD Re02/17/25 Status: DEP REF Location: [facility] Disch: SPEC : [id number] ELIJAH: 02/17/25 STATUS: COMP REQ : [id number] RECD: 02/17/[address]: Radha Felix MD COMP: 02/17/25 ENTERED: 02/17/[address]: ORDERED: Met Prof Fast, AST, ALT, Vitamin D 25-OH Test Result Flag Reference Sodium 141 135-145 mmol/L Potassium 3.9 3.3-5.1 mmol/L CL 108 96-108 mmol/L CO2 29 22-29 mmol/L Gap 8 L 12-20 BUN 17 H 9-16 mg/dL Creat 0.70 0.5-1.4 mg/dL eGFR > 60 Chronic Kidney Disease: Estimated GFR < 60 mL/min/1.73m2 Severe Kidney Disease: Estimated GFR < 15 mL/min/1.73m2 FBS 113 H 60-99 mg/dL A fasting glucose from 100-125 mg/dl is considered impaired (pre-diabetes). CA 9.4 8.4-10.2 mg/dL AST (GOT) 34 H 5-31 U/L ALT (GPT) 18 0-31 U/L Vitamin D 25-OH 36.0 >30 ng/mL Health Based Reference Values* < 20 ng/mL Deficient 20-30 ng/mL Insufficient > 30 ng/mL Sufficient Coding Level of Care Code Est Pt Prev Care >65y(10408) Diagnoses Golfers elbow of right upper extremity M77.01 Annual visit for general adult medical examination with abnormal findings Z00. S/p TAVR (transcatheter aortic valve replacement), bioprosthetic Z95.3 Atherosclerosis of both carotid arteries I65.23 Osteoarthritis M19.90 Dyslipidemia E78.5 Primary hypertension I10 Hypertension type: primary hypertension Acquired hypothyroidism E03.9 Hypothyroidism type: acquired Additional Codes ANISHA-7 Assessment Billing - ANISHA-7 Assessment Tool: ANISHA-7 Assessment 39615 ([id number]) PHQ-9 - 47991 - PHQ-9 Billing: Yes ([id number]) Assessment & Plan Assessment & Plan (1) Golfers elbow of right upper extremity: Code(s): M77.01 - Medial epicondylitis, right elbow Category: Medical Plan: Advised?resting of joint , ice, acetaminophen as needed, stretching, physical therapy if no improvement, and in some cases, elbow braces or corticosteroid injections. (2) Annual visit for general adult medical examination with abnormal findings: Code(s): Z00. - Encounter for general adult medical examination with abnormal findings Category: Medical Plan: Recent fasting labs reviewed with patient.. Continue regular dental visit every 6 months and regular eye exams, at least every 2 years. Take adequate calcium in diet and vitamin-D 3 at 2000 IU per cap once a day, in addition to weight-bearing exercises to help maintain good muscle tone and weight control. Instructed to do self-breast exam, and continue with yearly mammogram, ordered bone density scan to be done this year. Up-to-date with her vaccines. Cologuard test ordered for colon cancer screening (3) S/p TAVR (transcatheter aortic valve replacement), bioprosthetic: Code(s): Z95.3 - Presence of xenogenic heart valve Category: Surgical Plan: Currently aspirin 81 mg daily (4) Atherosclerosis of both carotid arteries: Code(s): I65.23 - Occlusion and stenosis of bilateral carotid arteries Category: Medical Plan: Followed by cardiology continue aspirin 81 mg daily (5) Osteoarthritis: Code(s): M19.90 - Unspecified osteoarthritis, unspecified site Category: Medical Plan: Takes acetaminophen 500 mg 1 tablet every 6 hours as needed (6) Dyslipidemia: Code(s): E78.5 - Hyperlipidemia, unspecified Category: Medical Plan: Continued on ezetimibe 10 mg daily, rosuvastatin 40 mg daily and probably when 150 mg injected subcutaneously every 2 weeks. (7) Hypertension: Code(s): I10 - Essential (primary) hypertension Category: Medical Qualifiers: Hypertension type: primary hypertension Qualified Code(s): I10 - Essential (primary) hypertension Plan: Blood pressure at goal of less than 130/80. Continue with metoprolol tartrate 12.5 mg 1 tablet twice a day furosemide 40 mg daily. Reinforced importance of following a low sodium diet, getting regular exercise, and lowering stress levels. (8) Hypothyroidism: Code(s): E03.9 - Hypothyroidism, unspecified Category: Medical Qualifiers: Hypothyroidism type: acquired Qualified Code(s): E03.9 - Hypothyroidism, unspecified Plan: Continued on Tirosint 175 mcg daily Orders: Orders XR DEXA axial skeleton 04/27/25 Z13.820 - Encounter for screening for osteoporosis, Z78.0 - Asymptomatic menopausal state Referrals Cologuard Test Z12.11 - Encounter for screening for malignant neoplasm of colon, Z12.12 - Encounter for screening for malignant neoplasm of rectum
--- OUTSIDE RECORDS SUMMARY | 2025-03-15 13:41 | XMS_ITS ---
Author Organization [facility] Jose Morgan Address [address] [place] [address] Care Team Providers Care Molded Goods Inspector Trimmer Name Role Phone Isidro ANDRADE, Radha Thomas Primary Care Provider Un available Candy Trinidad Unavailable [phone] Benedict Last Unavailable [phone] REASON FOR VISIT ON Encounters Encounter Location Date Provider Diagnosis [facility] [address] [address] 03/08/2025 Benedict Last Plan Of Treatment Next Appt Details Provider Name:Candy rosas, 04/27/2025 10:30:00 AM, [address], [address], Progress Notes * Izzy GALVAN TDOB: [birth year] (74 yo F)Acc No.[id number]:03/08/2025 Patient:?Izzy GALVAN :1950???Age:74 Y???Sex:Female Address:[address] [place] [address] [place] [address] * true * Date:? Generated for Printi ng/Fadesmondg/eTransmitting on:?03/15/2025 01:41 PM EDT
--- OUTSIDE RECORDS SUMMARY | 2025-03-15 13:41 | XMS_ITS | Patient Health Record ---
Author Organization [facility] Address [address] [place] [address] Care Team Providers Care Supervisor Pressing Department Name Role Phone Isidro ANDRADE, Radha Primary Care Provider Romeo Brosusard Jr Allergies Allergen (clinical drug ingredient) Drug/Non [...] Problem Status W/U Status Risk Notes Problem 295140172 Colon cancer screening (Z12.11) Active confirmed Problem 298176712 Gastroesophageal reflux disease without esophagitis (K21.9) Active confirmed Problem 725970276 Fatty liver (K76.0) Active confirmed Problem 43120705 Peptic ulcer dis ease (K27.9) Active confirmed Problem 599028196 RUQ pain (R10.11) Active confirmed Vital Signs Temperature 97.3 degrees Fahrenheit 09/28/2024 Blood pressure diastolic 00 mm Hg 09/28/2024 Height 64.5 in 09/28/2024 Blood pressure systolic 000 mm Hg 09/28/2024 Weight 270 lb 6 oz lbs 09/28/2024 BMI 45.69 kg/m2 09/28/2024 Encounters Encounter Location Date Provider Diagnosis [facility] [address] [place] [address] 09/28/2024 Romeo Meyers Jr Fatty liver K76.0 [...] Name:Romeo cooper Jr, 09/29/2025 09:20:00 AM, [address] [facility], [address], [place], [address], Insurance Providers Payer Name Payer Address Payer Phone Subscriber Number Group Number Insured Name Patient Relationship to Insured Coverage Start Date Coverage End Date [facility] [address] [place] [phone] [id number] VERONICA GALVAN Self - patient is the [...]
--- OUTSIDE RECORDS SUMMARY | 2025-03-15 13:42 | XMS_ITS ---
Author Organization [facility] Address [address] [place] [address] Care Team Providers Care Software Business Analyst Name Role Phone Isidro ANDRADE, Radha Primary Care Provider Romeo Broussard Jr Unavailable Allergies Allergen (clinical drug ingredient) Drug/Non Drug [...] Problem Fatty liver (K76.0) Active confirmed Problem 535140037 Gastroesophageal reflux disease without esophagitis (K21.9) Active confirmed Vital Signs Temperature 97.3 degrees Fahrenheit 09/28/20 24 Blood pressure systolic 000 mm Hg 09/28/20 24 Blood pressure diastolic 00 mm Hg 024 Height 64.5 in 09/28/2024 Weight 270 lb 6 oz lbs 09/28/2024 BMI 45.69 kg/m2 09/28/2024 Encounters Encounter Location Date Provider Diagnosis [facility] [address] [place] [address] 09/28/2024 Romeo Meyers Jr Fatty liver K76.0 [...] Name:Romeo cooper Jr, 09/29/2025 09:20:00 AM, [address], [address], [place], [address], Progress Notes * IZZY GALVAN TDOB: [birth year] (73 yo F)Acc No.[id number]:09/28/2024 Progress Notes Patient:?IZZY GALVAN Provider:?Romeo Meyers MD :1950???Age:73 Y???Sex:Female D ate:09/28/2024 Address:[address] [place], [place] [phone] Pcp:Radha Felix MD Subjective: * Chief Complaints: [...] MD Date:?1 11/28/2023 Generated for Carla payton/Edward/Marylu on:?03/15/2025 01:42 PM EDT History and Physical Notes * [...]
--- OUTSIDE RECORDS SUMMARY | 2025-03-15 13:42 | XMS_ITS ---
Author Organization [facility] Address [address] [facility] [address] [facility] [address] [place] [address] Care Team Providers Care Blister Packaging Machine Operator Name Role Phone Isidro ANDRADE, Radha Primary Care Provider Paul Meyers Jr, Romeo Meade REASON FOR VISIT Patient presents today for abdominal pain Encounters Encounter Location Date Provider Diagnosis [facility] [address] [place] [address] 05/29/2024 Romeo Meyers Jr Plan Of Treatment Next Appt Details Provider Name:Romeo cooper Jr, 09/29/2025 09:20:00 AM, [address] [facility], [address], [place], [address], Progress Notes * VERONICA GALVAN TDOB: [birth year] (74 yo F)Acc No.[id number]:05/29/2024 Progress Notes Patient:?VERONICA GALVAN Provider:?Romeo Meyers MD :1950???Age:73 Y???Sex:Female D ate:05/29/2024 Address:[address] [place] [address] [id number] Pcp:Radha Felix MD Subjective: * Chief Complaints: [...] MD Date:?0 05/29/2024 Generated for Carla payton/Edward/Marylu on:?03/15/2025 01:42 PM EDT
--- OUTSIDE RECORDS SUMMARY | 2025-03-15 13:42 | XMS_ITS | Patient Health Record ---
Author [facility] Address [address] [facility] [place] [address] Care Team Providers Care Food Service Order Clerk Name Role Phone Isidro ANDRADE, Radha Thomas Primary Care Provider Un available Candy Trinidad Unavailable [phone] Benedict Last Unavailable [phone] Allergies Allergen (clinical drug ingredient) Drug/Non Drug Allergy documented on EMR Reaction Allergy Type Onset Date Status Adhesive tape (uncoded) severe rash Allergy Active codeine Codeine Sulfate nausea Drug Allergy A ctive Reason For Referral No Information Medications Medication SIG (Take, Route, Frequency, Duration) Notes Start Date End Date Status Omeprazole 40 MG (Prior Auth#:[id number]) Oral for 30 Active Ezetimibe 10 MG (Prior Auth#:[id number]) Oral for 90 Active hydroCHLOROthiazide 25 MG (Prior Auth#:[id number]) Oral for 90 Active Praluent 75 MG/ML (Prior Auth#:[id number]) Subcutaneous for 28 Active Synthroid 200 MCG (Prior Auth#:[id number]) Oral for 30 Active Rosuvastatin Calcium 40 MG (Prior Auth#:[id number]) Oral for 90 Active Welchol 625 MG (Prior Auth#:[id number]) Oral for 90 Active Social History Tobacco [...] Problem Status W/U Status Risk Notes Problem Other hammer toe(s) (acquired), right foot (M20.41) Active confirmed Problem Acquired hammer toe of left foot (9908801195015 103) Other hammer toe(s) (acquired), left foot (M20.42) Active confirmed Encounters Encounter Location Date Provider Diagnosis [facility] [place] [address] [place] [address] 03/08/2025 Benedict Last Plan Of Treatment Next Appt Details Provider Name:Candy rosas, 04/27/2025 10:30:00 AM, [address] [facility] [facility], [place], [address], Insurance Providers Payer Name Payer Address Payer Phone Subscriber Number Group Number Insured Name Patient Relationship to Insured Coverage Start Date Coverage End Date [employer] [address] [place] [address] Izzy Weller Self - patient is the insured Medical (General) History Medical History History ICD Code Arthritis gall bladder Chicken pox Joint implants/screws thyroid Surgical History Surgery Date(Month/Year) endarterectomy 03/2013 knee replacement 05/2010 appendectomy 08/1999 cholecystectomy 04/1991 tonsillectomy 11/1957 Hospitalization History Reason Date(Month/Year) Follow up for upper endoscopy 11/2019
--- OUTSIDE RECORDS SUMMARY | 2025-03-15 13:42 | XMS_ITS ---
Author Organization [facility] Address [address] [place] [address] Care Team Providers Care Stoker Mechanic Name Role Phone Isidro ANDRADE, Radha Primary Care Provider Paul Meyers Jr, Romeo Meade REASON FOR VISIT Patient presents today for abdominal pain Encounters Encounter Location Date Provider Diagnosis [facility] [address] [place] [address] 03/04/2024 Romeo Meyers Jr Plan Of Treatment Next Appt Details Provider Name:Romeo cooper Jr, 09/29/2025 09:20:00 AM, [address], [address], [place], [address], Progress Notes * VERONICA GALVAN TDOB: [birth year] (74 yo F)Acc No.[id number]:03/04/2024 Progress Notes Patient:?VERONICA GALVAN Provider:?Romeo Meyers MD :1950???Age:73 Y???Sex:Female D ate:03/04/2024 Address:[address] [place] [address] Gregg Hernandez [id number] Pcp:Radha Felix MD Subjective: * Chief Complaints: [...] MD Date:?0 03/04/2024 Generated for Carla payton/Edward/Marylu on:?03/15/2025 01:41 PM EDT
== END 2025-03-15 13:50 | disposition home or self-care (01) ==
LOC: HO.HMCC 12:03
PROVIDERS: PCP Internal Medicine; Visit Provider Internal Medicine
DX: M77.01 Medial epicondylitis, right elbow (principal); Z00.01 Encounter for general adult medical examination with abnormal findings; Z95.3 Presence of xenogenic heart valve; I65.23 Occlusion and stenosis of bilateral carotid arteries; M19.90 Unspecified osteoarthritis, unspecified site; E78.5 Hyperlipidemia, unspecified; I10 Essential (primary) hypertension; E03.9 Hypothyroidism, unspecified

== ENCOUNTER → 2025-03-15 12:02 | Outpatient (BNVA) | payer MEDICARE, SELFPAY | PROVIDERS: PCP Internal Medicine; Visit Provider Internal Medicine | DX: Z00.01 Encounter for general adult medical examination with abnormal findings (principal); M77.01 Medial epicondylitis, right elbow; I65.23 Occlusion and stenosis of bilateral carotid arteries; M19.90 Unspecified osteoarthritis, unspecified site; E78.5 Hyperlipidemia, unspecified; I10 Essential (primary) hypertension; E03.9 Hypothyroidism, unspecified; Z79.82 Long term (current) use of aspirin; Z79.899 Other long term (current) drug therapy; Z95.3 Presence of xenogenic heart valve | CPT/HCPCS: 96127; 99397 ==

== ENCOUNTER 2025-04-08 10:54 | Outpatient (REF) | payer MEDICARE, SELFPAY ==
--- OUTSIDE RECORDS SUMMARY | 2025-04-08 11:24 | XMS_ITS ---
Author Organization [facility] Address [address] [place] [address] Care Team Providers Care Lead Applications Developer Name Role Phone Isidro ANDRADE, Radha Primary Care Provider Paul Meyers Jr, Romeo Meade [phone] REASON FOR VISIT Patient presents today for abdominal pain Encounters Encounter Location Date Provider Diagnosis [facility] [address] [place] [address] 05/29/2024 Romeo Meyers Jr Plan Of Treatment Next Appt Details Provider Name:Romeo cooper Jr, 09/29/2025 09:20:00 AM, [address] [facility] [address], [address], [place], [address], Progress Notes * VERONICA GALVAN TDOB: [birth year] (74 yo F)Acc No.[id number]:05/29/2024 Progress Notes Patient:?VERONICA GALVAN Provider:?Romeo Meyers MD :1950???Age:73 Y???Sex:Female D ate:05/29/2024 Address:[address] [place] [address] Gregg Hernandez [id number] Pcp:Radha Felix MD Subjective: * Chief Complaints: [...] MD Date:?0 05/29/2024 Generated for Carla payton/Edward/Marylu on:?04/08/2025 09:17 AM EDT
[2025-04-08 14:03] LABS: Cholesterol 153 mg/dL (<200); HDL Cholesterol 47 mg/dL (>40); LDL Cholesterol Calculated 88 mg/dL (<100); Triglycerides 94 mg/dL (<150)
== END 2025-04-08 10:55 | disposition home or self-care (01) ==
LOC: HO.HMGCLDS 10:54
PROVIDERS: PCP Internal Medicine; Visit Provider Internal Medicine Cardiovascular Disease
DX: I65.23 Occlusion and stenosis of bilateral carotid arteries (principal)
CPT/HCPCS: 36415; 80061

== ENCOUNTER 2025-06-08 08:03 | Outpatient (REF) | payer MEDICARE, SELFPAY ==
--- OUTSIDE RECORDS SUMMARY | 2025-04-27 06:30 | XMS_ITS ---
Author Organization [facility] Address [address] [place] [address] Care Team Providers Care Putty Remover Name Role Phone Isidro ANDRADE, Radha Thomas Primary Care Provider Un available Dulce Melendez Unavailable [phone] Candy Trinidad Unavailable [phone] Encounters Encounter Location Date [facility] [address] [address] 04/27/2025 Candy Trinidad Plan Of Treatment Next Appt Details Provider Name:Dulce Melendez , 09/13/2025 09:00:00 AM, [address] [place], [address], Progress Notes * MANDYIzzy TDOB: [birth year] (74 yo F)Acc No.[id number]:04/27/2025 Progress Notes Patient: Izzy TEMPLE Provider: Gaetano Trinidad DPM :1950 A ge:74 Y S ex:Female Date:04/27/2025 Address:[address] [place], [place] [address]Gaetano [id number] Pcp:Jeanine Dorman Subjective: * Chief Complaints: * * Medical History: Objective: * Vitals: Assessment: Plan: * Treatment: * Images: * The named appointment provid er may or may not be the originator of this progress note, and it is not deemed complete until electronically signed by the appointment provider. Sign off status: Pending * Provider: Gaetano Trinidad DPM Date: 0 04/27/2025 Generated for Carla payton/Edward/Marylu on: 0 06/08/2025 08:06 AM EDT
--- NOTE | ~2025-06-08 | MM_ITS ---
EXAMINATION: DXA BONE DENSITY AXIAL HISTORY: Z13.820 - Encounter for screening for osteoporosis TECHNIQUE: Crowdfynd Dual energy absorptiometry (DEXA) of the lumbar spine, total left hip, and femoral neck was performed. COMPARISON: Comparison is made with the prior examination dated 04/16/2023. FINDINGS: The bone mineral density of the lumbar spine is 1.605 g/cm2, corresponding to a T-score of 3.7, and a Z-score of 4.2. This is indicative of normal bone mineral density. This represents a BMD change of 6.5% compared to the prior exam. This is statistically significant. The bone mineral density of the left total hip is 1.116 g/cm2, corresponding to a T-score of 0.9, and a Z-score of 1.7. This is indicative of normal bone mineral density. This represents a BMD change of -4.1% compared to the prior exam. This is statistically significant. The bone mineral density of the left femoral neck is 1.031 g/cm2, corresponding to a T-score of -0.1, and a Z-score of 1.1. This is indicative of normal bone mineral density. This represents a BMD change of 2.0% compared to the prior exam. FRACTURE RISK: The FRAX index suggests a ten year probability of major osteoporotic fracture of 6.4%, and of hip fracture 0.5%. MM/XR DEXA axial skeleton IMPRESSION: Based on bone mineral density, and according to World Health Organization (WHO) criteria, the diagnosis is consistent with normal bone mineral density. Statistically, 68% of repeat scans fall within 1 SD (+/- 0.010 g/cm2 for AP spine L1-L4) and 1 SD (+/- 0.012 g/cm2 for femur total) FRAX is a trademark of the [employer] [place] for Metabolic Bone Disease, a World Health Organization (WHO) Collaborating Center. Electronically signed by: Rohan Mejía MD 06/08/2025 08:56 AM EDT
--- NOTE | ~2025-06-08 | MM_ITS ---
EXAMINATION: MM SCREENING DIGITAL BREAST TOMOSYNTHESIS, BILATERAL CLINICAL INFORMATION: Screening. Asymptomatic. COMPARISON: Mammography: Comparison is made with available priors TECHNIQUE: Digital breast mammography with tomosynthesis is performed in both the craniocaudal and mediolateral oblique views along with computer-aided detection (CAD). FINDINGS: There are scattered areas of fibroglandular density (ACR BI-RADS breast composition Category b). There are no significant masses, abnormal calcifications, or other abnormalities. MM/MM tomosynthesis screening BI IMPRESSION: No mammographic evidence of malignancy. ASSESSMENT: BI-RADS BI-RADS 1 - Negative RECOMMENDATION: Routine annual mammography screening. 1 year F/U This examination should not preclude the clinical evaluation of a suspicious palpable abnormality. This patient's information was entered into a reminder system with a target due date for their next mammogram. Electronically signed by: Angeli Cade DO 06/17/2025 02:31 PM EDT
--- OUTSIDE RECORDS SUMMARY | 2025-06-08 08:05 | XMS_ITS | Patient Health Record ---
Author Organization [facility] Address [address] [place] [address] Care Team Providers Care Shoes Salesperson Name Role Phone Isidro ANDRADE, Radha Primary [...] Problem Status W/U Status Risk Notes Problem 226799537 Colon cancer screening (Z12.11) Active confirmed Problem 067678557 Gastroesophageal reflux disease without esophagitis (K21.9) Active confirmed Problem 619492607 Fatty liver (K76.0) Active confirmed Problem 89240170 Peptic ulcer dis ease (K27.9) Active confirmed Problem 450715131 RUQ pain (R10.11) Active confirmed Vital Signs Temperature 97.3 degrees Fahrenheit 09/28/2024 Blood pressure diastolic 00 mm Hg 09/28/2024 Height 64.5 in 09/28/2024 Blood pressure systolic 000 mm Hg 09/28/2024 Weight 270 lb 6 oz lbs 09/28/2024 BMI 45.69 kg/m2 09/28/2024 Encounters Encounter Location Date Provider Diagnosis [facility] [address] [place] [address] 09/28/2024 Romeo Meyers Jr Fatty liver K76.0 [...] Name:Romeo cooper Jr, 09/29/2025 09:20:00 AM, [address] [facility] [address] [facility], [address], [place], [address], Insurance Providers Payer Name Payer Address Payer Phone Subscriber Number Group Number Insured Name Patient Relationship to Insured Coverage Start Date Coverage End Date [facility] [address] [place] [phone] [id number] VERONICA GALVAN Self - patient is the [...]
[2025-06-08 13:58] LABS: Free T4 (Free Thyroxine) 1.39 ng/dL (0.71-1.85); Thyroid Stimulating Hormone 0.47 uIU/mL (0.32-4.0)
== END 2025-06-08 08:04 | disposition home or self-care (01) ==
LOC: HO.MAMMO 08:03
PROVIDERS: PCP Internal Medicine; Referring Provider Internal Medicine Endocrinology, Diabetes & Metabolism; Visit Provider Internal Medicine
DX: Z13.820 Encounter for screening for osteoporosis (principal); Z12.31 Encounter for screening mammogram for malignant neoplasm of breast; E03.9 Hypothyroidism, unspecified; Z78.0 Asymptomatic menopausal state
CPT/HCPCS: 36415; 77063; 77067; 77080; 84439; 84443

== ENCOUNTER → 2025-06-08 08:15 | Outpatient (BNV) | payer MEDICARE, SELFPAY | PROVIDERS: PCP Internal Medicine; Visit Provider Radiology Diagnostic Radiology | DX: E28.39 Other primary ovarian failure (principal) | CPT/HCPCS: 77080 ==

== ENCOUNTER 2025-06-09 08:47 | Outpatient (AMB) | payer MEDICARE, SELFPAY ==
--- OUTSIDE RECORDS SUMMARY | 2025-04-27 06:30 | XMS_ITS ---
Author Organization [facility] Address [address] [place] [address] Care Team Providers Care Wire Spiral Binder Name Role Phone Isidro ANDRADE, Radha Thomas Primary Care Provider Un available Dulce Melendez Unavailable [phone] Candy Trinidad Unavailable [phone] Encounters Encounter Location Date Provider [facility] [address] [address] 04/27/2025 Candy Trinidad Plan Of Treatment Next Appt Details Provider Name:Dulce Melendez , 09/13/2025 09:00:00 AM, [address] [place], [address], Progress Notes * MANDYIzzy TDOB: [birth year] (74 yo F)Acc No.[id number]:04/27/2025 Progress Notes Patient: Izzy TEMPLE Provider: Gaetano Trinidad DPM :1950 A ge:74 Y S ex:Female Date:04/27/2025 Address:[address] [place], [place] [id number] Pcp:Jeanine Dorman Subjective: * Chief Complaints: * [...] 04/27/2025 Generated for Carla payton/Edward/Marylu on: 0 06/09/2025 09:07 AM EDT
[2025-06-09 08:50] VITALS: BP 122/88; PULSE 88; O2SAT 97; BMI 46.1
--- NOTE | 2025-06-09 08:50 | MHC.OFFVIS ---
Vital Signs 06/09/25 08:50 Height 5 ft 4 in Weight 268 lb 11.896 oz BMI 46.1 BP 122/88 Blood Pressure Location Lt brachial Position Sitting Pulse 88 Pulse Source Pulse Oximeter Pulse Oximetry (%) 97 Oxygen Delivery Method Room Air Intake Visit Reasons: f/u hypothyroidism Intake Note: Patient present today for Hypothyroidism follow up visit. Allergies codeine (Codeine) Allergy (Mild, Verified 03/15/25 12:52) NAUSEA, nausa BANDAIDS Allergy (Mild, Uncoded 03/15/25 12:52) RASH Ibuprofen Allergy (Unknown, Uncoded 03/15/25 12:52) bleeding ulcer Latex tape Allergy (Unknown, Uncoded 03/15/25 12:52) Rash NSAIDS/ASA Allergy (Unknown, Uncoded 03/15/25 12:52) BLEEDING ULCER Medication List - Last Reconciled 06/09/25 by Rohan Hoffman MD acetaminophen (Tylenol Extra Strength) 500 mg PO Q6H PRN alirocumab (Praluent Pen) 150 mg subcut Q2W aspirin (Adult Low Dose Aspirin) 81 mg PO DAILY cholecalciferol (vitamin D3) 2,000 units PO DAILY coenzyme Q10 (CoQ-10) 200 mg PO DAILY colesevelam 1,875 mg (3 x 625 mg) PO BID ezetimibe 10 mg PO DAILY furosemide 40 mg PO DAILY metoprolol tartrate 12.5 mg (1/2 x 25 mg) PO BID multivitamin 1 tab PO DAILY omeprazole 40 mg PO QAM rosuvastatin 40 mg PO DAILY Tirosint (levothyroxine) 175 mcg PO DAILY NS zinc acetate 25 mg PO DAILY HPI Comments Details: 74 yo female today for follow-up visit, for hypothyroidism management She is feeling well. Patient reports that after was changed the preparation to Tirosint 175 mcg daily she is doing very well. She notes that she has more energy, she is sleeping better. Her skin feels better. Patient was diagnosed with hypothyroidism and 1995. She does have extensive family history of thyroid disease her mother has hypothyroidism in her daughter has Graves disease. She has had fluctuation in thyroid hormones level. She denies cold or heat intolerance, she has gained some weight in the last 3 months. She denies diarrhea, constipation, imsomnia, fatigue, dry skin, dysphagia, dyspnea, dysphonia, palpitations, irritability, anxiety. She denies recent excess iodine or IV contrast exposure, denies radiation to head or neck, denies thyroid surgery or biopsy, denies herbal or OTC medications. 11/25/2019 Right Thyroid Lobe: 3.0 x 0.8 x 1.1 cm, volume 1.4 mL. Parenchyma: The gland echotexture is homogeneous. Thyroid vascularity is normal. Left Thyroid Lobe: 2.8 x 0.9 x 1.0 cm, volume 1.3 mL. Parenchyma: The gland echotexture is homogeneous. Thyroid vascularity is normal. Isthmus: 0.2 cm in maximum AP dimension. RIGHT THYROID LOBE: There is 1 nodule seen. 1. Location: Inferior. Size: 0.5 x 0.3 x 0.2 cm. Nodule characteristics: Hypoechoic, smoothly marginated with no intranodular flow. ISTHMUS: No nodules. LEFT THYROID LOBE: There is 1 nodule seen. 1. Location: Middle. Size: 0.8 x 0.2 x 0.4 cm. Nodule characteristics: Hypoechoic, smoothly marginated with no intranodular flow. Likely simple cyst. NODES: A 1.1 cm largest lymph node in transverse axis, right neck. It appears benign. Laboratory Tests 01/19/20 08/02/20 01/30/21 08:30 08:00 07:33 Free T3 3.3 TSH 2.21 Free T4 1.20 TSH 3rd Generation 3.76 Laboratory Tests 01/19/20 05/31/20 08/02/20 08:30 08:41 08:00 25-OH Vitamin D Total 32.0 TSH Free T4 Free T3 3.3 TSH 3rd Generation 3.76 IgA Endomysial IgA Ab Titer Endomysial IgA Ab Tiss Transglutamin IgG Tiss Transglutamin IgA Thyroid Peroxidase Ab 6 Anti-Gliadin IgG Ab Anti-Gliadin IgA Ab 08/02/20 10/03/20 08:00 07:44 25-OH Vitamin D Total TSH 9.34 H Free T4 1.14 Free T3 TSH 3rd Generation IgA 417 H Endomysial IgA Ab Titer TNP Endomysial IgA Ab Negative Tiss Transglutamin IgG 3 Tiss Transglutamin IgA 1 Thyroid Peroxidase Ab Anti-Gliadin IgG Ab 7 Anti-Gliadin IgA Ab 13 Currently on Tirosint 175 ug . The patient is a 74-year-old female presenting with hypothyroidism. She is currently taking levothyroxine 175 mcg daily, and her thyroid levels are stable with this regimen. The patient reports no adverse symptoms related to her thyroid condition and adheres to her medication regimen by taking it first thing in the morning, separate from other supplements. The patient also reports experiencing peripheral neuropathy, characterized by numbness. She is taking magnesium citrate 48 mg daily, which she believes may help with nerve health, although the efficacy is uncertain. Additionally, the patient is taking turmeric with Moringa for inflammation, although the specific benefits are not well established. [facility] Medical History (Updated 03/22/25 @ 03:53 by Radha Felix MD) Impacted cerumen, left ear Numbness of fingers Golfers elbow of right upper extremity Morbid obesity with BMI of 45.0-49.9, adult Annual visit for general adult medical examination with abnormal findings Right elbow pain Severe aortic stenosis Right elbow pain Atherosclerosis of both carotid arteries Osteoarthritis Dyslipidemia Hypertension Thyroid nodule Hypothyroidism Surgical History S/p TAVR (transcatheter aortic valve replacement), bioprosthetic History of esophagogastroduodenoscopy (EGD) History of left knee replacement Hx of endarterectomy Hx of breast biopsy Hx of tubal ligation Hx of tonsillectomy Hx of cholecystectomy Family History Father Heart valve replaced Abdominal aortic aneurysm Mother Enlarged heart Hodgkins lymphoma Cancer Social History Housing: House Alcohol intake: current Patient Tobacco Use Status: Never used Tobacco e-Cigarette/Vaping Use: Never Used service: No Current occupational status: retired Cognitive needs: No Hearing needs: No Vision needs: No Physical Exam Vital Signs: Last Vital Signs Pulse 88 06/09/25 08:50 BP 122/88 06/09/25 08:50 Pulse Ox 97 06/09/25 08:50 Oxygen Delivery Method Room Air 06/09/25 08:50 BMI result Body Mass Index 46.1 Const Other: Thyroid gland is of normal size weighs by 15 g . There are no thyroid nodules palpated. Reflexes 2+ DTR. Assessment & Plan Assessment & Plan (1) Hypothyroidism: Code(s): E03.9 - Hypothyroidism, unspecified Category: Medical Qualifiers: Hypothyroidism type: acquired Qualified Code(s): E03.9 - Hypothyroidism, unspecified Plan: This 71-year-old white female with a history of longstanding hypothyroidism being replaced with Tirosint 175 ug . She appears to be clinically and biochemically euthyroid Plan is to continue the current therapy 1. Hypothyroidism The patient's thyroid levels are stable on the current dose of levothyroxine 175 mcg daily. She is advised to continue taking the medication separately from other supplements to avoid interference with absorption. The patient had an opportunity to ask questions regarding treatment plan. The patient expressed understanding and agreement with the above treatment plan. Patient was informed and verbally consented to the use of an ambient scribe for clinic note documentation during this visit. Medications: Refilled Tirosint (levothyroxine) 175 mcg PO DAILY 30 caps 4RF NS Coding Level of Care Code Est Pt Level 3 (46192) Diagnoses Acquired hypothyroidism E03.9 Hypothyroidism type: acquired
--- OUTSIDE RECORDS SUMMARY | 2025-06-09 09:07 | XMS_ITS | Patient Health Record ---
Author Organization [facility] Address [address] [place] [address] Care Team Providers Care Digital Marketing Project Manager Name Role Phone Isidro ANDRADE, Radha Primary Care Provider Rmoeo Broussard Jr [phone] Allergies Allergen (clinical drug ingredient) Drug/Non Drug [...] Problem Status W/U Status Risk Notes Problem 843911356 Colon cancer screening (Z12.11) Active confirmed Problem 367101663 Gastroesophageal reflux disease without esophagitis (K21.9) Active confirmed Problem 579941695 Fatty liver (K76.0) Active confirmed Problem 59265170 Peptic ulcer dis ease (K27.9) Active confirmed Problem 149456501 RUQ pain (R10.11) Active confirmed Vital Signs Temperature 97.3 degrees Fahrenheit 09/28/2024 Blood pressure diastolic 00 mm Hg 09/28/2024 Height 64.5 in 09/28/2024 Blood pressure systolic 000 mm Hg 09/28/2024 Weight 270 lb 6 oz lbs 09/28/2024 BMI 45.69 kg/m2 09/28/2024 Encounters Encounter Location Date Provider Diagnosis [facility] [address] [place] [address] 09/28/2024 Romeo Meyers Jr Fatty liver K76.0 [...] Name:Romeo cooper Jr, 09/29/2025 09:20:00 AM, [address] [facility], [address], [place], [address], Insurance Providers Payer Name Payer Address Payer Phone Subscriber Number Group Number Insured Name Patient Relationship to Insured Coverage Start Date Coverage End Date [employer] [address] [place] [phone] [id number] VERONICA GALVAN Self - patient is the [...]
== END 2025-06-09 09:16 | disposition home or self-care (01) ==
LOC: HO.ENCR 08:48
PROVIDERS: PCP Internal Medicine; Visit Provider Internal Medicine Endocrinology, Diabetes & Metabolism
DX: E03.9 Hypothyroidism, unspecified (principal)
CPT/HCPCS: 99213

== ENCOUNTER → 2025-06-09 08:47 | Outpatient (BNVA) | payer MEDICARE, SELFPAY | PROVIDERS: PCP Internal Medicine; Visit Provider Internal Medicine Endocrinology, Diabetes & Metabolism | DX: E03.9 Hypothyroidism, unspecified (principal) | CPT/HCPCS: 99212 ==